=== PATIENT | female | born 1955 | race Caucasian/White ===

== ENCOUNTER 2017-04-22 21:00 | Emergency (ER) | payer BC, OTHER ==
[2017-04-22] MEDS ORDERED: methylPREDNISolone SOD SUCCI 125 MG/2 ML VIAL IV STA (21:18)
[2017-04-22] MEDS ORDERED: IPRATROPIUM-ALBUTEROL 3 ML NEB INHALATION STA (21:18)
[2017-04-22] MEDS ORDERED: KETOROLAC 60 MG/2 ML VIAL IVP STA (21:21)
--- NOTE | 2017-04-22 21:27 | ED ---
General Adult HPI - General Chief complaint: Shortness of Breath Stated complaint: SOB/Chest Pain Time Seen by Provider: 04/22/17 21:05 Source: patient, RN notes reviewed Mode of arrival: wheelchair Limitations: no limitations - History of Present Illness Initial comments: Is a 61-year-old female presents emergency Department with a past medical history significant for COPD and she continues to smoke. Patient states that last Friday she's had a nonproductive cough. She states that today she was coughing real hard and her lower chest started to hurt every time she cough. Patient states she has no pain unless she is coughing. Patient states she short of breath but no different than her normal COPD. Patient denies any fever or chills. Patient denies any palpitations. Again patient has no chest pain except when she is coughing. Patient denies abdominal pain patient denies nausea vomiting diarrhea per patient denies lightheadedness dizziness or near syncopal episode. - Related Data Home Medications Medication Instructions Recorded Confirmed Albuterol Nebulized [Ventolin 2.5 mg INHALATION RT-QID PRN 06/17/16 04/22/17 Nebulized] Albuterol Sulfate [Proair 1 puff INHALATION RT-QID PRN 04/22/17 04/22/17 Respiclick] Ipratropium Nebulized [Atrovent 0.5 mg INHALATION RT-QID PRN 04/22/17 04/22/17 Nebulized] Previous Rx's Medication Instructions Recorded Ciprofloxacin HCl [Cipro] 500 mg PO Q12HR #20 tablet 04/22/17 predniSONE 40 mg PO DAILY #8 tab 04/22/17 Allergies Allergy/AdvReac Type Severity Reaction Status Date / Time latex Allergy Rash/Hives Verified 04/22/17 21:25 sulfamethoxazole Allergy Rash/Hives Verified 04/22/17 21:07 [From Bactrim] trimethoprim [From Bactrim] Allergy Rash/Hives Verified 04/22/17 21:07 amoxicillin AdvReac Vomiting Verified 04/22/17 21:07 Review of Systems ROS Statement: Those systems with pertinent positive or pertinent negative responses have been documented in the HPI. ROS Other: All systems not noted in ROS Statement are negative. Past Medical History Past Medical History: Cancer, COPD, GERD/Reflux, Osteoarthritis (OA) Additional Past Medical History / Comment(s): uterine cancer, MIGRAINES, SPONTANEOUS PNEUMOTHORAX X2, IRREG RYTHYM, BEGINNING OF MAC DEHENERATION,DIET CONTROLLED DIABETIC DOESNT CHECK BS OR TAKE ANY MEDS History of Any Multi-Drug Resistant Organisms: None Reported Past Surgical History: Appendectomy, Bladder Surgery, Section, Hysterectomy, Uterine Ablation Additional Past Surgical History / Comment(s): spontaneous pneumothorax X2/ CHEST TUBE WITH FIRST ONE, COLONOSCOPY POLYPECTOMY-BENIGN/EGD, RTWRIST GANGLION CYST REMOVED. Past Anesthesia/Blood Transfusion Reactions: No Reported Reaction Past Psychological History: Anxiety, Depression Smoking Status: Current every day smoker Past Alcohol Use History: None Reported Additional Past Alcohol Use History / Comment(s): SMOKES 1.5-2 PPD Past Drug Use History: None Reported - Past Family History Father Family Medical History: Cancer, Myocardial Infarction ([place]), Osteoarthritis (OA) Additional Family Medical History / Comment(s): WAS AN ALCOHOLIC/FELL DOWN FLIGHT OF STEPS HAD SKULL FX, LUNG CA Mother Family Medical History: COPD, Osteoarthritis (OA) Additional Family Medical History / Comment(s): GLAUCOMA General Exam - General Exam Comments Initial Comments: GENERAL: Patient is well-developed and well-nourished. Patient is nontoxic and well- hydrated and is in mild distress. ENT: Neck is soft and supple. No significant lymphadenopathy is noted. Oropharynx is clear. Moist mucous membranes. Neck has full range of motion without eliciting any pain. EYES: The sclera were anicteric and conjunctiva were pink and moist. Extraocular movements were intact and pupils were equal round and reactive to light. Eyelids were unremarkable. PULMONARY: Unlabored respirations. Good breath sounds bilaterally. Expiratory wheezing and rhonchi throughout CARDIOVASCULAR: There is a regular rate and rhythm without any murmurs gallops or rubs. ABDOMEN: Soft and nontender with normal bowel sounds. No palpable organomegaly was noted. There is no palpable pulsatile mass. SKIN: Skin is clear with no lesions or rashes and otherwise unremarkable. NEUROLOGIC: Patient is alert and oriented x3. Cranial nerves II through XII are grossly intact. Motor and sensory are also intact. Normal speech, volume and content. Symmetrical smile. MUSCULOSKELETAL: Normal extremities with adequate strength and full range of motion. No lower extremity swelling or edema. No calf tenderness. LYMPHATICS: No significant lymphadenopathy is noted PSYCHIATRIC: Normal psychiatric evaluation. Normal interpersonal interactions appears functionally intact in deals appropriately with others. No signs of depression. No signs of anxiety. Limitations: no limitations Course Vital Signs 04/22/17 04/22/17 04/22/17 21:05 21:17 21:48 Temperature 98.3 F Pulse Rate 77 78 Respiratory 22 22 22 Rate Blood Pressure 152/71 129/71 O2 Sat by Pulse 99 98 Oximetry 04/22/17 04/22/17 04/22/17 21:50 22:01 22:55 Temperature 97.9 F Pulse Rate 81 88 79 Respiratory 20 Rate Blood Pressure 136/67 O2 Sat by Pulse 97 Oximetry Medical Decision Making - Medical Decision Making EKG shows normal sinus rhythm at 76 bpm [place] interval is 122 QRS is 86 QT interval 390 QTC is 438. Patient's EKG shows no ST segment elevation or depression or T-wave abdomen is noted. Chest x-ray shows no acute abnormality. I went back and after the patient received a breathing treatment and steroids she was much more clear feeling much better and continued to sat between 9900% on room air. I discussed with the patient for at least 30 minutes the benefits of quitting smoking and the potential hazards of smoking. - Lab Data Result diagrams: 04/22/17 21:35 04/22/17 21:35 Lab Results 04/22/17 04/22/17 04/22/17 Range/Units 21:35 21:35 21:35 WBC 10.7 H (3.8-10.6) k/uL RBC 3.97 (3.80-5.40) m/uL Hgb 12.9 (11.4-16.0) gm/dL Hct 38.9 (34.0-46.0) % MCV 98.1 (80.0-100.0) fL MCH 32.6 (25.0-35.0) pg MCHC 33.2 (31.0-37.0) g/dL RDW 13.4 (11.5-15.5) % Plt Count 303 (150-450) k/uL Neutrophils % 58 % Lymphocytes % 33 % Monocytes % 3 % Eosinophils % 3 % Basophils % 1 % Neutrophils # 6.3 (1.3-7.7) k/uL Lymphocytes # 3.6 (1.0-4.8) k/uL Monocytes # 0.4 (0-1.0) k/uL Eosinophils # 0.3 (0-0.7) k/uL Basophils # 0.1 (0-0.2) k/uL PT (9.0-12.0) sec INR (<1.1) APTT (22.0-30.0) sec Sodium 141 (137-145) mmol/L Potassium 4.2 (3.5-5.1) mmol/L Chloride 106 (98-107) mmol/L Carbon Dioxide 24 (22-30) mmol/L Anion Gap 11 mmol/L BUN 18 H (7-17) mg/dL Creatinine 0.73 (0.52-1.04) mg/dL Est GFR (MDRD) Af Amer >60 (>60 ml/min/1.73 sqM) Est GFR (MDRD) Non-Af >60 (>60 ml/min/1.73 sqM) Glucose 97 (74-99) mg/dL Calcium 9.3 (8.4-10.2) mg/dL Magnesium 2.0 (1.6-2.3) mg/dL Total Bilirubin 0.4 (0.2-1.3) mg/dL AST 22 (14-36) U/L ALT 18 (9-52) U/L Alkaline Phosphatase 74 (38-126) U/L Total Creatine Kinase 31 (30-135) U/L CK-MB (CK-2) 0.5 (0.0-2.4) ng/mL CK-MB (CK-2) Rel Index 1.6 Troponin I <0.012 (0.000-0.034) ng/mL NT-Pro-B Natriuret Pep pg/mL Total Protein 6.6 (6.3-8.2) g/dL Albumin 4.1 (3.5-5.0) g/dL 04/22/17 04/22/17 Range/Units 21:35 21:35 WBC (3.8-10.6) k/uL RBC (3.80-5.40) m/uL Hgb (11.4-16.0) gm/dL Hct (34.0-46.0) % MCV (80.0-100.0) fL MCH (25.0-35.0) pg MCHC (31.0-37.0) g/dL RDW (11.5-15.5) % Plt Count (150-450) k/uL Neutrophils % % Lymphocytes % % Monocytes % % Eosinophils % % Basophils % % Neutrophils # (1.3-7.7) k/uL Lymphocytes # (1.0-4.8) k/uL Monocytes # (0-1.0) k/uL Eosinophils # (0-0.7) k/uL Basophils # (0-0.2) k/uL PT 9.8 (9.0-12.0) sec INR 1.0 (<1.1) APTT 23.0 (22.0-30.0) sec Sodium (137-145) mmol/L Potassium (3.5-5.1) mmol/L Chloride (98-107) mmol/L Carbon Dioxide (22-30) mmol/L Anion Gap mmol/L BUN (7-17) mg/dL Creatinine (0.52-1.04) mg/dL Est GFR (MDRD) Af Amer (>60 ml/min/1.73 sqM) Est GFR (MDRD) Non-Af (>60 ml/min/1.73 sqM) Glucose (74-99) mg/dL Calcium (8.4-10.2) mg/dL Magnesium (1.6-2.3) mg/dL Total Bilirubin (0.2-1.3) mg/dL AST (14-36) U/L ALT (9-52) U/L Alkaline Phosphatase (38-126) U/L Total Creatine Kinase (30-135) U/L CK-MB (CK-2) (0.0-2.4) ng/mL CK-MB (CK-2) Rel Index Troponin I (0.000-0.034) ng/mL NT-Pro-B Natriuret Pep 221 pg/mL Total Protein (6.3-8.2) g/dL Albumin (3.5-5.0) g/dL Disposition Clinical Impression: COPD with acute exacerbation, Bronchitis Disposition: HOME SELF-CARE Instructions: COPD (Chronic Obstructive Pulmonary Disease) (ED) Prescriptions: Ciprofloxacin HCl [Cipro] 500 mg PO Q12HR #20 tablet predniSONE 40 mg PO DAILY #8 tab Referrals: Butch Ramos DO [Primary Care Provider] - 1-2 days Time of Disposition: 23:04
[2017-04-22 22:04] LABS: Basophils # (A) 0.1 k/uL (0-0.2); Basophils % (A) 1 %; CH 32.4; CHCM 33.2; Eosinophils # (A) 0.3 k/uL (0-0.7); Eosinophils % (A) 3 %; HCT 38.9 % (34.0-46.0); HGB 12.9 gm/dL (11.4-16.0); Luc # (Auto) 0.19; Luc % (Auto) 2; Lymphocytes # (A) 3.6 k/uL (1.0-4.8); Lymphocytes % (A) 33 %; MCH 32.6 pg (25.0-35.0); MCHC 33.2 g/dL (31.0-37.0); MCV 98.1 fL (80.0-100.0); Mean Platelet Volume 6.9; Monocytes # (A) 0.4 k/uL (0-1.0); Monocytes % (A) 3 %; Neutrophils # (A) 6.3 k/uL (1.3-7.7); Neutrophils % (A) 58 %; RBC 3.97 m/uL (3.80-5.40); RDW 13.4 % (11.5-15.5); WBC 10.7 k/uL (3.8-10.6); WBC (Perox) 10.78
[2017-04-22 22:14] LABS: Prothrombin Time 9.8 sec (9.0-12.0)
--- NOTE | 2017-04-22 22:14 | XR ---
EXAM: XR Chest, 2 Views CLINICAL HISTORY: Reason: difficulty breathing TECHNIQUE: Frontal and lateral views of the chest. COMPARISON: Chest x-ray 06/17/2016. FINDINGS: Lungs: Unremarkable. No consolidation. Pleural space: Unremarkable. No pneumothorax. Heart: Unremarkable. No cardiomegaly. Mediastinum: Unremarkable. Bones/joints: Mild degenerative changes of the spine. IMPRESSION: No acute cardiopulmonary process.
[2017-04-22 22:17] LABS: ALT 18 U/L (9-52); AST 22 U/L (14-36); Alkaline Phosphatase 74 U/L (38-126); Anion Gap 11 mmol/L; Blood Urea Nitrogen 18 mg/dL (7-17); Calcium 9.3 mg/dL (8.4-10.2); Carbon Dioxide 24 mmol/L (22-30); Chloride 106 mmol/L (98-107); Glucose 97 mg/dL (74-99); Non-African American GFR(MDRD) >60 (>60 ml/min/1.73 sqM); Potassium 4.2 mmol/L (3.5-5.1); Sodium 141 mmol/L (137-145); Total Bilirubin 0.4 mg/dL (0.2-1.3); Total Protein 6.6 g/dL (6.3-8.2)
[2017-04-22 22:22] LABS: Creatine Kinase 31 U/L (30-135)
[2017-04-22 22:35] LABS: Creatine Kinase MB 0.5 ng/mL (0.0-2.4); Troponin I <0.012 ng/mL (0.000-0.034)
[2017-04-22 22:57] VITALS: RESP 20
[2017-04-22 23:45] VITALS: BP 130/65; PULSE 72; TEMP 98.2
== END 2017-04-22 23:30 | disposition home or self-care (01) ==
LOC: EC 21:00
DX: J44.1 Chronic obstructive pulmonary disease with (acute) exacerbation (principal); F17.200 Nicotine dependence, unspecified, uncomplicated; Z85.42 Personal history of malignant neoplasm of other parts of uterus; Z88.2 Allergy status to sulfonamides; Z88.0 Allergy status to penicillin; Z91.040 Latex allergy status
CPT/HCPCS: 36415; 94640; 93005; 83880; 80053; 82550; 82553; 83735; 84484; 85025; 85610; 85730; 87040; 71020; 99285; 96374; 96375; J2930; J1885

== ENCOUNTER 2017-12-01 22:18 | Observation (INO) | payer OTHER ==
[2017-12-01 22:23] VITALS: TEMP 97.8
--- NOTE | 2017-12-01 23:02 | ED ---
General Adult HPI - General Chief complaint: Chest Pain Stated complaint: Chest Pain Time Seen by Provider: 12/01/17 22:29 Source: patient, RN notes reviewed, old records reviewed Mode of arrival: ambulatory Limitations: no limitations - History of Present Illness Initial comments: 60-year-old female presenting for evaluation of chest pain. Patient states she had chest pain that began 2 hours prior to presentation. This was a substernal squeezing chest pain that radiated into her neck and jaw. Denies associated diaphoresis or nausea. She has a history of acid reflux and she has had several episodes similar to this in the past. She takes omeprazole on this has resolved her symptoms previously. She denies any exertional chest pain in the past. Symptoms began at rest today. No abdominal pain and no diaphoresis. Patient's pain did travel from her chest into her jaw and back. At the time my evaluation patient's pain is resolved. She is comfortable with no complaints. She has a family history of CAD and is a current smoker. Only medication she is currently taking his omeprazole. Patient denies rectal bleeding, denies melena. - Related Data Home Medications Medication Instructions Recorded Confirmed Albuterol Nebulized [Ventolin 2.5 mg INHALATION RT-QID PRN 06/17/16 12/01/17 Nebulized] Albuterol Sulfate [Proair 1 puff INHALATION RT-QID PRN 04/22/17 12/01/17 Respiclick] Omeprazole 40 mg PO DAILY PRN 12/01/17 12/01/17 Otc Sleep Aide 1 tab PO HS 12/01/17 12/01/17 Allergies Allergy/AdvReac Type Severity Reaction Status Date / Time latex Allergy Rash/Hives Verified 12/01/17 22:51 sulfamethoxazole Allergy Rash/Hives Verified 12/01/17 22:51 [From Bactrim] trimethoprim [From Bactrim] Allergy Rash/Hives Verified 12/01/17 22:51 Review of Systems ROS Statement: Those systems with pertinent positive or pertinent negative responses have been documented in the HPI. ROS Other: All systems not noted in ROS Statement are negative. Past Medical History Past Medical History: Cancer, COPD, GERD/Reflux, Osteoarthritis (OA) Additional Past Medical History / Comment(s): uterine cancer, MIGRAINES, SPONTANEOUS PNEUMOTHORAX X2, IRREG RYTHYM, BEGINNING OF MAC DEHENERATION,DIET CONTROLLED DIABETIC DOESNT CHECK BS OR TAKE ANY MEDS History of Any Multi-Drug Resistant Organisms: None Reported Past Surgical History: Appendectomy, Bladder Surgery, Section, Hysterectomy, Uterine Ablation Additional Past Surgical History / Comment(s): spontaneous pneumothorax X2/ CHEST TUBE WITH FIRST ONE, COLONOSCOPY POLYPECTOMY-BENIGN/EGD, RTWRIST GANGLION CYST REMOVED. Past Anesthesia/Blood Transfusion Reactions: No Reported Reaction Past Psychological History: Anxiety, Depression Smoking Status: Current every day smoker Past Alcohol Use History: Rare Past Drug Use History: None Reported - Past Family History Father Family Medical History: Cancer, Myocardial Infarction ([place]), Osteoarthritis (OA) Additional Family Medical History / Comment(s): WAS AN ALCOHOLIC/FELL DOWN FLIGHT OF STEPS HAD SKULL FX, LUNG CA Mother Family Medical History: COPD, Osteoarthritis (OA) Additional Family Medical History / Comment(s): GLAUCOMA General Exam Limitations: no limitations General appearance: alert, in no apparent distress Head exam: Present: atraumatic, normocephalic Eye exam: Present: normal appearance, PERRL ENT exam: Present: normal exam Neck exam: Present: normal inspection. Absent: tenderness Respiratory exam: Present: normal lung sounds bilaterally. Absent: respiratory distress Cardiovascular Exam: Present: regular rate, normal rhythm GI/Abdominal exam: Present: soft. Absent: distended, tenderness Extremities exam: Present: normal inspection, normal capillary refill. Absent: pedal edema Back exam: Present: normal inspection, full ROM Neurological exam: Present: alert, oriented X3, CN II-XII intact. Absent: motor sensory deficit Psychiatric exam: Present: normal affect, normal mood Skin exam: Present: warm, dry, intact. Absent: cyanosis, diaphoretic Course Vital Signs 12/01/17 12/01/17 12/02/17 22:20 23:20 00:20 Temperature 97.8 F Pulse Rate 62 70 62 Respiratory 18 16 16 Rate Blood Pressure 187/103 130/79 112/66 O2 Sat by Pulse 99 97 96 Oximetry EKG Findings - EKG Comments: EKG Findings:: EKG shows normal sinus rhythm, left atrial enlargement, ventricular rate 64, ID interval 140, castration 88, QTC 435, there is subtle ST segment depression which is new compared to EKG in the inferior leads as well as the lateral precordial leads. No ST segment elevation. Medical Decision Making - Medical Decision Making 60-year-old female presenting with chest pain which is typical in nature. She has had this intermittent pain in the past. Symptoms began today approximately 2 hours prior to arrival. She was pain-free at the time my evaluation and remained pain-free while in the emergency department. Workup includes normal white blood cell count, stable hemoglobin 12.7, d-dimer is negative, troponin negative, white lites normal. Chest x-ray no acute findings. Patient's history with the current smoker and family history is concerning for CAD. She is started on heparin and will be admitted for serial cardiac enzymes and cardiology consultation. Diagnosis: Unstable angina - Lab Data Result diagrams: 12/01/17 22:36 12/01/17 22:36 Lab Results 12/01/17 12/01/17 12/01/17 Range/Units 22:36 22:36 22:36 WBC 7.6 (3.8-10.6) k/uL RBC 4.02 (3.80-5.40) m/uL Hgb 12.7 (11.4-16.0) gm/dL Hct 40.9 (34.0-46.0) % MCV 101.8 H (80.0-100.0) fL MCH 31.6 (25.0-35.0) pg MCHC 31.1 (31.0-37.0) g/dL RDW 14.5 (11.5-15.5) % Plt Count 255 (150-450) k/uL Neutrophils % 52 % Lymphocytes % 39 % Monocytes % 4 % Eosinophils % 3 % Basophils % 1 % Neutrophils # 4.0 (1.3-7.7) k/uL Lymphocytes # 2.9 (1.0-4.8) k/uL Monocytes # 0.3 (0-1.0) k/uL Eosinophils # 0.2 (0-0.7) k/uL Basophils # 0.1 (0-0.2) k/uL Macrocytosis Slight PT (9.0-12.0) sec INR (<1.2) APTT (22.0-30.0) sec D-Dimer (<0.60) mg/L FEU Sodium 138 (137-145) mmol/L Potassium 3.7 (3.5-5.1) mmol/L Chloride 100 (98-107) mmol/L Carbon Dioxide 28 (22-30) mmol/L Anion Gap 10 mmol/L BUN 16 (7-17) mg/dL Creatinine 0.70 (0.52-1.04) mg/dL Est GFR (MDRD) Af Amer >60 (>60 ml/min/1.73 sqM) Est GFR (MDRD) Non-Af >60 (>60 ml/min/1.73 sqM) Glucose 104 H (74-99) mg/dL Calcium 9.4 (8.4-10.2) mg/dL Magnesium 1.9 (1.6-2.3) mg/dL Total Bilirubin 0.3 (0.2-1.3) mg/dL AST 15 (14-36) U/L ALT 25 (9-52) U/L Alkaline Phosphatase 84 (38-126) U/L Total Creatine Kinase 34 (30-135) U/L CK-MB (CK-2) 0.7 (0.0-2.4) ng/mL CK-MB (CK-2) Rel Index 2.1 Troponin I <0.012 (0.000-0.034) ng/mL NT-Pro-B Natriuret Pep pg/mL Total Protein 6.8 (6.3-8.2) g/dL Albumin 4.1 (3.5-5.0) g/dL Lipase 50 (23-300) U/L Stool Occult Blood (Negative) 12/01/17 12/01/17 12/02/17 Range/Units 22:36 22:36 00:13 WBC (3.8-10.6) k/uL RBC (3.80-5.40) m/uL Hgb (11.4-16.0) gm/dL Hct (34.0-46.0) % MCV (80.0-100.0) fL MCH (25.0-35.0) pg MCHC (31.0-37.0) g/dL RDW (11.5-15.5) % Plt Count (150-450) k/uL Neutrophils % % Lymphocytes % % Monocytes % % Eosinophils % % Basophils % % Neutrophils # (1.3-7.7) k/uL Lymphocytes # (1.0-4.8) k/uL Monocytes # (0-1.0) k/uL Eosinophils # (0-0.7) k/uL Basophils # (0-0.2) k/uL Macrocytosis PT 10.2 (9.0-12.0) sec INR 1.0 (<1.2) APTT 24.5 (22.0-30.0) sec D-Dimer 0.48 (<0.60) mg/L FEU Sodium (137-145) mmol/L Potassium (3.5-5.1) mmol/L Chloride (98-107) mmol/L Carbon Dioxide (22-30) mmol/L Anion Gap mmol/L BUN (7-17) mg/dL Creatinine (0.52-1.04) mg/dL Est GFR (MDRD) Af Amer (>60 ml/min/1.73 sqM) Est GFR (MDRD) Non-Af (>60 ml/min/1.73 sqM) Glucose (74-99) mg/dL Calcium (8.4-10.2) mg/dL Magnesium (1.6-2.3) mg/dL Total Bilirubin (0.2-1.3) mg/dL AST (14-36) U/L ALT (9-52) U/L Alkaline Phosphatase (38-126) U/L Total Creatine Kinase (30-135) U/L CK-MB (CK-2) (0.0-2.4) ng/mL CK-MB (CK-2) Rel Index Troponin I (0.000-0.034) ng/mL NT-Pro-B Natriuret Pep 346 pg/mL Total Protein (6.3-8.2) g/dL Albumin (3.5-5.0) g/dL Lipase (23-300) U/L Stool Occult Blood Negative (Negative) Critical Care Time Critical Care Time: Yes Total Critical Care Time: 35 Disposition Clinical Impression: Unstable angina pectoris Disposition: ADMITTED IP TO THIS [facility] Condition: Stable Referrals: Butch Ramos DO [Primary Care Provider] - 1-2 days Decision to Admit Reason: Admit from EC Decision Date: 12/02/17 Decision Time: 01:06
[2017-12-01 23:09] LABS: Basophils # (A) 0.1 k/uL (0-0.2); Basophils % (A) 1 %; Eosinophils # (A) 0.2 k/uL (0-0.7); Eosinophils % (A) 3 %; HCT 40.9 % (34.0-46.0); HGB 12.7 gm/dL (11.4-16.0); Lymphocytes # (A) 2.9 k/uL (1.0-4.8); Lymphocytes % (A) 39 %; MCH 31.6 pg (25.0-35.0); MCHC 31.1 g/dL (31.0-37.0); MCV 101.8 fL (80.0-100.0); Macrocytosis Slight; Mean Platelet Volume 7.3; Monocytes # (A) 0.3 k/uL (0-1.0); Monocytes % (A) 4 %; Neutrophils % (A) 52 %; Platelet Count 255 k/uL (150-450); RBC 4.02 m/uL (3.80-5.40); RDW 14.5 % (11.5-15.5); WBC 7.6 k/uL (3.8-10.6)
--- NOTE | 2017-12-01 23:19 | XR ---
EXAMINATION TYPE: XR chest 2V DATE OF EXAM: 12/01/2017 COMPARISON: 04/22/2017 HISTORY: Chest pain TECHNIQUE: Frontal and lateral views of the chest are obtained. FINDINGS: Heart and mediastinum are normal. Lungs are clear. Costophrenic angles are clear. There ar e chest leads. There is mild pleural thickening at the lung apices. Bony thorax is intact. IMPRESSION: No active cardiopulmonary disease. No change.
[2017-12-01 23:23] LABS: ALT 25 U/L (9-52); AST 15 U/L (14-36); Albumin 4.1 g/dL (3.5-5.0); Alkaline Phosphatase 84 U/L (38-126); Anion Gap 10 mmol/L; Blood Urea Nitrogen 16 mg/dL (7-17); Calcium 9.4 mg/dL (8.4-10.2); Carbon Dioxide 28 mmol/L (22-30); Chloride 100 mmol/L (98-107); Glucose 104 mg/dL (74-99); Lipase 50 U/L (23-300); Magnesium 1.9 mg/dL (1.6-2.3); Potassium 3.7 mmol/L (3.5-5.1); Sodium 138 mmol/L (137-145); Total Bilirubin 0.3 mg/dL (0.2-1.3); Total Protein 6.8 g/dL (6.3-8.2)
[2017-12-01 23:31] LABS: D-Dimer 0.48 mg/L FEU (<0.60); Partial Thromboplastin Time 24.5 sec (22.0-30.0); Prothrombin Time 10.2 sec (9.0-12.0)
[2017-12-01 23:33] LABS: Creatine Kinase 34 U/L (30-135)
[2017-12-01 23:46] LABS: Creatine Kinase MB 0.7 ng/mL (0.0-2.4); Troponin I <0.012 ng/mL (0.000-0.034)
[2017-12-02] MEDS ORDERED: HEPARIN SODIUM,PORCINE 5,000 UNIT/ML 1 ML VIAL IV PRN (01:01)
[2017-12-02] MEDS ORDERED: HEPARIN SODIUM,PORCINE 5,000 UNIT/ML 1 ML VIAL IV ONE (01:01)
[2017-12-02] MEDS ORDERED: ASPIRIN 325 MG TAB PO STA (01:01)
[2017-12-02] MEDS ORDERED: ACETAMINOPHEN TAB 325 MG TAB PO PRN (01:02)
[2017-12-02] MEDS ORDERED: HYDROmorphone 1 MG/ML 1 ML SYRINGE IVP PRN (01:02)
[2017-12-02] MEDS ORDERED: ONDANSETRON 4 MG/2 ML VIAL IVP PRN (01:02)
[2017-12-02] MEDS ORDERED: NALOXONE 0.4 MG/ML 1 ML VIAL IV PRN (01:02)
[2017-12-02] MEDS ORDERED: HEPARIN SOD,PORK IN 0.45% NACL 25,000 UNIT in 0.45% NACL 1 500ML.BAG IV SCH (01:15)
[2017-12-02] MEDS ORDERED: SODIUM CHLORIDE 0.9% 1,000 ML IV SCH (01:15)
[2017-12-02 01:41] VITALS: RESP 18
[2017-12-02 05:13] LABS: Creatine Kinase 25 U/L (30-135)
[2017-12-02 05:27] LABS: Creatine Kinase MB 0.5 ng/mL (0.0-2.4); Troponin I <0.012 ng/mL (0.000-0.034)
[2017-12-02] MEDS ORDERED: RX INFO: IV CONTRAST WAS GIVEN 1 EACH MISC MISCELLANE PRN (08:19)
--- NOTE | 2017-12-02 08:43 | P.CRDCN ---
History of Present Illness Consult reason: chest pain History of present illness: 62-year-old female presenting with chest discomfort that radiates through to her back and up into her neck, lasted for about 20 minutes was very severe pain eased off but then came back once again. 2 normal cardiac enzymes so far ECG does not show any definite ST segment abnormalities. Last he has stress test showed ST depression in d-dimer is normal Patient of Dr. Becker Patient interviewed and examined with nurse practitioner. Please see full dictation. Impression Chest discomfort, severe, radiation through to the back and up into the neck, assess for aortic dissection and if aorta is normal then proceed with dobutamine stress echo Smoker, smoking cessation would be advisable 2-D echo and Doppler study to assess cardiac structure and function Past Medical History Past Medical History: Cancer, COPD, GERD/Reflux, Osteoarthritis (OA) Additional Past Medical History / Comment(s): uterine cancer, MIGRAINES, SPONTANEOUS PNEUMOTHORAX X2, IRREG RYTHYM, BEGINNING OF MAC DEGENERATION,DIET CONTROLLED DIABETIC DOESNT CHECK BS OR TAKE ANY MEDS History of Any Multi-Drug Resistant Organisms: None Reported Past Surgical History: Appendectomy, Bladder Surgery, Section, Hysterectomy, Uterine Ablation Additional Past Surgical History / Comment(s): spontaneous pneumothorax X2/ CHEST TUBE WITH FIRST ONE, COLONOSCOPY POLYPECTOMY-BENIGN/EGD, RTWRIST GANGLION CYST REMOVED. Past Anesthesia/Blood Transfusion Reactions: No Reported Reaction Past Psychological History: Anxiety, Depression Smoking Status: Current every day smoker Past Alcohol Use History: Rare Additional Past Alcohol Use History / Comment(s): SMOKES 1.5-2 PPD Past Drug Use History: None Reported - Past Family History Father Family Medical History: Cancer, Myocardial Infarction ([place]), Osteoarthritis (OA) Additional Family Medical History / Comment(s): WAS AN ALCOHOLIC/FELL DOWN FLIGHT OF STEPS HAD SKULL FX, LUNG CA Mother Family Medical History: COPD, Osteoarthritis (OA) Additional Family Medical History / Comment(s): GLAUCOMA Medications and Allergies Home Medications Medication Instructions Recorded Confirmed Type Albuterol Nebulized [Ventolin 2.5 mg INHALATION RT-QID PRN 06/17/16 12/01/17 History Nebulized] Albuterol Sulfate [Proair 1 puff INHALATION RT-QID PRN 04/22/17 12/01/17 History Respiclick] Omeprazole 40 mg PO DAILY PRN 12/01/17 12/01/17 History Otc Sleep Aide 1 tab PO HS 12/01/17 12/01/17 History Allergies Allergy/AdvReac Type Severity Reaction Status Date / Time latex Allergy Rash/Hives Verified 12/01/17 22:51 sulfamethoxazole Allergy Rash/Hives Verified 12/01/17 22:51 [From Bactrim] trimethoprim [From Bactrim] Allergy Rash/Hives Verified 12/01/17 22:51 Physical Exam Vitals: Vital Signs Temp Pulse Pulse Resp BP BP Pulse Ox 12/02/17 05:42 97.9 F 57 L 16 98/56 97 12/02/17 02:33 57 L 16 12/02/17 02:00 98.1 F 57 L 16 134/67 100 12/02/17 01:40 57 L 18 124/80 98 12/02/17 00:20 62 16 112/66 96 12/01/17 23:20 70 16 130/79 97 12/01/17 22:20 97.8 F 62 18 187/103 99 Intake and Output 12/01/17 12/02/17 12/02/17 22:59 06:59 14:59 Other: # Voids 2 Weight 64.864 kg 64.864 kg Results 12/01/17 22:36 12/01/17 22:36 Cardiac Enzymes 12/01/17 12/01/17 12/02/17 Range/Units 22:36 22:36 04:21 AST 15 (14-36) U/L CK-MB (CK-2) 0.7 0.5 (0.0-2.4) ng/mL Troponin I <0.012 <0.012 (0.000-0.034) ng/mL Coagulation 12/01/17 Range/Units 22:36 PT 10.2 (9.0-12.0) sec APTT 24.5 (22.0-30.0) sec CBC 12/01/17 Range/Units 22:36 WBC 7.6 (3.8-10.6) k/uL RBC 4.02 (3.80-5.40) m/uL Hgb 12.7 (11.4-16.0) gm/dL Hct 40.9 (34.0-46.0) % Plt Count 255 (150-450) k/uL Comprehensive Metabolic Panel 12/01/17 Range/Units 22:36 Sodium 138 (137-145) mmol/L Potassium 3.7 (3.5-5.1) mmol/L Chloride 100 (98-107) mmol/L Carbon Dioxide 28 (22-30) mmol/L BUN 16 (7-17) mg/dL Creatinine 0.70 (0.52-1.04) mg/dL Glucose 104 H (74-99) mg/dL Calcium 9.4 (8.4-10.2) mg/dL AST 15 (14-36) U/L ALT 25 (9-52) U/L Alkaline Phosphatase 84 (38-126) U/L Total Protein 6.8 (6.3-8.2) g/dL Albumin 4.1 (3.5-5.0) g/dL Current Medications Generic Name Dose Route Start Last Admin Trade Name Freq PRN Reason Stop Dose Admin Acetaminophen 650 mg 12/02/17 01:02 Tylenol Tab PO Q6HR PRN Mild Pain or Fever > 100.5 Heparin Sodium (Porcine) 0 unit 12/02/17 01:01 Heparin IV PER PROTOCOL PRN Low PTT Protocol Hydromorphone HCl 0.5 mg 12/02/17 01:02 Dilaudid IVP Q3HR PRN Moderate Pain Heparin Sodium/Sodium Chloride 500 mls @ 15.56 mls/hr 12/02/17 01:15 01:39 25,000 unit/ Sodium Chloride IV 12 units/kg/hr .Q24H VENECIA 15.56 mls/hr Protocol Administration 12 UNITS/KG/HR Sodium Chloride 1,000 mls @ 75 mls/hr 12/02/17 01:15 12/02/17 01:37 Saline 0.9% IV 75 mls/hr .[id number] VENECIA Administration Miscellaneous Information 1 each 12/02/17 08:19 Rx Info: Iv Contrast Was Given MISCELLANE 12/04/17 08:19 DAILY PRN Per Protocol Naloxone HCl 0.2 mg 12/02/17 01:02 Narcan IV Q2M PRN Opioid Reversal Ondansetron HCl 4 mg 12/02/17 01:02 Zofran IVP Q8HR PRN Nausea And Vomiting Intake and Output 12/01/17 12/02/17 12/02/17 22:59 06:59 14:59 Other: # Voids 2 Weight 64.864 kg 64.864 kg 12/01/17 22:36 12/01/17 22:36
--- NOTE | 2017-12-02 10:39 | P.CRDCN ---
History of Present Illness Consult date: 12/02/17 History of present illness: Mrs. Hauser is a pleasant 62-year-old female past medical history significant for COPD, gastroesophageal reflux disease and uterine cancer. She is also an everyday smoker. She follows with Dr. Becker as an outpatient. We have been asked to see her in consultation for complaints of chest pain. She states yesterday evening while she was sitting up in bed she felt a burning in the midsternal region of her chest. She has felt this before and it was her GERD so she tried taking an omeprazole with no relief. Then the pain moved through to her back and up into her neck and right jaw line. This last for approximately 20 minutes and subsided on its own with no specific alleviating factors. She denies associated shortness of breath, dizziness, nausea, vomiting or diaphoresis. She states she did feel her heart flip flopping momentarily. She had an exercise stress test as an outpatient that was positive secondary to ST depression at 7 minutes of exercise in the inferior leads that went back to baseline after 1 minute of rest. Follow-up with stress echo was recommended. She has had no recurrence of chest pain since the initial episode yesterday. EKG on arrival reveals sinus mechanism with ST depression in inferior leads. Chest xray negative for acute cardiopulmonary process. Laboratory data reviewed, d-dimer negative, cardiac enzymes negative x2. She takes no cardiac medications. Review of Systems At the time of my exam CONSTITUTIONAL: Denies fever. Denies chills. EYES: Denies blurred vision. Denies vision changes. Denies eye pain. EARS, NOSE, MOUTH & THROAT: Denies headache. Denies sore throat. Denies ear pain. CARDIOVASCULAR: Denies chest pain. Denies shortness of breath. Denies orthopnea. Denies PND. Denies palpitations. RESPIRATORY: Denies cough. GASTROINTESTINAL: Denies abdominal pain. Denies diarrhea. Denies constipation. Denies nausea. Denies vomiting. MUSCULOSKELETAL: Denies myalgias. INTEGUMENTARY: Denies pruitis. Denies rash. NEUROLOGIC: Denies numbness. Denies tingling. Denies weakness. PSYCHIATRIC: Denies anxiety. Denies depression. ENDOCRINE: Denies fatigue. Denies weight change. Denies polydipsia. Denies polyurina. GENITOURINARY: Denies burning, hematuria or urgency with micturation. HEMATOLOGIC: Denies history of anemia. Denies bleeding. Past Medical History Past Medical History: Cancer, COPD, GERD/Reflux, Osteoarthritis (OA) Additional Past Medical History / Comment(s): uterine cancer, MIGRAINES, SPONTANEOUS PNEUMOTHORAX X2, IRREG RYTHYM, BEGINNING OF MAC DEGENERATION,DIET CONTROLLED DIABETIC DOESNT CHECK BS OR TAKE ANY MEDS History of Any Multi-Drug Resistant Organisms: None Reported Past Surgical History: Appendectomy, Bladder Surgery, Section, Hysterectomy, Uterine Ablation Additional Past Surgical History / Comment(s): spontaneous pneumothorax X2/ CHEST TUBE WITH FIRST ONE, COLONOSCOPY POLYPECTOMY-BENIGN/EGD, RTWRIST GANGLION CYST REMOVED. Past Anesthesia/Blood Transfusion Reactions: No Reported Reaction Past Psychological History: Anxiety, Depression Smoking Status: Current every day smoker Past Alcohol Use History: Rare Additional Past Alcohol Use History / Comment(s): SMOKES 1.5-2 PPD Past Drug Use History: None Reported - Past Family History Father Family Medical History: Cancer, Myocardial Infarction ([place]), Osteoarthritis (OA) Additional Family Medical History / Comment(s): WAS AN ALCOHOLIC/FELL DOWN FLIGHT OF STEPS HAD SKULL FX, LUNG CA Mother Family Medical History: COPD, Osteoarthritis (OA) Additional Family Medical History / Comment(s): GLAUCOMA Medications and Allergies Home Medications Medication Instructions Recorded Confirmed Type Albuterol Nebulized [Ventolin 2.5 mg INHALATION RT-QID PRN 06/17/16 12/01/17 History Nebulized] Albuterol Sulfate [Proair 1 puff INHALATION RT-QID PRN 04/22/17 12/01/17 History Respiclick] Omeprazole 40 mg PO DAILY PRN 12/01/17 12/01/17 History Otc Sleep Aide 1 tab PO HS 12/01/17 12/01/17 History Allergies Allergy/AdvReac Type Severity Reaction Status Date / Time latex Allergy Rash/Hives Verified 12/01/17 22:51 sulfamethoxazole Allergy Rash/Hives Verified 12/01/17 22:51 [From Bactrim] trimethoprim [From Bactrim] Allergy Rash/Hives Verified 12/01/17 22:51 Physical Exam Vitals: Vital Signs Temp Pulse Pulse Resp BP BP Pulse Ox 12/02/17 08:48 98.0 F 60 18 108/62 95 12/02/17 05:42 97.9 F 57 L 16 98/56 97 12/02/17 02:33 57 L 16 12/02/17 02:00 98.1 F 57 L 16 134/67 100 12/02/17 01:40 57 L 18 124/80 98 12/02/17 00:20 62 16 112/66 96 12/01/17 23:20 70 16 130/79 97 12/01/17 22:20 97.8 F 62 18 187/103 99 Intake and Output 12/01/17 12/02/17 12/02/17 22:59 06:59 14:59 Other: Voiding Method Toilet # Voids 2 Weight 64.864 kg 64.864 kg Blood pressure 108/62, heart rate 60, afebrile. GENERAL: This is a 62-year-old female in no apparent distress at the time of my examination. Appears older than stated age. HEENT: Head is atraumatic, normocephalic. Pupils are equal, round. Sclerae anicteric. Conjunctivae are clear. Mucous membranes of the mouth are moist. Neck is supple. There is no jugular venous distention. No carotid bruit is heard. LUNGS: Clear to auscultation no wheezes, rales or rhonchi. No chest wall tenderness is noted on palpation or with deep breathing. HEART: Regular rate and rhythm without murmurs, rubs or gallops. S1 and S2 heard. ABDOMEN: Soft, nontender. Bowel sounds are heard. No organomegaly noted. EXTREMITIES: 2+ peripheral pulses with no evidence of peripheral edema and no calf tenderness noted. NEUROLOGIC: Patient is awake, alert and oriented x3. Results 12/01/17 22:36 12/01/17 22:36 Cardiac Enzymes 12/01/17 12/01/17 12/02/17 Range/Units 22:36 22:36 04:21 AST 15 (14-36) U/L CK-MB (CK-2) 0.7 0.5 (0.0-2.4) ng/mL Troponin I <0.012 <0.012 (0.000-0.034) ng/mL Coagulation 12/01/17 12/02/17 Range/Units 22:36 08:07 PT 10.2 (9.0-12.0) sec APTT 24.5 32.3 H (22.0-30.0) sec CBC 12/01/17 Range/Units 22:36 WBC 7.6 (3.8-10.6) k/uL RBC 4.02 (3.80-5.40) m/uL Hgb 12.7 (11.4-16.0) gm/dL Hct 40.9 (34.0-46.0) % Plt Count 255 (150-450) k/uL Comprehensive Metabolic Panel 12/01/17 Range/Units 22:36 Sodium 138 (137-145) mmol/L Potassium 3.7 (3.5-5.1) mmol/L Chloride 100 (98-107) mmol/L Carbon Dioxide 28 (22-30) mmol/L BUN 16 (7-17) mg/dL Creatinine 0.70 (0.52-1.04) mg/dL Glucose 104 H (74-99) mg/dL Calcium 9.4 (8.4-10.2) mg/dL AST 15 (14-36) U/L ALT 25 (9-52) U/L Alkaline Phosphatase 84 (38-126) U/L Total Protein 6.8 (6.3-8.2) g/dL Albumin 4.1 (3.5-5.0) g/dL Current Medications Generic Name Dose Route Start Last Admin Trade Name Freq PRN Reason Stop Dose Admin Acetaminophen 650 mg 12/02/17 01:02 Tylenol Tab PO Q6HR PRN Mild Pain or Fever > 100.5 Heparin Sodium (Porcine) 0 unit 12/02/17 01:01 Heparin IV PER PROTOCOL PRN Low PTT Protocol Hydromorphone HCl 0.5 mg 12/02/17 01:02 Dilaudid IVP Q3HR PRN Moderate Pain Heparin Sodium/Sodium Chloride 500 mls @ 15.56 mls/hr 12/02/17 01:15 01:39 25,000 unit/ Sodium Chloride IV 12 units/kg/hr .Q24H VENECIA 15.56 mls/hr Protocol Administration 12 UNITS/KG/HR Sodium Chloride 1,000 mls @ 75 mls/hr 12/02/17 01:15 12/02/17 01:37 Saline 0.9% IV 75 mls/hr .[id number] VENECIA Administration Miscellaneous Information 1 each 12/02/17 08:19 Rx Info: Iv Contrast Was Given MISCELLANE 12/04/17 08:19 DAILY PRN Per Protocol Naloxone HCl 0.2 mg 12/02/17 01:02 Narcan IV Q2M PRN Opioid Reversal Ondansetron HCl 4 mg 12/02/17 01:02 Zofran IVP Q8HR PRN Nausea And Vomiting Intake and Output 12/01/17 12/02/17 12/02/17 22:59 06:59 14:59 Other: Voiding Method Toilet # Voids 2 Weight 64.864 kg 64.864 kg 12/01/17 22:36 12/01/17 22:36 Assessment and Plan Assessment: ASSESSMENT 1. Chest pain with radiation into back, neck and jaw with EKG abnormalities. 2. Chronic tobacco abuse PLAN Obtain 2D echocardiogram and doppler study to assess cardiac structure and function. Obtain CT to evaluate for possible aortic dissection. Continue to obtain third set of cardiac enzymes, if CT and labs are normal we will proceed with dobutamine stress echo. Check lipid panel. Smoking cessation discussed and highly recommended. Nurse Practitioner note has been reviewed, I agree with a documented findings and plan of care. Patient was seen and examined.
[2017-12-02 10:47] LABS: Creatine Kinase 25 U/L (30-135)
--- NOTE | 2017-12-02 10:50 | CT ---
EXAMINATION TYPE: CT angio thoracic/abd aorta DATE OF EXAM: 12/02/2017 COMPARISON: NONE HISTORY: Aneurysm\dissection. Chest and back pain. CONTRAST: CTA thoracic and abdominal aorta with 3-D reconstruction is performed without Oral Contrast and with IV Contrast, patient injected with Omni 350/100 mgI/ml. Contrast CTA of the thoracic and abdominal aorta was performed from the lung apex through the base of the pelvis. 3-D reconstruction imaging obtained at a separate workstation. CT Chest: THORACIC AORTA: There is no evidence for aneurysm. Ascending thoracic aorta is ectatic and measures 3.8 cm in AP dimension. No dissection or mediastinal hematoma. Mild atheromatous changes are seen. LUNGS: The lungs are clear and free of infiltrate or atelectasis. No pulmonary nodule or mass is det ected. No pleural effusion or CT evidence of interstitial lung disease. MEDIASTINUM: The heart is not enlarged. No evidence for mediastinal mass or adenopathy. HILAR STRUCTURES: No evidence for mass. No hilar adenopathy is appreciated. OTHER: No significant abnormality. CONTRAST CT ABDOMEN AND PELVIS ABDOMINAL AORTA: No evidence for abdominal aortic aneurysm. No dissection. Iliac vessels are symmet sherly and patent. Mild scattered atheromatous change detected. LIVER/GB- No significant abnormality is seen. PANCREAS- No significant abnormality is seen. SPLEEN- No significant abnormality is seen. ADRENALS- No significant abnormality is seen. KIDNEYS/BLADDER- No significant abnormality is seen. BOWEL- No Significant abnormality GENITAL ORGANS: No gross abnormality seen. LYMPH NODES- No greater than 1cm abdominal or pelvic lymph nodes are appreciated. OSSEOUS STRUCTURES- No significant abnormality is seen. OTHER- No significant abnormality is seen. IMPRESSION- 1. No evidence for abdominal aortic aneurysm or dissection. Scattered atheromatous changes seen.
[2017-12-02 10:54] LABS: Cholesterol 202 mg/dL (<200); HDL Cholesterol 42 mg/dL (40-60); LDL Cholesterol,Calculated 145 mg/dL (0-99); Triglycerides 73 mg/dL (<150)
[2017-12-02 11:00] LABS: Creatine Kinase MB 0.5 ng/mL (0.0-2.4); Troponin I <0.012 ng/mL (0.000-0.034)
[2017-12-02] MEDS ORDERED: DOBUTamine DRIP for NUC MED 500 MG in DEXTROSE/WATER 1 250ML.BAG IV ONE (11:32)
--- NOTE | 2017-12-02 13:19 | ECHOF ---
Referral Reason: MEASUREMENTS -------- HEIGHT: 172.7 cm WEIGHT: 64.9 kg BP: 98/56 IVSd: 1.1 cm (0.6 - 1.1) LVIDd: 4.1 cm (3.9 - 5.3) LVPWd: 1.2 cm (0.6 - 1.1) IVSs: 1.6 cm LVIDs: 2.8 cm LVPWs: 1.1 cm Ao Diam: 3.2 cm (2.0 - 3.7) AV Cusp: 2.1 cm (1.5 - 2.6) LA Diam: 3.4 cm (2.7 - 3.8) MV EXCURSION: 18.829 mm (> 18.000) MV EF SLOPE: 177 mm/s (70 - 150) EPSS: 0.4 cm MV E Michael: 0.96 m/s MV DecT: 202 ms MV A Michael: 0.72 m/s MV E/A Ratio: 1.33 AR PHT: 439 ms RAP: 15.00 mmHg RVSP: 22.32 mmHg FINDINGS -------- Resting bradycardia (HR<60bpm). This was a technically good study. The left ventricular size is normal. There is borderline concentric left ventricular hypertrophy. Overall left ventricular systolic function is normal with, an EF between 55 - 60 %. The right ventricle is normal in size and function. The left atrium is normal in size. The right atrium is normal in size. Aortic valve is trileaflet and is mildly thickened. There is mild aortic regurgitation. The mitral valve leaflets are mildly thickened. Mild mitral annular calcification present. There is trace mitral regurgitation. Trace tricuspid regurgitation present. The right ventricular systolic pressure, as measured by Dopp ler, is 22.32mmHg. Pulmonic valve appears structurally normal. The aortic root size is normal. The inferior vena cava is mildly dilated. The pericardium is normal. CONCLUSIONS -------- 1. Resting bradycardia (HR<60bpm). 2. This was a technically good study. 3. The left ventricular size is normal. 4. There is borderline concentric left ventricular hypertrophy. 5. Overall left ventricular systolic function is normal with, an EF between 55 - 60 %. 6. The right ventricle is normal in size and function. 7. The left atrium is normal in size. 8. The right atrium is normal in size. 9. Aortic valve is trileaflet and is mildly thickened. 10. There is mild aortic regurgitation. 11. The mitral valve leaflets are mildly thickened. 12. Mild mitral annular calcification present. 13. There is trace mitral regurgitation. 14. Trace tricuspid regurgitation present. 15. The right ventricular systolic pressure, as measured by Doppler, is 22.32mmHg. 16. Pulmonic valve appears structurally normal. 17. The aortic root size is normal. 18. The inferior vena cava is mildly dilated. 19. The pericardium is normal. OFFICE MACHINE SERVICER APPRENTICE: Doreen Slater RDCS
--- NOTE | 2017-12-02 14:13 | ECHOS ---
STRESS ECHOCARDIOGRAM INDICATIONS: Chest pain. BASELINE HEART RATE: 55. BASELINE BLOOD PRESSURE: 113/70 MAXIMUM HEART RATE: 135 MAXIMUM BLOOD PRESSURE: 140/61 85% MPHR: 134 100% MPHR: 158 MAXIMUM STAGE REACHED: 3 TOTAL EXERCISE TIME: 6:15 CLINICAL INFORMATION: Dobutamine stress echo. Baseline heart rate 55 beats per minute. Baseline blood pressure 113/70 mmHg. Baseline 12-lead ECG showed normal sinus rhythm with normal cardiac intervals. Patient received dobutamine infusion per protocol. There was excellent augmentation of overall LV contractility without developing any wall motion abnormalities. At recovery, regional global LV systolic function remained normal. There was no ECG evidence for ischemia. No arrhythmias in response to dobutamine. IMPRESSION: Normal dobutamine stress echo. MMODL / IJN: [id number] /
--- NOTE | 2017-12-02 16:10 | P.HPIM ---
History of Present Illness H&P Date: 12/02/17 Chief Complaint: Chest pain Agent is a 62-year-old female with a known history of COPD GERD osteoarthritis, hx of spontaneous pneumothorax 2, diet-controlled diabetes mellitus and uterine cancer came to the hospital with complaints of chest pain, midsternal radiating to the back and to the neck was started night before admission. Patient does have history of severe GERD and does take PPI which relieves her symptoms usually but her symptoms did not relieve with PPI which made her come to the hospital. Pale last about 20 minutes and subsided after that. She denied any associated nausea vomiting dizziness lightheadedness or diaphoresis. Patient has been actively working and denied any exertional short of breath. Patient does smoke extensively on a daily basis. EKG showed sinus rhythm with ST depression in the inferior leads Chest x-ray showed no acute cardio pulmonary process D-dimer negative CT of the chest showed no evidence of prior to dissection Troponin 1 negative. Cardiology was consulted for further evaluation. Review of Systems Constitutional: Patient denies any fever or chills . No generalized weakness or weight loss. Abdomen: Patient denied nausea vomiting and diarrhea and abdominal pain. Cardiovascular: Patient denies any chest pain or short of breath no palpitations. Respiratory: patient denied any cough is from production. No shortness of breath Neurologic: Patient denied any numbness or tingling headache. Musculoskeletal: Patient denies any complaints of joint swelling or deformity. Skin: Negative Psychiatric: Negative Endocrine: No heat or cold intolerance. No recent weight gain. Genitourinary: No dysuria or hematuria. All other 14 point ROS negative except the above Past Medical History Past Medical History: Cancer, COPD, GERD/Reflux, Osteoarthritis (OA) Additional Past Medical History / Comment(s): uterine cancer, MIGRAINES, SPONTANEOUS PNEUMOTHORAX X2, IRREG RYTHYM, BEGINNING OF MAC DEGENERATION,DIET CONTROLLED DIABETIC DOESNT CHECK BS OR TAKE ANY MEDS History of Any Multi-Drug Resistant Organisms: None Reported Past Surgical History: Appendectomy, Bladder Surgery, Section, Hysterectomy, Uterine Ablation Additional Past Surgical History / Comment(s): spontaneous pneumothorax X2/ CHEST TUBE WITH FIRST ONE, COLONOSCOPY POLYPECTOMY-BENIGN/EGD, RTWRIST GANGLION CYST REMOVED. Past Anesthesia/Blood Transfusion Reactions: No Reported Reaction Past Psychological History: Anxiety, Depression Smoking Status: Current every day smoker Past Alcohol Use History: Rare Additional Past Alcohol Use History / Comment(s): SMOKES 1.5-2 PPD Past Drug Use History: None Reported - Past Family History Father Family Medical History: Cancer, Myocardial Infarction ([place]), Osteoarthritis (OA) Additional Family Medical History / Comment(s): WAS AN ALCOHOLIC/FELL DOWN FLIGHT OF STEPS HAD SKULL FX, LUNG CA Mother Family Medical History: COPD, Osteoarthritis (OA) Additional Family Medical History / Comment(s): GLAUCOMA Medications and Allergies Home Medications Medication Instructions Recorded Confirmed Type Albuterol Nebulized [Ventolin 2.5 mg INHALATION RT-QID PRN 06/17/16 12/01/17 History Nebulized] Albuterol Sulfate [Proair 1 puff INHALATION RT-QID PRN 04/22/17 12/01/17 History Respiclick] Omeprazole 40 mg PO DAILY PRN 12/01/17 12/01/17 History Otc Sleep Aide 1 tab PO HS 12/01/17 12/01/17 History Allergies Allergy/AdvReac Type Severity Reaction Status Date / Time latex Allergy Rash/Hives Verified 12/01/17 22:51 sulfamethoxazole Allergy Rash/Hives Verified 12/01/17 22:51 [From Bactrim] trimethoprim [From Bactrim] Allergy Rash/Hives Verified 12/01/17 22:51 Physical Exam Vitals: Vital Signs Temp Pulse Pulse Resp BP BP BP 12/02/17 15:43 97.8 F 63 18 106/57 12/02/17 11:46 98.0 F 52 L 18 109/64 12/02/17 08:48 98.0 F 60 18 108/62 12/02/17 05:42 97.9 F 57 L 16 98/56 12/02/17 02:33 57 L 16 12/02/17 02:00 98.1 F 57 L 16 134/67 12/02/17 01:40 57 L 18 124/80 12/02/17 00:20 62 16 112/66 12/01/17 23:20 70 16 130/79 12/01/17 22:20 97.8 F 62 18 187/103 Pulse Ox 12/02/17 15:43 98 12/02/17 11:46 96 12/02/17 08:48 95 12/02/17 05:42 97 12/02/17 02:33 12/02/17 02:00 100 12/02/17 01:40 98 12/02/17 00:20 96 12/01/17 23:20 97 12/01/17 22:20 99 Intake and Output 12/02/17 12/02/17 12/02/17 06:59 14:59 22:59 Intake Total 300 Balance 300 Intake: Oral 300 Other: Voiding Method Toilet # Voids 2 Weight 64.864 kg PHYSICAL EXAMINATION: Patient is lying in the bed comfortably, no acute distress, awake alert and oriented.. HEENT: Normocephalic. Neck is supple. Pupils reactive. Nostrils clear. Oral cavity is moist. Ears reveal no drainage. Neck reveals no JVD, carotid bruits, or thyromegaly. CHEST EXAMINATION: Trachea is central. Symmetrical expansion. Lung lehman clear to auscultation and percussion. CARDIAC: Normal S1, S2 with no gallops. No murmurs ABDOMEN: Soft. Bowel sounds normal. No organomegaly. No abdominal bruits. Extremities: reveal no edema. No clubbing or cyanosis Neurologically awake, alert, oriented x3 with well-coordinated movements. No focal deficits noted Skin: No rash or skin lesions. Psychiatric: Coperative. Nonsuicidal Musculoskeletal: No joint swelling or deformity. Normal range of motion. Results CBC & Chem 7: 12/01/17 22:36 12/01/17 22:36 Labs: Abnormal Lab Results - Last 24 Hours (Table) 12/01/17 12/01/17 12/02/17 Range/Units 22:36 22:36 04:21 MCV 101.8 H (80.0-100.0) fL APTT (22.0-30.0) sec Glucose 104 H (74-99) mg/dL Total Creatine Kinase 25 L (30-135) U/L Cholesterol (<200) mg/dL LDL Cholesterol, Calc (0-99) mg/dL 12/02/17 12/02/17 12/02/17 Range/Units 04:21 08:07 10:03 MCV (80.0-100.0) fL APTT 32.3 H (22.0-30.0) sec Glucose (74-99) mg/dL Total Creatine Kinase 25 L (30-135) U/L Cholesterol 202 H (<200) mg/dL LDL Cholesterol, Calc 145 H (0-99) mg/dL Thrombosis Risk Factor Assmnt - DVT/VTE Prophylaxis DVT/VTE Prophylaxis: Pharmacologic Prophylaxis ordered - Choose All That Apply Each Risk Factor Represents 2 Points: Age 61-74 years, Malignancy Thrombosis Risk Factor Assessment Total Risk Factor Score: 4 Thrombosis Risk Factor Assessment Level: Moderate Risk Assessment and Plan Assessment: Chest pain radiating to the back and neck. Possible unstable angina. Rule out acute coronary syndrome. Rule out a dissection Nicotine addiction Anxiety Severe GERD with history of EGD 10 years ago History of spontaneous pneumothorax 2 Hx of abnormal stress test Hyperlipidemia with LDL 145 DVT prophylaxis Plan: Patient will be continued on telemetry monitoring. Serial troponins are negative. Patient did have abnormal stress test previously and was recommended stress echo at the time. Patient was seen by cardiology and patient to did have a stress echo today. We will follow up on the report. Further recommendations based on the clinical course. Time with Patient: Greater than 30
[2017-12-03 22:53] VITALS: BP 106/57; BMI 21.7
[2017-12-03 22:58] VITALS: PULSE 63
--- NOTE | 2018-01-08 12:14 | P.DS ---
Providers Date of admission: 12/02/17 01:06 Expected date of discharge: 12/02/17 Attending physician: Patricia Reed Consults: 12/02/17 01:03 Consult Physician Urgent Consulting Provider: Quincy Lawson Consult Reason/Comments: Unstable angina Do you want consulting provider notified?: Yes, Notify in am Primary care physician: [facility] Course: Discharge diagnosis Chest pain radiating to the back and neck. Possible unstable angina. Ruled out acute coronary syndrome. Negative dobutamine stress echo. Ruled out a dissection by CT thorax Nicotine addiction Anxiety Severe GERD with history of EGD 10 years ago History of spontaneous pneumothorax 2 Hx of abnormal stress test Hyperlipidemia with LDL 145 DVT prophylaxis Hospital course Pt. is a 62-year-old female with a known history of COPD GERD osteoarthritis, hx of spontaneous pneumothorax 2, diet-controlled diabetes mellitus and uterine cancer came to the hospital with complaints of chest pain, midsternal radiating to the back and to the neck was started night before admission. Patient does have history of severe GERD and does take PPI which relieves her symptoms usually but her symptoms did not relieve with PPI which made her come to the hospital. Pale last about 20 minutes and subsided after that. She denied any associated nausea vomiting dizziness lightheadedness or diaphoresis. Patient has been actively working and denied any exertional short of breath. Patient does smoke extensively on a daily basis. EKG showed sinus rhythm with ST depression in the inferior leads Chest x-ray showed no acute cardio pulmonary process D-dimer negative CT of the chest showed no evidence of prior to dissection Troponin 1 negative. Cardiology was consulted for further evaluation. Patient was continued on telemetry monitoring. Serial troponins are negative. Patient did have abnormal stress test previously and was recommended stress echo at the time. Patient was seen by cardiology and patient to did have a stress echo today. Patient underwent dobutamine stress echo which is negative. Patient is cleared for discharge home. Chest pain did improve with pain medications and recommended/counseled smoking cessation. Discharge physical examination was done and vitals reviewed. Patient Condition at Discharge: Stable Plan - Discharge Summary New Discharge Prescriptions: Continue Albuterol Nebulized [Ventolin Nebulized] 2.5 mg INHALATION RT-QID PRN PRN Reason: Shortness Of Breath Albuterol Sulfate [Proair Respiclick] 1 puff INHALATION RT-QID PRN PRN Reason: Shortness Of Breath Omeprazole 40 mg PO DAILY PRN PRN Reason: GERD Otc Sleep Aide 1 tab PO HS Discharge Medication List Albuterol Nebulized [Ventolin Nebulized] 2.5 mg INHALATION RT-QID PRN 06/17/16 [ History] Albuterol Sulfate [Proair Respiclick] 1 puff INHALATION RT-QID PRN 04/22/17 [ History] Omeprazole 40 mg PO DAILY PRN 12/01/17 [History] Otc Sleep Aide 1 tab PO HS 12/01/17 [History] Follow up Appointment(s)/Referral(s): Helen Becker MD [STAFF PHYSICIAN] - 2 Weeks Butch Ramos DO [Primary Care Provider] - 1-2 days Patient Instructions/Handouts: Chest Pain (GEN) Discharge Disposition: HOME SELF-CARE
== END 2017-12-02 16:53 | disposition home or self-care (01) ==
LOC: EC 22:18 → 3OBS 12-02 01:06
PROVIDERS: ADMIT Hospitalist; ATTEND Hospitalist
DX: R07.89 Other chest pain (principal); R94.31 Abnormal electrocardiogram [ECG] [EKG]; R94.39 Abnormal result of other cardiovascular function study; K21.9 Gastro-esophageal reflux disease without esophagitis; E78.5 Hyperlipidemia, unspecified; J44.9 Chronic obstructive pulmonary disease, unspecified; M19.90 Unspecified osteoarthritis, unspecified site; F41.9 Anxiety disorder, unspecified; F17.200 Nicotine dependence, unspecified, uncomplicated; Z88.1 Allergy status to other antibiotic agents; Z91.040 Latex allergy status; Z85.42 Personal history of malignant neoplasm of other parts of uterus; Z82.49 Family history of ischemic heart disease and other diseases of the circulatory system; Z80.1 Family history of malignant neoplasm of trachea, bronchus and lung
CPT/HCPCS: 96376 ×2; 96374; 99291; 36415 ×2; 93005; 93017; 93306; 93350; 85379; 83880; 80061; 80053; 84443; 82550 ×2; 82553 ×2; 83690; 83735; 84484 ×2; 85025; 85610; 85730 ×2; 82272; 71046; 75635; 71275; G0378; J1250; J1644 ×2; Q9967

== ENCOUNTER 2018-03-15 13:05 | Emergency (ER) | payer OTHER ==
[2018-03-15] MEDS ORDERED: SODIUM CHLORIDE 0.9% 500 ML IV STA (13:36)
[2018-03-15] MEDS ORDERED: SODIUM CHLORIDE 0.9% 1,000 ML IV STA (13:36)
--- NOTE | 2018-03-15 13:40 | ED ---
Nausea/Vomiting/Diarrhea HPI - General Chief complaint: Nausea/Vomiting/Diarrhea Stated complaint: diarrhea Time Seen by Provider: 03/15/18 13:20 Source: patient, RN notes reviewed Mode of arrival: ambulatory Limitations: no limitations - History of Present Illness Initial comments: This is a 62-year-old female history of uterine cancer status post hysterectomy indicated 36 history of appendectomy also history of 3 polyps removed about 10- 12 years ago one of which was supposedly precancerous who presents with complaints of watery mucus-like diarrhea with blood in it. She states was bright red blood today. She's been having chronic sweats he believes its secondary to her was nonpulsatile state. Just this time and cold flashes she has a sore throat cough earaches dysuria she states she didn't try to drink enough water because the diarrhea she does have intermittent crampy abdominal pain at this time. No history of colitis/ Crohn's Disease or ulcerative colitis in the family are with her. Patient does state that she was on antibiotics about 5 weeks ago for a respiratory infection. No other contributing factors. MD complaint: diarrhea, abdominal pain - Related Data Home Medications Medication Instructions Recorded Confirmed Albuterol Nebulized [Ventolin 2.5 mg INHALATION RT-QID PRN 06/17/12/01/17 Nebulized] Albuterol Sulfate [Proair 1 puff INHALATION RT-QID PRN 04/22/17 12/01/17 Respiclick] Omeprazole 40 mg PO DAILY PRN 12/01/17 12/01/17 Otc Sleep Aide 1 tab PO HS 12/01/17 12/01/17 Previous Rx's Medication Instructions Recorded Dicyclomine [Bentyl] 10 mg PO TID #10 capsule 03/15/18 Hydrocortisone Suppository 25 mg RECTAL BID #10 supp 03/15/18 [Anusol-Hc] Allergies Allergy/AdvReac Type Severity Reaction Status Date / Time latex Allergy Rash/Hives Verified 03/15/18 13:23 sulfamethoxazole Allergy Rash/Hives Verified 03/15/18 13:23 [From Bactrim] trimethoprim [From Bactrim] Allergy Rash/Hives Verified 03/15/18 13:23 Review of Systems ROS Statement: Those systems with pertinent positive or pertinent negative responses have been documented in the HPI. ROS Other: All systems not noted in ROS Statement are negative. Past Medical History Past Medical History: Cancer, COPD, GERD/Reflux, Osteoarthritis (OA) Additional Past Medical History / Comment(s): uterine cancer, MIGRAINES, SPONTANEOUS PNEUMOTHORAX X2, IRREG RYTHYM, BEGINNING OF MAC DEGENERATION,DIET CONTROLLED DIABETIC DOESNT CHECK BS OR TAKE ANY MEDS History of Any Multi-Drug Resistant Organisms: None Reported Past Surgical History: Appendectomy, Bladder Surgery, Section, Hysterectomy, Uterine Ablation Additional Past Surgical History / Comment(s): spontaneous pneumothorax X2/ CHEST TUBE WITH FIRST ONE, COLONOSCOPY POLYPECTOMY-BENIGN/EGD, RTWRIST GANGLION CYST REMOVED. Past Anesthesia/Blood Transfusion Reactions: No Reported Reaction Past Psychological History: Anxiety, Depression Smoking Status: Current every day smoker Past Alcohol Use History: Rare Past Drug Use History: None Reported - Past Family History Father Family Medical History: Cancer, Myocardial Infarction ([place]), Osteoarthritis (OA) Additional Family Medical History / Comment(s): WAS AN ALCOHOLIC/FELL DOWN FLIGHT OF STEPS HAD SKULL FX, LUNG CA Mother Family Medical History: COPD, Osteoarthritis (OA) Additional Family Medical History / Comment(s): GLAUCOMA General Exam - General Exam Comments Initial Comments: This is a well-developed well-nourished awake alert oriented 3 female Limitations: no limitations General appearance: alert, in no apparent distress Head exam: Present: atraumatic, normocephalic, normal inspection Eye exam: Present: normal appearance, PERRL, EOMI. Absent: scleral icterus, conjunctival injection, periorbital swelling ENT exam: Present: normal exam, mucous membranes moist Neck exam: Present: normal inspection. Absent: tenderness, meningismus, lymphadenopathy Respiratory exam: Present: normal lung sounds bilaterally. Absent: respiratory distress, wheezes, rales, rhonchi, stridor Cardiovascular Exam: Present: regular rate, normal rhythm, normal heart sounds. Absent: systolic murmur, diastolic murmur, rubs, gallop, clicks GI/Abdominal exam: Present: soft, normal bowel sounds. Absent: distended, tenderness, guarding, rebound, rigid Extremities exam: Present: normal inspection, full ROM, normal capillary refill. Absent: tenderness, pedal edema, joint swelling, calf tenderness Back exam: Present: normal inspection Neurological exam: Present: alert, oriented X3, CN II-XII intact Psychiatric exam: Present: normal affect, normal mood Skin exam: Present: warm, dry, intact, normal color. Absent: rash Course Vital Signs 03/15/18 13:21 Temperature 98.6 F Pulse Rate 74 Respiratory 20 Rate Blood Pressure 123/85 O2 Sat by Pulse 99 Oximetry - Reevaluation(s) Reevaluation #1: 03/15/18 15:10 The patient and no further symptoms: The emergency department initially. I did do a rectal exam with Dr. Peters my nurse present. There is evidence of a fissure at the 6 o'clock position as well as an internal hemorrhoid in the proximity. No active bleeding at this time. After the scan patient complains some mid epigastric lower sternal pain and she states radiates to the right side of her neck and his rate into her back she states she did have frequent episodes of this recently. Reevaluation #2: 03/15/18 15:15 Further information the patient has had this type of discomfort in her chest for years she's had cardiac catheterizations which were normal as well as normal stress test. She is a smoker we did discuss the risks of smoking and the benefits of smoking cessation this conversation lasted 3.1 minutes. He does smoke cigarettes. Medical Decision Making - Medical Decision Making The patient is feeling improved at this time she will be discharged she has had cardiac workup in the past at this time to be for referred back to her doctor for scheduling a colonoscopy. The current presentation is consistent with a anal fissure as well as internal hemorrhoid and enteritis. 3 place on appropriate medication she is a follow-up with her doctor return when necessary - Lab Data Result diagrams: 03/15/18 13:40 03/15/18 13:40 Lab Results 03/15/18 03/15/18 03/15/18 Range/Units 13:40 13:40 13:40 WBC 7.1 (3.8-10.6) k/uL RBC 4.31 (3.80-5.40) m/uL Hgb 13.4 (11.4-16.0) gm/dL Hct 40.5 (34.0-46.0) % MCV 93.8 (80.0-100.0) fL MCH 31.1 (25.0-35.0) pg MCHC 33.1 (31.0-37.0) g/dL RDW 13.4 (11.5-15.5) % Plt Count 298 (150-450) k/uL Neutrophils % 63 % Lymphocytes % 30 % Monocytes % 3 % Eosinophils % 3 % Basophils % 1 % Neutrophils # 4.5 (1.3-7.7) k/uL Lymphocytes # 2.1 (1.0-4.8) k/uL Monocytes # 0.2 (0-1.0) k/uL Eosinophils # 0.2 (0-0.7) k/uL Basophils # 0.0 (0-0.2) k/uL PT 9.7 (9.0-12.0) sec INR 1.0 (<1.2) APTT 22.8 (22.0-30.0) sec Sodium 141 (137-145) mmol/L Potassium 4.1 (3.5-5.1) mmol/L Chloride 104 (98-107) mmol/L Carbon Dioxide 26 (22-30) mmol/L Anion Gap 11 mmol/L BUN 17 (7-17) mg/dL Creatinine 0.60 (0.52-1.04) mg/dL Est GFR (CKD-EPI)AfAm >90 (>60 ml/min/1.73 sqM) Est GFR (CKD-EPI)NonAf >90 (>60 ml/min/1.73 sqM) Glucose 99 (74-99) mg/dL Calcium 9.1 (8.4-10.2) mg/dL Magnesium 2.1 (1.6-2.3) mg/dL Total Bilirubin 0.2 (0.2-1.3) mg/dL AST 19 (14-36) U/L ALT 20 (9-52) U/L Alkaline Phosphatase 87 (38-126) U/L Total Creatine Kinase (30-135) U/L CK-MB (CK-2) (0.0-2.4) ng/mL CK-MB (CK-2) Rel Index Troponin I (0.000-0.034) ng/mL Total Protein 6.7 (6.3-8.2) g/dL Albumin 3.8 (3.5-5.0) g/dL Amylase 48 (30-110) U/L Lipase 51 (23-300) U/L Stool Occult Blood (Negative) 03/15/18 03/15/18 Range/Units 13:40 13:40 WBC (3.8-10.6) k/uL RBC (3.80-5.40) m/uL Hgb (11.4-16.0) gm/dL Hct (34.0-46.0) % MCV (80.0-100.0) fL MCH (25.0-35.0) pg MCHC (31.0-37.0) g/dL RDW (11.5-15.5) % Plt Count (150-450) k/uL Neutrophils % % Lymphocytes % % Monocytes % % Eosinophils % % Basophils % % Neutrophils # (1.3-7.7) k/uL Lymphocytes # (1.0-4.8) k/uL Monocytes # (0-1.0) k/uL Eosinophils # (0-0.7) k/uL Basophils # (0-0.2) k/uL PT (9.0-12.0) sec INR (<1.2) APTT (22.0-30.0) sec Sodium (137-145) mmol/L Potassium (3.5-5.1) mmol/L Chloride (98-107) mmol/L Carbon Dioxide (22-30) mmol/L Anion Gap mmol/L BUN (7-17) mg/dL Creatinine (0.52-1.04) mg/dL Est GFR (CKD-EPI)AfAm (>60 ml/min/1.73 sqM) Est GFR (CKD-EPI)NonAf (>60 ml/min/1.73 sqM) Glucose (74-99) mg/dL Calcium (8.4-10.2) mg/dL Magnesium (1.6-2.3) mg/dL Total Bilirubin (0.2-1.3) mg/dL AST (14-36) U/L ALT (9-52) U/L Alkaline Phosphatase (38-126) U/L Total Creatine Kinase <20 L (30-135) U/L CK-MB (CK-2) <0.2 (0.0-2.4) ng/mL CK-MB (CK-2) Rel Index Troponin I <0.012 (0.000-0.034) ng/mL Total Protein (6.3-8.2) g/dL Albumin (3.5-5.0) g/dL Amylase (30-110) U/L Lipase (23-300) U/L Stool Occult Blood Negative (Negative) - EKG Data -: EKG Interpreted by Me EKG shows normal: sinus rhythm, axis, intervals, QRS complexes, ST-T waves (EKG shows normal sinus rhythm a 63 CT interval 126 QRS 8 QT since QTC 3426/435 this is a normal-appearing EKG. This was done during the episode chest pain ) Rate: normal Disposition Clinical Impression: Enteritis, Anal fissure, Internal hemorrhoid Disposition: HOME SELF-CARE Instructions: Hemorrhoids (ED), Rectal Bleeding (ED), Anal Fissure (ED), Acute Diarrhea (ED), Enteritis (ED) Prescriptions: Dicyclomine [Bentyl] 10 mg PO TID #10 capsule Hydrocortisone Suppository [Anusol-Hc] 25 mg RECTAL BID #10 supp Referrals: Butch Ramos DO [Primary Care Provider] - 1-2 days
[2018-03-15 13:58] LABS: Basophils % (A) 1 %; Eosinophils # (A) 0.2 k/uL (0-0.7); Eosinophils % (A) 3 %; HCT 40.5 % (34.0-46.0); HGB 13.4 gm/dL (11.4-16.0); Lymphocytes # (A) 2.1 k/uL (1.0-4.8); Lymphocytes % (A) 30 %; MCH 31.1 pg (25.0-35.0); MCHC 33.1 g/dL (31.0-37.0); MCV 93.8 fL (80.0-100.0); Monocytes # (A) 0.2 k/uL (0-1.0); Monocytes % (A) 3 %; Neutrophils # (A) 4.5 k/uL (1.3-7.7); Neutrophils % (A) 63 %; Platelet Count 298 k/uL (150-450); RBC 4.31 m/uL (3.80-5.40); RDW 13.4 % (11.5-15.5); WBC 7.1 k/uL (3.8-10.6)
[2018-03-15 14:06] LABS: ALT 20 U/L (9-52); AST 19 U/L (14-36); Albumin 3.8 g/dL (3.5-5.0); Alkaline Phosphatase 87 U/L (38-126); Amylase 48 U/L (30-110); Anion Gap 11 mmol/L; Blood Urea Nitrogen 17 mg/dL (7-17); Calcium 9.1 mg/dL (8.4-10.2); Carbon Dioxide 26 mmol/L (22-30); Chloride 104 mmol/L (98-107); Glucose 99 mg/dL (74-99); Lipase 51 U/L (23-300); Magnesium 2.1 mg/dL (1.6-2.3); Potassium 4.1 mmol/L (3.5-5.1); Sodium 141 mmol/L (137-145); Total Bilirubin 0.2 mg/dL (0.2-1.3); Total Protein 6.7 g/dL (6.3-8.2)
[2018-03-15 14:13] LABS: Partial Thromboplastin Time 22.8 sec (22.0-30.0); Prothrombin Time 9.7 sec (9.0-12.0)
--- NOTE | 2018-03-15 14:16 | XR ---
EXAMINATION TYPE: XR KUB , 2 VIEWS DATE OF EXAM ORDERED: 03/15/2018 HISTORY: pain. COMPARISON: None. FINDINGS: Lung bases are clear. Within the abdomen, the abdominal gas pattern is normal. There is no evidence of obstruction or free air. No unusual calcifications are seen. IMPRESSION: NO ACUTE INTRA-ABDOMINAL ABNORMALITY.
[2018-03-15] MEDS ORDERED: KETOROLAC 30 MG/ML 1 ML VIAL IVP STA (15:14)
[2018-03-15 15:20] LABS: Creatine Kinase <20 U/L (30-135)
[2018-03-15 15:33] LABS: Creatine Kinase MB <0.2 ng/mL (0.0-2.4); Troponin I <0.012 ng/mL (0.000-0.034)
[2018-03-15 16:20] VITALS: BP 124/66; PULSE 60; RESP 18; TEMP 98.7
== END 2018-03-15 16:20 | disposition home or self-care (01) ==
LOC: EC 13:05
DX: K52.9 Noninfective gastroenteritis and colitis, unspecified (principal); K60.2 Anal fissure, unspecified; K64.8 Other hemorrhoids; F17.200 Nicotine dependence, unspecified, uncomplicated; Z85.42 Personal history of malignant neoplasm of other parts of uterus; Z90.49 Acquired absence of other specified parts of digestive tract; Z79.899 Other long term (current) drug therapy; Z91.040 Latex allergy status; Z88.2 Allergy status to sulfonamides; Z95.818 Presence of other cardiac implants and grafts; Z86.010 Personal history of colon polyps
CPT/HCPCS: 99284; 99406; 96374; 96361 ×2; 36415; 93005; 80053; 82150; 82550; 82553; 83690; 83735; 84484; 85025; 85610; 85730; 82272; 74018; J1885

== ENCOUNTER 2019-03-31 11:24 | Day surgery (SDC) | payer OTHER ==
[2019-03-29 11:08] VITALS: BMI 22.0
[~2019-03-31 11:24] MED LIST: LACTATED RINGERS 1,000 ML IV SCH
[2019-03-31 12:42] VITALS: TEMP 98.4
[2019-03-31] MEDS ORDERED: LIDOCAINE 1% 20 ML VIAL (10MG/ML) FOR IV START INTRADERMA ONE (12:49)
[2019-03-31] MEDS ORDERED: LIDOCAINE 1% INJ 10MG/ML (20 ML MDV) ONE (13:17)
[2019-03-31] MEDS ORDERED: PROPOFOL 10 MG/ML 20 ML VIAL IV ONE (13:17)
--- NOTE | 2019-03-31 13:35 | P.PCN ---
Date of Procedure: 03/31/19 Procedure(s) Performed: Brief history: Patient is a pleasant 63-year-old white female, scheduled for an elective upper endoscopy as well as colonoscopy as a part of evaluation of GERD and screening for colon cancer. Procedure performed: Esophagogastroduodenoscopy with biopsy Colonoscopy with snare polypectomy Preoperative diagnosis: GERD Screening for colon cancer Anesthesia: MAC Procedure: After informed consent was obtained from the patient was brought into the endoscopy unit and IV sedation was administered by anesthesia under continuous monitoring. Initially upper endoscopy was done. The Olympus GF 160 video endoscope was inserted inserted into the mouth and esophagus intubated without any difficulty and was gradually advanced into the stomach and duodenum and carefully examined. The bulb and second part of the duodenum appeared normal. The scope was then withdrawn into the stomach adequately insufflated with air and upon careful examination the antrum had mild gastritis and biopsies were done from this area. The body, cardia and fundus appeared normal. The scope was then withdrawn into the esophagus. The GE junction was located at 40 cm to the incisors. It appeared regular with circumferential erythema consistent with LA grade a reflux esophagitis Rest of the esophagus appeared normal. Patient tolerated the procedure well. At this time the patient continued to remain sedation. Initial digital rectal examination was normal. Olympus CF 160 video colonoscope was then inserted into the rectum and gradually advanced to the cecum without any difficulty. Careful examination was performed as the scope was gradually being withdrawn. The prep was excellent. The cecum, ascending colon, transverse colon, descending colon, sigmoid colon and rectum appeared normal. there was a sessile 5-6 mm sigmoid polyp polyp that was removed by snare polypectomy. Retroflexion was performed in the rectum and no lesions were noted. Patient tolerated the procedure well. Impression: 1. Upper endoscopy revealed mild antral gastritis and LA grade A reflux esophagitis 2.[ Colonoscopy revealed 5-6 mm sessile sigmoid colon polyp serous was snare polypectomy Recommendations: Findings of this examination were discussed with the patient as well as her family. She was advised to follow with the biopsy results. if the biopsy shows adenoma she can have a repeat colonoscopy in 5 years. In regards to the GERD symptoms she will continue with Prilosec 20 mg daily half hour before dinnertime and follow antireflux measures.
[2019-03-31 13:41] VITALS: BP 112/74; PULSE 78; RESP 14
[2019-03-31] MEDS ORDERED: HYDROcodone/APAP 5-325MG 1 EACH TAB PO ONE (13:53)
== END 2019-03-31 14:10 | disposition home or self-care (01) ==
LOC: ORWHC2ENDO 11:24
PROVIDERS: ATTEND Internal Medicine Gastroenterology
DX: Z12.11 Encounter for screening for malignant neoplasm of colon (principal); K63.5 Polyp of colon; K31.9 Disease of stomach and duodenum, unspecified; K21.0 Gastro-esophageal reflux disease with esophagitis; Z79.899 Other long term (current) drug therapy; J44.9 Chronic obstructive pulmonary disease, unspecified; M19.90 Unspecified osteoarthritis, unspecified site; Z79.82 Long term (current) use of aspirin; Z88.2 Allergy status to sulfonamides; Z91.040 Latex allergy status
CPT/HCPCS: 88305; 45385; 43239; J2001; J2704

== ENCOUNTER → 2019-04-07 | Outpatient (CLI) | payer OTHER ==
--- NOTE | 2019-04-07 15:28 | US ---
EXAMINATION TYPE: US pelvic complete DATE OF EXAM: 04/07/2019 COMPARISON: None CLINICAL HISTORY: 62-year-old female with R10.2 Pelvic Pain. Intermittent right pelvic pain x 6 month s, intermittent left pelvic pain x 2 weeks, 2, para 2, surgical history: partial hysterectomy , 2 c-sections, tubal ligation TECHNIQUE: Transabdominal sonographic images of the pelvis were acquired. Date of LMP: 30 years ago FINDINGS: EXAM MEASUREMENTS: Uterus: surgically absent Right Ovary: 2.1 x 1.2 x 1.5 cm Left Ovary: 2.3 x 1.3 x 1.3 cm 1. Uterus: surgically absent 2. Endometrium: surgically absent 3. Right Ovary: wnl 4. Left Ovary: wnl 5. Bilateral Adnexa: wnl 6. Posterior cul-de-sac: wnl IMPRESSION: Status post hysterectomy. Normal appearance to the small bilateral ovaries. No pelvic free fluid.
--- NOTE | 2019-04-08 11:35 | MM ---
Reason for exam: screening (asymptomatic). Last mammogram was performed 15 years and 10 months ago. History: Patient is postmenopausal and has history of other cancer at age 36. Physical Findings: A clinical breast exam by your physician is recommended on an annual basis and results should be correlated with mammographic findings. MG Screening Mammo w CAD Bilateral CC and MLO view(s) were taken. No prior studies available for comparison. The breast tissue is heterogeneously dense. This may lower the sensitivity of mammography. There is no discrete abnormality. ASSESSMENT: Negative, BI-RAD 1 RECOMMENDATION: Routine screening mammogram of both breasts in 1 year.
== END | disposition home or self-care (01) ==
LOC: RADUSWWP 14:04
PROVIDERS: ATTEND Family Medicine
DX: Z12.31 Encounter for screening mammogram for malignant neoplasm of breast (principal); R10.2 Pelvic and perineal pain; Z90.710 Acquired absence of both cervix and uterus
CPT/HCPCS: 76856; 77067

== ENCOUNTER → 2019-05-11 | Outpatient (CLI) | payer OTHER ==
--- NOTE | 2019-05-11 08:38 | US ---
EXAMINATION TYPE: US abdomen complete DATE OF EXAM: 05/11/2019 COMPARISON: NONE CLINICAL HISTORY: R10.11 right upper quadrant pain, R30.0 Dysuria. EXAM MEASUREMENTS: Liver Length: 10.7 cm Gallbladder Wall: 0.4 cm CBD: 0.6 cm Spleen: 9.8 cm Right Kidney: 10.8 x 4.1 x 4.5 cm Left Kidney: 9.6 x 5.7 x 5.5 cm Pancreas: visualized portions wnl Liver: wnl Gallbladder: appears contracted, wall is thickened Evidence for sonographic Cuellar's sign: Yes CBD: wnl Spleen: wnl Right Kidney: No hydronephrosis or masses seen Left Kidney: No hydronephrosis or masses seen Upper IVC: wnl Abd Aorta: mild atherosclerosis The liver is homogenous. The intrahepatic portion of the IVC and proximal abdominal aorta are within normal limits. There is no evidence of cholelithiasis. Common bile duct is upper limits of normal. The visualized portions of the pancreas are homogenous. The spleen is unremarkable. Kidneys are s ymmetric and free of hydronephrosis. No renal lesions are seen. IMPRESSION: Findings suspicious for chronic cholecystitis with mild gallbladder wall thickening although the gall bladder is contracted, upper limits of normal size of the common bile duct, and positive sonographic Cuellar sign. HIDA scan with CCK could assess for chronic cholecystitis or biliary dyskinesia as well as correlation with bilirubin levels.
== END | disposition home or self-care (01) ==
LOC: RADUSWWP 06:46
PROVIDERS: ATTEND Family Medicine
DX: R10.11 Right upper quadrant pain (principal); R30.0 Dysuria
CPT/HCPCS: 76700

== ENCOUNTER → 2019-05-27 | Outpatient (CLI) | payer OTHER ==
--- NOTE | 2019-05-27 09:20 | NM ---
EXAMINATION TYPE: NM hepatobiliary w EF DATE OF EXAM: 05/27/2019 COMPARISON: Ultrasound dated 05/11/2019 HISTORY: Right upper quadrant pain and abnormal ultrasound of 05/11/2019 TECHNIQUE: After the intravenous administration of 4.16 mCi Tc 99m Mebrofenin hepatobiliary scintigra phy is performed. Immediate images post injection. FINDINGS: There is satisfactory initial accumulation of tracer by the liver. The gallbladder is visualized wit hin 20 minutes. The small bowel activity is noted within 44 minutes. At one hour 8 ounces of oral e nsure plus is given to mimic CCK and gallbladder ejection fraction is calculated at 93 %, abnormally elevated. Therefore there is no scintigraphic evidence of cystic or common bile duct obstruction to suggest acute cholecystitis or gallbladder dyskinesia. IMPRESSION: 1. Abnormally elevated and gallbladder ejection fraction of 93% compatible with biliary hyperkinesia. 2. No scintigraphic evidence of acute or chronic cholecystitis.
== END | disposition home or self-care (01) ==
LOC: RADNMMAIN 06:43
PROVIDERS: ATTEND Family Medicine
DX: R93.5 Abnormal findings on diagnostic imaging of other abdominal regions, including retroperitoneum (principal)
CPT/HCPCS: 78226; A9537

== ENCOUNTER 2019-06-16 06:38 | Day surgery (SDC) | payer OTHER ==
[2019-06-14 13:55] VITALS: BMI 24.5
[~2019-06-16 06:38] MED LIST changes: +DEXAMETHASONE SOD PHOSPHATE 10 MG/ML 1 ML VIAL IV ONE; +HEPARIN SODIUM,PORCINE 5,000 UNIT/ML 1 ML VIAL SQ ONE; +LIDOCAINE 1% 20 ML VIAL (10MG/ML) FOR IV START INTRADERMA PRN; +MIDAZOLAM 2 MG/2 ML VIAL IV PRN; +fentaNYL (PF) 50 MCG/ML 2 ML AMP IV PRN
[2019-06-16] MEDS ORDERED: ONDANSETRON 4 MG/2 ML VIAL IVP ONE (07:26)
[2019-06-16] MEDS ORDERED: LACTATED RINGERS 1,000 ML IV ONE (07:26)
[2019-06-16] MEDS ORDERED: SUCCINYLCHOLINE CHLORIDE 100 MG/5 ML SYR IV ONE (07:49)
[2019-06-16] MEDS ORDERED: MIDAZOLAM 2 MG/2 ML VIAL ONE (07:49)
[2019-06-16] MEDS ORDERED: PROPOFOL 10 MG/ML 20 ML VIAL IV ONE (07:49)
[2019-06-16] MEDS ORDERED: GLYCOPYRROLATE 0.2 MG/ML 2 ML VIAL ONE (07:49)
[2019-06-16] MEDS ORDERED: KETOROLAC 30 MG/ML 1 ML VIAL ONE (07:49)
[2019-06-16] MEDS ORDERED: NEOSTIGMINE 1 MG/ML 10 ML VIAL ONE (07:49)
[2019-06-16] MEDS ORDERED: ROCURONIUM BROMIDE 10 MG/ML 10 ML VIAL IV ONE (07:49)
[2019-06-16] MEDS ORDERED: fentaNYL (PF) 50 MCG/ML 2 ML AMP ONE (07:49)
[2019-06-16] MEDS ORDERED: BUPIVACAINE (PF) 0.5% 30 ML VIAL SQ ONE (08:13)
[2019-06-16 08:44] VITALS: TEMP 97.5
[2019-06-16] MEDS ORDERED: HYDROmorphone 1 MG/ML 1 ML SYRINGE IVP ONE ×2 (08:44→08:50)
[2019-06-16 08:49] VITALS: RESP 16
--- NOTE | 2019-06-16 08:51 | P.OP ---
Date of Procedure: 06/16/19 Preoperative Diagnosis: Cholecystitis Postoperative Diagnosis: Cholecystitis Cholelithiasis Procedure(s) Performed: Laparoscopic cholecystectomy Anesthesia: RITA Surgeon: Shaheed Medellin Estimated Blood Loss (ml): 5 Pathology: other (Gallbladder) Condition: stable Disposition: PACU Description of Procedure: The patient was placed on the operating table. The patient received a general endotracheal tube anesthesia. The patients abdomen was prepped and draped in the usual sterile fashion. Through an infraumbilical stab incision, the fascia of the anterior abdominal wall was grasped with a pair of Kochers and then the Veress needle was placed in the peritoneal cavity. Position of the Veress needle was confirmed with positive drop test. The abdomen was then insufflated. After adequate insufflation, the 10 mm trocar was placed in the peritoneal cavity. Following this the laparoscope was placed in the peritoneal cavity. The patient was placed in the head-up, right side up position and then a 5 mm trocar was placed in the right lateral and right subcostal position under direct visualization. A 8 mm trocar was placed in the epigastric position. The gallbladder was grasped in the fundus and infundibulum. Traction on the gallbladder was placed in the lateral and the cephalad positions. The triangle of Calot was visualized.. The cystic duct was bluntly dissected until the union of the cystic duct and common bile duct was seen. A critical view of safety was achieved. The cystic duct was then divided and sealed with the Harmonic scissors. A PDS Endoloop was then placed throughout the cystic duct stump. The cystic artery divided and sealed with the Harmonic scissors. The gallbladder was then removed from the liver bed using Harmonic scissors. The gallbladder was then extracted through the epigastric port site. Operative field was checked for any bleeding spots and Harmonic scissors was used to coagulate the liver bed. The abdomen was irrigated. The trocars were removed. The skin was closed using interrupted 3-0 Vicryl suture. Dermabond dressing were applied. The patient tolerated the procedure well.
--- NOTE | 2019-06-16 08:54 | P.GSHP ---
History of Present Illness H&P Date: 06/16/19 Chief Complaint: Right upper quadrant pain This is a 63-year-old female with complaints of abdominal pain. Patient was worked up with a HIDA scan she has a hyperkinetic gallbladder with ejection fraction of 93% consistent with biliary hypokinesis. Patient presents today for laparoscopic cholecystectomy. Past Medical History Past Medical History: Cancer, COPD, GERD/Reflux, Hyperlipidemia, Osteoarthritis (OA) Additional Past Medical History / Comment(s): PRE CA UTERINE, CHEST TUBE X1 SPONTANEOUS PNEUMOTHORAX X2, HX ENVIRONMENTAL ALLERGIES., 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 History of Any Multi-Drug Resistant Organisms: None Reported Past Surgical History: Appendectomy, Bladder Surgery, Section, Hysterectomy, Uterine Ablation Additional Past Surgical History / Comment(s): spontaneous pneumothorax X2/CHEST TUBE WITH FIRST ONE, COLONOSCOPY POLYPECTOMY, EGD, RT WRIST GANGLION CYST REMOVED., PARTIAL HYSTERECTOMY (HAS OVARIES). Past Anesthesia/Blood Transfusion Reactions: No Reported Reaction Smoking Status: Current every day smoker - Past Family History Father Family Medical History: Cancer, Myocardial Infarction ([place]), Osteoarthritis (OA) Additional Family Medical History / Comment(s): LUNG CA AND CIRRHOSIS. Mother Family Medical History: COPD, Osteoarthritis (OA) Additional Family Medical History / Comment(s): GLAUCOMA Medications and Allergies Home Medications Medication Instructions Recorded Confirmed Type Aspirin [Adult Low Dose Aspirin EC] 81 mg PO DAILY 03/29/19 06/16/19 History Atorvastatin [Lipitor] 40 mg PO HS 03/29/19 06/16/19 History Ergocalciferol (Vitamin D2) 50,000 unit PO FR 03/29/19 06/16/19 History [Vitamin D2] Omeprazole Magnesium [PriLOSEC OTC] 20 mg PO DAILY PRN 03/29/19 06/16/19 History Allergies Allergy/AdvReac Type Severity Reaction Status Date / Time latex Allergy Rash/Hives Verified 06/16/19 07:09 sulfamethoxazole Allergy Rash/Hives Verified 06/16/19 07:09 [From Bactrim] trimethoprim [From Bactrim] Allergy Rash/Hives Verified 06/16/19 07:09 Surgical - Exam Vital Signs Temp Pulse Resp BP Pulse Ox 97.6 F 62 16 99/54 94 L 06/16/19 07:14 06/16/19 07:14 06/16/19 07:14 06/16/19 07:14 06/16/19 07:14 - General well developed, well nourished, no distress - Eyes PERRL - ENT normal pinna - Neck no masses - Respiratory normal expansion - Cardiovascular Rhythm: regular - Abdomen Abdomen: soft, non tender Assessment and Plan Assessment: Right upper quadrant pain. Biliary hyperkinesis We'll perform laparoscopic cholecystectomy.
[2019-06-16 09:55] VITALS: BP 124/66; PULSE 51
== END 2019-06-16 10:41 | disposition home or self-care (01) ==
LOC: OR 06:38
PROVIDERS: ATTEND Surgery
DX: K50.10 Crohn's disease of large intestine without complications (principal); E78.5 Hyperlipidemia, unspecified; F17.200 Nicotine dependence, unspecified, uncomplicated; J44.9 Chronic obstructive pulmonary disease, unspecified; K21.9 Gastro-esophageal reflux disease without esophagitis; M19.90 Unspecified osteoarthritis, unspecified site; Z79.82 Long term (current) use of aspirin; Z86.010 Personal history of colon polyps; Z88.1 Allergy status to other antibiotic agents; Z88.2 Allergy status to sulfonamides; Z90.49 Acquired absence of other specified parts of digestive tract; Z91.040 Latex allergy status
CPT/HCPCS: 88304; 47562; J2250; J1644; J1100; J2710; J2405; J3010; J1885; J1170; J0330; J2704

== ENCOUNTER 2019-08-05 08:25 | Observation (INO) | payer OTHER ==
[2019-07-27 09:52] VITALS: BMI 24.7
[~2019-08-05 08:25] MED LIST changes: -MIDAZOLAM 2 MG/2 ML VIAL IV PRN; +ONDANSETRON 4 MG/2 ML VIAL IVP ONE; +SCOPOLAMINE 1.5MG/72HR PATCH TRANSDERM ONE; -fentaNYL (PF) 50 MCG/ML 2 ML AMP IV PRN
[2019-08-05 09:17] VITALS: RESP 16
--- NOTE | 2019-08-05 09:45 | P.GSHP ---
History of Present Illness H&P Date: 08/05/19 Chief Complaint: GERD This a 63-year-old female referred from Dr. Thakur. The patient has had long-standing problems with reflux esophagitis. The patient underwent recent EGD is found have evidence of esophagitis. Patient has been well informed on th e procedure of laparoscopic Shama fundoplication. The patient is aware the risk of the conversion to the open procedure, risk of injury to the stomach, liver and spleen. The patient is also a risk of recurrent GERD and dysphagia symptoms. The patient understands there is a postoperative diet of full liquids for 2 weeks after surgery. 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 History of Any Multi-Drug Resistant Organisms: None Reported Past Surgical History: Appendectomy, Bladder Surgery, Section, Cholecystectomy, Hysterectomy, Uterine Ablation Additional Past Surgical History / Comment(s): shaheed 06-16-19, COLONOSCOPY POLYPECTOMY, EGD, RT WRIST GANGLION CYST REMOVED., PARTIAL HYSTERECTOMY (HAS OVARIES). Past Anesthesia/Blood Transfusion Reactions: No Reported Reaction, Family History of Problems w/ Anesthesia Additional Past Anesthesia/Blood Transfusion Reaction / Comment(s): mother had problems coming out of anesthesia. no problems with prior blood transfusions Smoking Status: Current every day smoker - Past Family History Father Family Medical History: Cancer, CVA/TIA, Osteoarthritis (OA) Additional Family Medical History / Comment(s): LUNG CA AND CIRRHOSIS. Mother Family Medical History: COPD, Osteoarthritis (OA) Additional Family Medical History / Comment(s): GLAUCOMA Medications and Allergies Home Medications Medication Instructions Recorded Confirmed Type Aspirin [Adult Low Dose Aspirin EC] 81 mg PO DAILY 03/29/19 08/05/19 History Atorvastatin [Lipitor] 40 mg PO HS 03/29/19 08/05/19 History Ergocalciferol (Vitamin D2) 50,000 unit PO FR 03/29/19 08/05/19 History [Vitamin D2] Omeprazole Magnesium [PriLOSEC OTC] 20 mg PO DAILY PRN 03/29/19 08/05/19 History Docusate [Colace] 100 mg PO BID PRN 07/27/19 08/05/19 History Naproxen Sodium [Aleve] 220,440 mg PO Q12HR PRN 07/27/19 08/05/19 History Allergies Allergy/AdvReac Type Severity Reaction Status Date / Time latex Allergy Rash/Hives Verified 08/05/19 09:14 sulfamethoxazole Allergy Rash/Hives Verified 08/05/19 09:14 [From Bactrim] trimethoprim [From Bactrim] Allergy Rash/Hives Verified 08/05/19 09:14 Surgical - Exam Vital Signs Temp Pulse Resp BP Pulse Ox 97.8 F 56 L 16 139/65 100 08/05/19 09:15 08/05/19 09:15 08/05/19 09:15 08/05/19 09:15 08/05/19 09:15 - General well developed, well nourished, no distress - Eyes PERRL - ENT normal pinna - Neck no masses - Respiratory normal expansion - Cardiovascular Rhythm: regular - Abdomen Abdomen: soft, non tender Assessment and Plan Assessment: GERD. We'll perform laparoscopic Shama fundoplication.
[2019-08-05] MEDS ORDERED: SUCCINYLCHOLINE CHLORIDE 100 MG/5 ML SYR IV ONE (10:15)
[2019-08-05] MEDS ORDERED: MIDAZOLAM 2 MG/2 ML VIAL ONE (10:15)
[2019-08-05] MEDS ORDERED: fentaNYL (PF) 50 MCG/ML 2 ML AMP ONE (10:15)
[2019-08-05] MEDS ORDERED: KETOROLAC 30 MG/ML 1 ML VIAL ONE (10:15)
[2019-08-05] MEDS ORDERED: ROCURONIUM BROMIDE 10 MG/ML 10 ML VIAL IV ONE (10:15)
[2019-08-05] MEDS ORDERED: LIDOCAINE 1% INJ 10MG/ML (20 ML MDV) ONE (10:15)
[2019-08-05] MEDS ORDERED: NEOSTIGMINE 1 MG/ML 10 ML VIAL ONE (10:15)
[2019-08-05] MEDS ORDERED: PROPOFOL 10 MG/ML 20 ML VIAL IV ONE (10:15)
[2019-08-05] MEDS ORDERED: ePHEDrine SULFATE/0.9% NACL/PF 50 MG/5 ML SYRINGE IV ONE (10:15)
[2019-08-05] MEDS ORDERED: GLYCOPYRROLATE 0.2 MG/ML 2 ML VIAL ONE (10:15)
[2019-08-05] MEDS ORDERED: BUPIVACAIN-EPI 0.25%-1:200,000 30 ML VIAL SQ ONE (10:41)
[2019-08-05] MEDS ORDERED: LACTATED RINGERS 1,000 ML IV ONE (10:50)
--- NOTE | 2019-08-05 11:28 | P.OP ---
Date of Procedure: 08/05/19 Preoperative Diagnosis: GERD Postoperative Diagnosis: GERD Adhesions Procedure(s) Performed: Laparoscopic Shama fundoplication Anesthesia: MAC Surgeon: Shaheed Medellin Estimated Blood Loss (ml): 5 Pathology: none sent Condition: stable Disposition: PACU Description of Procedure: Randyhe patient was placed on the operating table in the supine position. The patient received general anesthesia. And was placed in dorsal lithotomy position. The patient was prepped and draped in the usual sterile fashion. The skin incision sites were anesthetized with 1% local Xylocaine. The skin was incised in the left periumbilical area and then using a blade less 5 mm trocar under direct visualization panel cavity was entered. After adequate insufflation the laparoscope was then placed into the peritoneal cavity. Next a 5 mm trochars placed in the right epigastric position. Another 5 millimeter trocar the right lateral position. Another 5 millimeter trocar in the left lateral position a 5 mm trocar is placed in the left epigastric position. And then the initial 5 mm trocar was exchanged for a 10 mm trocar. The left lateral lobe liver was retracted. There were adhesions in the epigastric area. These were lysed with sharp dissection and the Harmonic scissors. The hernia was seen. The crural defect was then dissected using the Harmonic scissors device. A 360 crural dissection was performed the esophagus stomach was reduced back into the peritoneal Cavity. The crural defect was then closed using 2-0 Ethibond suture. Next the fundus of the stomach was mobilized using the [place] scissors device. and then a 58-Nepali bougie dilator was placed oropharynx passed into the esophagus and stomach the fundal plication wrap was then performed by grasping the fundus posteriorly and bringing it around the esophagus and stomach fundoplication was then performed using 2-0 Ethibond suture. Care was taken that the fundal location rested over top of the intra- abdominal esophagus. There was no injury seen to the stomach or esophagus. The dilator was then withdrawn. The abdomen was irrigated there is no bleeding seen. The trochars were then withdrawn and then skin incision sites were closed using 3-0 Monocryl suture Steri-Strips are applied. Patient thought procedure well and sent to recovery room in stable condition.
[2019-08-05] MEDS: HYDROmorphone 0.5 MG/0.5 ML SYRINGE IVP PRN ×2 (11:47→11:52)
--- NOTE | 2019-08-05 14:19 | FL ---
Single contrast esophagram EXAMINATION TYPE: FL esophagus cervic/pharynx DATE OF EXAM: 08/05/2019 2:10 PM COMPARISON: NONE CLINICAL HISTORY: Status post Evens fundoplication The patient ingested contrast without difficulty. Noted are changes of Evens fundoplication. Modera te obstruction noted with moderate stasis of contrast within the esophagus. Changes likely related to edema at the surgical site. IMPRESSION: Moderate obstruction noted with moderate stasis of contrast within the esophagus.
--- NOTE | 2019-08-05 14:24 | P.CONS ---
History of Present Illness - History of Present Illness This is a pleasant 63 years old female with past medical history of COPD, GERD, hyperlipidemia, osteoarthritis, pneumothorax. Presents for elective Laparoscopic Shama fundoplication. Today is postop day #0. Medical consult has been requested for medical management. Patient states that she has this swallowing problem and whenever she eats she gets regurgitation of foods and drinks for many years since she was 30s, and it was getting worse lately. Postprocedure she still have some swallowing difficulties and regurgitation symptoms, she underwent swallow evaluation and test With FL esophagus cervix/findings, with results still pending to rule out obstruction or leaking lesion. Patient denies chest pain or dyspnea. No abdominal pain. No nausea vomiting. No change in urine or bowel habits. No fever. Vitas looks stable, patient is afebrile. Currently patient is on Lovenox 40 mg daily and D5 half normal saline and 125 mm per hour. Review of Systems CONSTITUTIONAL: No fever, no malaise, no fatigue. HEENT: No recent visual problems or hearing problems. Denied any sore throat. CARDIOVASCULAR: No orthopnea, PND, no palpitations, no syncope. PULMONARY: No shortness of breath, no cough, no hemoptysis. GASTROINTESTINAL: No diarrhea, no nausea, no vomiting, no abdominal pain. Normoactive bowel sounds. NEUROLOGICAL: No headaches, no weakness, no numbness. HEMATOLOGICAL: Denies any bleeding or petechiae. GENITOURINARY: Denies any burning micturition, frequency, or urgency. MUSCULOSKELETAL/RHEUMATOLOGICAL: Denies any joint pain, swelling, or any muscle pain. ENDOCRINE: Denies any polyuria or polydipsia. 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 History of Any Multi-Drug Resistant Organisms: None Reported Past Surgical History: Appendectomy, Bladder Surgery, Section, Cholecystectomy, Hysterectomy, Uterine Ablation Additional Past Surgical History / Comment(s): shaheed 06-16-19, COLONOSCOPY POLYPECTOMY, EGD, RT WRIST GANGLION CYST REMOVED., PARTIAL HYSTERECTOMY (HAS OVARIES). Past Anesthesia/Blood Transfusion Reactions: No Reported Reaction, Family History of Problems w/ Anesthesia Additional Past Anesthesia/Blood Transfusion Reaction / Comm: mother had problems coming out of anesthesia. no problems with prior blood transfusions Smoking Status: Current every day smoker - Past Family History Father Family Medical History: Cancer, CVA/TIA, Osteoarthritis (OA) Additional Family Medical History / Comment(s): LUNG CA AND CIRRHOSIS. Mother Family Medical History: COPD, Osteoarthritis (OA) Additional Family Medical History / Comment(s): GLAUCOMA Medications and Allergies Home Medications Medication Instructions Recorded Confirmed Type Aspirin [Adult Low Dose Aspirin EC] 81 mg PO DAILY 03/29/19 08/05/19 History Atorvastatin [Lipitor] 40 mg PO HS 03/29/19 08/05/19 History Ergocalciferol (Vitamin D2) 50,000 unit PO FR 03/29/19 08/05/19 History [Vitamin D2] Omeprazole Magnesium [PriLOSEC OTC] 20 mg PO DAILY PRN 03/29/19 08/05/19 History Docusate [Colace] 100 mg PO BID PRN 07/27/19 08/05/19 History Naproxen Sodium [Aleve] 220,440 mg PO Q12HR PRN 07/27/19 08/05/19 History Allergies Allergy/AdvReac Type Severity Reaction Status Date / Time latex Allergy Rash/Hives Verified 08/05/19 09:14 sulfamethoxazole Allergy Rash/Hives Verified 08/05/19 09:14 [From Bactrim] trimethoprim [From Bactrim] Allergy Rash/Hives Verified 08/05/19 09:14 Physical Exam Vitals: Vital Signs Temp Pulse Pulse Pulse Resp BP BP 08/05/19 12:15 97.3 F L 50 L 16 149/84 08/05/19 11:45 54 L 16 144/64 08/05/19 11:30 48 L 16 146/73 08/05/19 11:18 96.8 F L 64 16 170/79 08/05/19 09:15 97.8 F 56 L 16 139/65 Pulse Ox 08/05/19 12:15 95 08/05/19 11:45 99 08/05/19 11:30 100 08/05/19 11:18 98 08/05/19 09:15 100 Intake and Output 08/04/19 08/05/19 08/05/19 22:59 06:59 14:59 Intake Total 1150 Output Total 5 Balance 1145 Intake: IV 1150 Output: Estimated Blood Loss 5 GENERAL: The patient is alert and oriented x3, not in any acute distress. Well developed, well nourished. HEENT: Pupils are round and equally reacting to light. EOMI. No scleral icterus. No conjunctival pallor. Normocephalic, atraumatic. No pharyngeal erythema. No thyromegaly. CARDIOVASCULAR: S1 and S2 present. No murmurs, rubs, or gallops. PULMONARY: Chest is clear to auscultation, no wheezing or crackles. -ABDOMEN: Soft, expected tenderness from the procedure, nondistended, normoactive bowel sounds. No palpable organomegaly. 5. Laparoscopic site wounds are closed with dressing in place MUSCULOSKELETAL: No joint swelling or deformity. EXTREMITIES: No cyanosis, clubbing, or pedal edema. NEUROLOGICAL: Gross neurological examination did not reveal any focal deficits. SKIN: No rashes. Assessment and Plan Assessment: GERD, status post Laparoscopic Shama fundoplication COPD, not acute exacerbation Hyperlipidemia Osteoarthritis History of Pneumothorax Plan: This is a pleasant 63 years old female who presents with elective Laparoscopic Shama fundoplication for her esophagitis. Follow-up the swallow evaluation test. Labs and medication were reviewed.. Continue same treatment. Continue with symptomatic treatment. Resume home medication. Monitor lytes and vitals. DVT and GI prophylaxis. Further recommendations of the clinical course of the patient DVT prophylaxis: Subcutaneous Lovenox GI Prophylaxis: Protonix Prognosis is guarded
[2019-08-05] MEDS: HYDROmorphone 1 MG/ML 1 ML SYRINGE IVP PRN ×3 (15:40→23:49)
[2019-08-05] MEDS: D5-0.45% NACL WITH KCL 20MEQ/L 1,000 ML IV SCH ×2 (15:46→23:48)
[2019-08-05] MEDS: PANTOPRAZOLE 40 MG/10 ML VIAL IVP SCH (15:47)
[2019-08-06] MEDS ORDERED: ACETAMINOPHEN TAB 325 MG TAB PO PRN (06:54)
[2019-08-06] MEDS ORDERED: HYDROcodone/APAP 5-325MG 1 EACH TAB PO PRN (06:54)
[2019-08-06] MEDS: D5-0.45% NACL WITH KCL 20MEQ/L 1,000 ML IV SCH ×2 (07:37→13:32)
[2019-08-06] MEDS: PANTOPRAZOLE 40 MG/10 ML VIAL IVP SCH (08:46)
[2019-08-06] MEDS ORDERED: ENOXAPARIN 40 MG/0.4 ML SYRINGE SQ SCH (09:00)
[2019-08-06] MEDS: DEXAMETHASONE SOD PHOSPHATE 4 MG/ML 1 ML VIAL IV SCH ×2 (09:54→13:32)
[2019-08-06 14:55] VITALS: BP 148/79; PULSE 58; TEMP 98
--- NOTE | 2019-08-06 15:25 | P.DS ---
Providers Date of admission: 08/05/19 19:42 Expected date of discharge: 08/06/19 Attending physician: Shaheed Medellin Consults: 08/05/19 11:28 Consult Physician Routine Consulting Provider: Patricia Reed Consult Reason/Comments: Medical management Do you want consulting provider notified?: Yes Primary care physician: [facility] Hospital Course: 63-year-old female who underwent laparoscopic Shama fundoplication with Dr. Medellin. Esophagram completed postoperatively revealed moderate obstruction secondary to postoperative edema. Patient was started on IV Decadron. She has been tolerating clear liquid diet without difficulty since initiation of Decadron. Vital signs have been stable. Pain is controlled on oral medications. She is stable for discharge home today. Please see EMR for further hospital course details. Discharge diagnosis 1. GERD, status post laparoscopic Shama fundoplication Nurse practitioner note has been reviewed by physician. Signing provider agrees with the documented findings, assessment, and plan of care. Patient Condition at Discharge: Stable Plan - Discharge Summary Discharge Rx Participant: Yes New Discharge Prescriptions: New Hydrocodone/Acetaminophen [[place] 5-325] 1 tab PO Q4HR PRN 3 Days #18 tab PRN Reason: Pain No Action Atorvastatin [Lipitor] 40 mg PO HS Omeprazole Magnesium [PriLOSEC OTC] 20 mg PO DAILY PRN PRN Reason: Heartburn Ergocalciferol (Vitamin D2) [Vitamin D2] 50,000 unit PO FR Aspirin [Adult Low Dose Aspirin EC] 81 mg PO DAILY Docusate [Colace] 100 mg PO BID PRN PRN Reason: Constipation Naproxen Sodium [Aleve] 220 - 440 mg PO Q12HR PRN PRN Reason: Pain Discharge Medication List Aspirin [Adult Low Dose Aspirin EC] 81 mg PO DAILY 03/29/19 [History] Atorvastatin [Lipitor] 40 mg PO HS 03/29/19 [History] Ergocalciferol (Vitamin D2) [Vitamin D2] 50,000 unit PO FR 03/29/19 [History] Omeprazole Magnesium [PriLOSEC OTC] 20 mg PO DAILY PRN 03/29/19 [History] Docusate [Colace] 100 mg PO BID PRN 07/27/19 [History] Naproxen Sodium [Aleve] 220 - 440 mg PO Q12HR PRN 07/27/19 [History] Hydrocodone/Acetaminophen [[place] 5-325] 1 tab PO Q4HR PRN 3 Days #18 tab 08/06/19 [Rx] Follow up Appointment(s)/Referral(s): Shaheed Medellin MD [STAFF PHYSICIAN] - 08/19/19 1:20 pm Activity/Diet/Wound Care/Special Instructions: No driving while taking [place] No lifting over 10 pounds You may shower. No soaking or tub baths Very light activity until you are reevaluated at your follow up appointment with your surgeon Continue clear liquid diet until 08/09/[address] Medellin. After that, you may begin full liquid diet for two weeks.as directed (see Diet sheet) No straws or carbonated beverages call office with any fever, chills,increased pain not covered with pain meds., increased redness or discolored drainage from puncture site, inability to swallow or any concerns. Discharge Disposition: HOME SELF-CARE
== END 2019-08-06 14:41 | disposition home or self-care (01) ==
LOC: OR 08:25 → 6PED 11:09 → OR 19:42
PROVIDERS: ADMIT Surgery; ATTEND Surgery
DX: K21.9 Gastro-esophageal reflux disease without esophagitis (principal); K66.0 Peritoneal adhesions (postprocedural) (postinfection); K91.89 Other postprocedural complications and disorders of digestive system; R60.0 Localized edema; J44.9 Chronic obstructive pulmonary disease, unspecified; M19.90 Unspecified osteoarthritis, unspecified site; E78.5 Hyperlipidemia, unspecified; J30.2 Other seasonal allergic rhinitis; F17.200 Nicotine dependence, unspecified, uncomplicated; Z79.1 Long term (current) use of non-steroidal anti-inflammatories (NSAID); Z79.82 Long term (current) use of aspirin; Z79.899 Other long term (current) drug therapy; Z88.1 Allergy status to other antibiotic agents; Z88.2 Allergy status to sulfonamides; Z91.040 Latex allergy status; Z86.010 Personal history of colon polyps; Z90.49 Acquired absence of other specified parts of digestive tract; Z90.710 Acquired absence of both cervix and uterus; Z87.42 Personal history of other diseases of the female genital tract; Z87.09 Personal history of other diseases of the respiratory system; Z82.5 Family history of asthma and other chronic lower respiratory diseases; Z82.61 Family history of arthritis; Z82.3 Family history of stroke; Z83.79 Family history of other diseases of the digestive system; Z83.511 Family history of glaucoma; Z80.1 Family history of malignant neoplasm of trachea, bronchus and lung
CPT/HCPCS: 43280; 74210; G0378 ×2; J2250; J1644; J1100 ×2; J2710; J0690; J2405; J2001; J1650; J3010; J1885; J1170 ×2; J0330; J2704; C9113 ×2

== ENCOUNTER 2019-10-03 16:23 | Observation (INO) | payer OTHER ==
[2019-10-03] MEDS ORDERED: ASPIRIN 81 MG PO STA (16:51)
--- NOTE | 2019-10-03 16:56 | ED ---
Chest Pain HPI - General Chief Complaint: Chest Pain Stated Complaint: THU Time Seen by Provider: 10/03/19 16:41 Source: patient Mode of arrival: ambulatory Limitations: no limitations - History of Present Illness Initial Comments: Patient is a 64-year-old female with history of COPD is presenting to the emergency department with a chief complaint of chest pain. Patient reports she developed pleural chest pain yesterday that seems to be exacerbated with full inspiration. Patient reports left-sided chest pain that radiates to the left shoulder. Patient does report diaphoresis with states that her baseline. Patient does report some lightheadedness but denies any blurry vision or dizziness. Patient is a smoker, has hypercholesterolemia but no hypertension. Patient reports some shortness of breath but states that is her baseline. Patient denies dyspnea on exertion. Patient reports the pain is not reproducible with palpation. Patient denies any abdominal pain, nausea or vomiting. Patient denies focal neural deficits. - Related Data Home Medications Medication Instructions Recorded Confirmed Aspirin [Adult Low Dose Aspirin EC] 81 mg PO DAILY 03/29/19 08/06/19 Atorvastatin [Lipitor] 40 mg PO HS 03/29/19 08/06/19 Ergocalciferol (Vitamin D2) 50,000 unit PO FR 03/29/19 08/06/19 [Vitamin D2] Omeprazole Magnesium [PriLOSEC OTC] 20 mg PO DAILY PRN 03/29/19 08/06/19 Docusate [Colace] 100 mg PO BID PRN 07/27/19 08/06/19 Naproxen Sodium [Aleve] 220 - 440 mg PO Q12HR PRN 07/27/19 08/06/19 Previous Rx's Medication Instructions Recorded Hydrocodone/Acetaminophen [[place] 1 tab PO Q4HR PRN 3 Days #18 tab 08/06/19 5-325] Allergies Allergy/AdvReac Type Severity Reaction Status Date / Time latex Allergy Rash/Hives Verified 08/06/19 06:54 sulfamethoxazole Allergy Rash/Hives Verified 08/06/19 06:54 [From Bactrim] trimethoprim [From Bactrim] Allergy Rash/Hives Verified 08/06/19 06:54 Review of Systems ROS Statement: Those systems with pertinent positive or pertinent negative responses have been documented in the HPI. ROS Other: All systems not noted in ROS Statement are negative. EKG Findings - EKG Comments: EKG Findings:: Normal sinus rhythm, no ST elevations Changes. 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 History of Any Multi-Drug Resistant Organisms: None Reported Past Surgical History: Appendectomy, Bladder Surgery, Section, Cholecystectomy, Hysterectomy, Uterine Ablation Additional Past Surgical History / Comment(s): shaheed 06-16-19, COLONOSCOPY POLYPECTOMY, EGD, RT WRIST GANGLION CYST REMOVED., PARTIAL HYSTERECTOMY (HAS OVARIES). Past Anesthesia/Blood Transfusion Reactions: No Reported Reaction, Family History of Problems w/ Anesthesia Additional Past Anesthesia/Blood Transfusion Reaction / Comment(s): mother had problems coming out of anesthesia. no problems with prior blood transfusions Past Psychological History: Anxiety, Depression Smoking Status: Current every day smoker Past Alcohol Use History: Rare Past Drug Use History: Marijuana - Past Family History Father Family Medical History: Cancer, CVA/TIA, Osteoarthritis (OA) Additional Family Medical History / Comment(s): LUNG CA AND CIRRHOSIS. Mother Family Medical History: COPD, Osteoarthritis (OA) Additional Family Medical History / Comment(s): GLAUCOMA General Exam Limitations: no limitations General appearance: alert, in no apparent distress Head exam: Present: atraumatic, normocephalic, normal inspection Eye exam: Present: normal appearance, PERRL, EOMI Pupils: Present: normal accommodation ENT exam: Present: normal exam, mucous membranes moist, normal external ear exam Neck exam: Present: normal inspection, full ROM. Absent: tenderness Respiratory exam: Present: normal lung sounds bilaterally Cardiovascular Exam: Present: regular rate, normal rhythm, normal heart sounds GI/Abdominal exam: Present: soft. Absent: tenderness Extremities exam: Present: normal inspection, full ROM, normal capillary refill, other (+2 ulnar and radial pulses bilaterally. +2 dorsalis pedis and posterior tibialis bilaterally.) Back exam: Present: normal inspection, full ROM Neurological exam: Present: alert, oriented X3 Psychiatric exam: Present: normal affect, normal mood Skin exam: Present: warm, intact, normal color Course Vital Signs 10/03/19 10/03/19 10/03/19 16:30 17:34 18:45 Temperature 98.1 F Pulse Rate 72 62 Respiratory 18 20 20 Rate Blood Pressure 109/69 117/83 O2 Sat by Pulse 100 96 Oximetry Chest Pain MDM - Differential Diagnosis ACS, Pleurisy-Other - MDM Patient is 64-year-old female with history of COPD is presenting to the emergency department with a chief complaint of chest pain. Physical examination indicates in nonreproducible chest pain that only appears to be pleuritic in nature. Patient has an oxygen saturation of 97. Chest x-ray is unremarkable. EKG shows normal sinus rhythm with ST depression in lead 2 and lead 3. Patient given aspirin in the ED. Initial troponin is negative. Rest of labs are unremarkable. Patient has a HEART score 5. Patient will be admitted for serial troponins. Case discussed with Dr. Serna. Admitting physician is Dr. Reed. Cardiology consulted. Disposition Clinical Impression: Chest pain Disposition: ADMITTED IP TO THIS HOSP Condition: Stable Instructions (If sedation given, give patient instructions): Chest Pain (ED) Additional Instructions: Patient will be admitted Is patient prescribed a controlled substance at d/c from ED?: No Referrals: Emmie Thakur MD [Primary Care Provider] - 1-2 days Time of Disposition: 18:58
[2019-10-03 17:03] LABS: Basophils # (A) 0.1 k/uL (0-0.2); Basophils % (A) 1 %; Eosinophils # (A) 0.3 k/uL (0-0.7); Eosinophils % (A) 3 %; HCT 43.3 % (34.0-46.0); HGB 14.5 gm/dL (11.4-16.0); Lymphocytes # (A) 2.8 k/uL (1.0-4.8); Lymphocytes % (A) 30 %; MCHC 33.4 g/dL (31.0-37.0); MCV 95.9 fL (80.0-100.0); Mean Platelet Volume 5.7; Monocytes # (A) 0.3 k/uL (0-1.0); Monocytes % (A) 3 %; Neutrophils # (A) 5.6 k/uL (1.3-7.7); Neutrophils % (A) 61 %; Platelet Count 301 k/uL (150-450); RBC 4.52 m/uL (3.80-5.40); RDW 13.3 % (11.5-15.5); WBC 9.2 k/uL (3.8-10.6)
[2019-10-03 17:13] LABS: ALT 43 U/L (9-52); AST 30 U/L (14-36); African American GFR (CKD) >90 (>60 ml/min/1.73 sqM); Albumin 4.2 g/dL (3.5-5.0); Alkaline Phosphatase 125 U/L (38-126); Anion Gap 9 mmol/L; Blood Urea Nitrogen 13 mg/dL (7-17); Calcium 9.3 mg/dL (8.4-10.2); Carbon Dioxide 26 mmol/L (22-30); Chloride 105 mmol/L (98-107); Glucose 112 mg/dL (74-99); Magnesium 2.1 mg/dL (1.6-2.3); Non-African American GFR(CKD) >90 (>60 ml/min/1.73 sqM); Potassium 4.1 mmol/L (3.5-5.1); Sodium 140 mmol/L (137-145); Total Bilirubin 0.2 mg/dL (0.2-1.3); Total Protein 7.1 g/dL (6.3-8.2)
[2019-10-03 17:17] LABS: D-Dimer 0.42 mg/L FEU (<0.60); INR 0.9 (<1.2); Partial Thromboplastin Time 23.5 sec (22.0-30.0); Prothrombin Time 9.5 sec (9.0-12.0)
--- NOTE | 2019-10-03 17:35 | XR ---
EXAMINATION TYPE: XR chest 2V DATE OF EXAM: 10/03/2019 COMPARISON: The first 2018 HISTORY: Chest pain TECHNIQUE: Frontal and lateral views of the chest are obtained. FINDINGS: There is no heart failure nor confluent pneumonic infiltrate. Costophrenic angles are kimberley r. There are chest leads. Bony thorax is intact. IMPRESSION: No active cardiopulmonary disease. Normal heart. No change.
[2019-10-03] MEDS ORDERED: ACETAMINOPHEN TAB 325 MG TAB PO PRN (18:53)
[2019-10-03] MEDS ORDERED: MORPHINE SULFATE 4 MG/ML SYRINGE IV PRN (18:53)
[2019-10-03] MEDS ORDERED: NALOXONE 0.4 MG/ML 1 ML VIAL IV PRN (18:53)
[2019-10-03] MEDS ORDERED: HYDROcodone/APAP 5-325MG 1 EACH TAB PO PRN (18:53)
[2019-10-03] MEDS ORDERED: IBUPROFEN 400 MG TAB PO PRN (18:53)
[2019-10-03] MEDS ORDERED: oxyCODONE-APAP 5-325MG 1 EACH TAB PO PRN (18:53)
[2019-10-03 20:32] VITALS: RESP 18
[2019-10-03 21:49] VITALS: BMI 24.7
[2019-10-04] MEDS ORDERED: IPRATROPIUM-ALBUTEROL 3 ML NEB INHALATION PRN (00:22)
[2019-10-04] MEDS ORDERED: LEVOFLOXACIN 500MG-D5W PMX 500 MG in DEXTROSE/WATER 1 100ML.BAG IVPB SCH (01:00)
[2019-10-04] MEDS: methylPREDNISolone SOD SUCCI 125 MG/2 ML VIAL IV SCH ×2 (01:31→05:05)
[2019-10-04 06:42] LABS: Glucose,Whole Blood 140 mg/dL (75-99)
[2019-10-04] MEDS ORDERED: INSULIN ASPART (NovoLOG) 100 UNIT/ML VIAL SQ SCH (07:30)
[2019-10-04] MEDS ORDERED: PANTOPRAZOLE 40 MG TABLET PO SCH (07:30)
[2019-10-04] MEDS: IPRATROPIUM-ALBUTEROL 3 ML NEB INHALATION SCH ×2 (08:43→11:29)
--- NOTE | 2019-10-04 09:02 | US ---
EXAMINATION TYPE: US carotid duplex BILAT DATE OF EXAM: 10/04/2019 COMPARISON: NONE CLINICAL HISTORY: left carotid bruit . No hx TIA, smoker, no HTN EXAM MEASUREMENTS: RIGHT: Peak Systolic Velocity (PSV) cm/sec ----- Right CCA: 95.8 ----- Right ICA: 80.1 ----- Right ECA: 112.2 ICA/CCA ratio: 0.8 RIGHT: End Diastole cm/sec ----- Right CCA: 33.3 ----- Right ICA: 29.6 ----- Right ECA: 15.6 LEFT: Peak Systolic Velocity (PSV) cm/sec ----- Left CCA: 139.9 ----- Left ICA: 95.1 ----- Left ECA: 98.4 ICA/CCA ratio: 0.7 LEFT: End Diastole cm/sec ----- Left CCA: 47.8 ----- Left ICA: 19.2 ----- Left ECA: 9.5 VERTEBRALS (direction of flow): Right Vertebral: Antegrade Left Vertebral: Antegrade Rhythm: Normal Bilateral wall thickening. No significant stenosis. Small amount of plaque in bilateral bulbs. IMPRESSION: Mild degree of grayscale atheromatous plaquing with no sonographically evident hemodynam ically significant stenosis within either visualized carotid arterial system. Criteria for Assigning % of Stenosis / Diameter reduction (Estimation based on the indirect measurements of the internal carotid artery velocities (ICA PSV). 1. Normal (no stenosis)=ICA PSV < 125 cm/s: ratio < 2.0: ICA EDV<40 cm/s. 2. Less than 50% stenosis=ICA PSV < 125 cm/s: ratio < 2.0: ICA EDV<40 cm/s. 3. 50 to 69% stenosis=ICA PSV of 125 to 230 cm/s: ration 2.0 ? 4.0: ICA EDV 40-100 cm/s. 4. Greater than 70% stenosis to near occlusion= ICA PSV > 230 cm/s: ratio > 4.0: ICA EDV > 100 cm/s. 5. Near occlusion= ICA PSV velocities may be low or undetectable: variable ratio and ICA EDV. 6. Total occlusion=unable to detect flow.
--- NOTE | 2019-10-04 09:54 | HP ---
HISTORY AND PHYSICAL DATE OF SERVICE: 10/04/2019 CHIEF COMPLAINT: Chest pain. HISTORY OF PRESENT ILLNESS: This 64-year-old woman with a past medical history of multiple medical problems including history of COPD, GERD, hyperlipidemia, history of DJD, history of appendectomy, history of bladder surgery, anxiety, depression, being followed by Dr. Emmie Thakur in the outpatient setting was complaining of chest pain. The pain was felt mostly in the left side of the chest radiating to the back, which increases respiration. Patient has some cough also. The patient apparently was smoking 2 packs per day and the patient was admitted to the hospital for further evaluation and treatment. There is no history of fever, rigors or chills. No history of headaches, loss of consciousness or seizures at this time. PAST MEDICAL HISTORY: History of COPD, GERD, hyperlipidemia, history of DJD, history of appendectomy, history of anxiety, depression. MEDICATIONS: Prior to admission include home medications are vitamin D2, aspirin 81 mg p.o. daily. ALLERGIES: LATEX, BACTRIM, LIPITOR. FAMILY HISTORY: History of CVA, TIA, DJD, lung cancer, cirrhosis in the family. SOCIAL HISTORY: History of smoking, continued ongoing. No history of alcohol intake. REVIEW OF SYSTEMS: ENT: No diminished vision. No diminished hearing. CARDIOVASCULAR: As mention earlier. RESPIRATORY: As mentioned earlier. GI no nausea or vomiting. no dysuria or hematuria. CENTRAL NERVOUS SYSTEM: No numbness or weakness. ALLERGY/IMMUNOLOGY: No asthma or hayfever. HEMATOLOGY/ONCOLOGY: No history of anemia. ENDOCRINE: No history of diabetes or hypothyroidism. CONSTITUTIONAL: As mentioned earlier. DERMATOLOGY: Negative. RHEUMATOLOGY negative. PSYCHIATRY as mentioned earlier. PHYSICAL EXAMINATION: Alert and oriented times three. Pulse 74, blood pressure 129/80, respiration 18, temperature 98.7, pulse ox 98% on room air. HEENT is conjunctivae normal. NECK is no jugular venous distention. No carotid bruit. No lymph node enlargement. Cardiovascular system: S1, S2 muffled. No S3, no S4. RESPIRATORY: Breath sounds diminished in the bases. Bilateral scattered rhonchi and crackles. Expiratory wheezing also present. ABDOMEN: Soft, nontender. No mass palpable. LEGS: No edema and no swelling. NERVOUS SYSTEM: Higher functions as mentioned earlier. Moves all 4 limbs. No focal motor and sensory deficit. LYMPHATICS: No lymph nodes palpable in the neck, axilla and groin. JOINTS: No active deforming arthropathy. LABS: CBC within normal limits. Glucose 112. ASSESSMENT: 1. Chest pain possible unstable angina possible pleuritic chest pain. 2. Chronic obstructive pulmonary disease acute exacerbation with acute purulent tracheobronchitis. 3. Continued ongoing nicotine dependence. 4. Gastroesophageal reflux disease. 5. Hyperlipidemia. 6. History of degenerative joint disease. 7. History of known MED ALLERGIES. 8. History of appendectomy. 9. History of cholecystectomy. 10.History of anxiety, depression. 11.History of THC. 12.FULL CODE. RECOMMENDATIONS AND DISCUSSION: In this 64-year-old woman who presented with multiple medical issues, at this time, I recommend to continue current medications, symptomatic treatment. Otherwise, unstable angina protocol. Cardiology consultation. Possible stress test. Otherwise, I would also recommend bronchodilators and symptomatic treatment of the pain also. The prognosis is guarded because of multiple complex medical issues. Further recommendations to follow. A copy of this dictation being forwarded to Dr. Emmie Thakur who is the primary physician. MMODL / IJN: [id number] /
--- NOTE | 2019-10-04 11:18 | CONS ---
CONSULTATION Dnaa Hauser is a 64-year-old lady with a known history of smoking and COPD. She smokes 2-3 packs a day and also has underlying COPD. She also takes losartan for her hyperlipidemia. She has had a stress test in the past, but it is more than 5-6 years ago. In December of last year, she had a CT angio of the chest as well as an echocardiogram, both of these were unremarkable. She is here because she had an episode of chest discomfort. The quality of the pain seems very atypical. She tried to lift something 2 days ago when she bent down next to her and she tried to pull something and experienced the pain in the left lateral aspect of the chest, lateral to her left breast area. This is the same pain that seems to get worse when she takes a deep breath. The quality of the pain is musculoskeletal, atypical and sometimes reproducible on pressure. She is asymptomatic at the time of my evaluation. Her troponins are normal. She is resting comfortably without symptoms. PAST MEDICAL HISTORY: Past medical history is remarkable for smoking, COPD, and also hyperlipidemia. The patient is status post spontaneous pneumothorax in the past. Has had history of cholecystectomy, appendectomy, uterine ablation and hysterectomy. MEDICATIONS: At home include [place] sometimes for pain and naproxen, Lipitor 40 mg daily, aspirin 81 mg daily, vitamin D supplements. ALLERGIES: SHE IS ALLERGIC TO SULFA AND LATEX. PHYSICAL EXAMINATION: On examination, blood pressure is 110/70. Pulse rate 70 per minute and regular. HEENT unremarkable. Fundus was not examined by me. Neck is supple. No JVD. There is a left carotid bruit. Heart exam reveals S1, S2 heard normally. No rub, murmur or gallop. There is some tenderness in the left lateral aspect of the chest. Abdomen is soft, nontender. Lower extremities reveal normal pulses. No edema. Central system is normal. EKG revealed sinus mechanism, no acute changes. The patient's physical exam is unremarkable except for a left carotid bruit. IMPRESSION: 1. Atypical chest pain. 2. Smoking and chronic obstructive pulmonary disease. 3. Probable musculoskeletal chest pain left lateral breast area tenderness. 4. Left carotid bruit. RECOMMENDATIONS: Pain is atypical. Troponins are normal. Advised that she can be discharged and I will see her as an outpatient and once her musculoskeletal pain is resolved, we will consider stress testing. She has been counseled to work with smoking cessation. I will do a carotid ultrasound in view of the asymptomatic bruit. Discussed my thoughts in detail with the patient. Thank you very much for the consult. NOMI / STEF: [id number] /
[2019-10-04 11:55] LABS: Glucose,Whole Blood 196 mg/dL (75-99)
[2019-10-04 12:25] VITALS: BP 119/77; PULSE 98; TEMP 98.3
--- NOTE | 2019-10-05 08:53 | DS ---
DISCHARGE SUMMARY FINAL DIAGNOSES: 1. Chest pain possible musculoskeletal or pleuritic chest pain, the stress test was negative. 2. Chronic obstructive pulmonary disease acute exacerbation, acute purulent tracheobronchitis. 3. Continued ongoing nicotine dependence. 4. History of gastroesophageal reflux disease. 5. Hyperlipidemia. 6. History of degenerative joint disease. 7. History of medication allergies. 8. History of appendectomy. 9. History of cholecystectomy. 10.History of anxiety, depression. 11.History of THC. 12.FULL CODE. DISCHARGE DISPOSITION: The patient will be discharged in stable condition with guarded prognosis. HISTORY OF PRESENT ILLNESS: This 64-year-old woman was admitted with chest pain, history of . The patient was evaluated by Cardiology and recommended outpatient followup. On exam, vitals are stable. CARDIOVASCULAR: S1, S2 muffled. ABDOMEN: Soft. NERVOUS SYSTEM: No focal deficits. Patient also given bronchodilators and antibiotics. Also recommend the patient to follow up closely with Cardiology for possible outpatient stress test. On exam, vitals are stable. CARDIOVASCULAR: S1, S2 muffled. RESPIRATION: A few rhonchi. NERVOUS SYSTEM: No focal deficits. DISCHARGE ADVICE: 1. Diet is cardiac. 2. Activity limited until followup. 3. Follow up with Dr. Emmie Thakur 2-3 days. 4. Follow up with Cardiology as recommended. Medications are: 1. Ecotrin 81 mg p.o. daily. 2. Vitamin D2, 50,000 p.o. Friday. 3. Levaquin 500 mg p.o. for 3 days. 4. Motrin 200 mg q.6 p.r.n. 5. Prednisone 40 mg daily for 3 days, 30 for 3 days, 20 for 3 days, 10 for 3 days. 6. Albuterol p.r.n. 7. Tylenol 650 q.6 p.r.n. Once again, the patient will be discharged in stable condition with guarded prognosis. MMODL / IJN: [id number] / MTDD
== END 2019-10-04 12:42 ==
LOC: EC 16:23 → 1SOBS 18:48
PROVIDERS: ADMIT Hospitalist; ATTEND Hospitalist
DX: R07.89 Other chest pain (principal); J44.1 Chronic obstructive pulmonary disease with (acute) exacerbation; J44.0 Chronic obstructive pulmonary disease with (acute) lower respiratory infection; J20.9 Acute bronchitis, unspecified; F17.210 Nicotine dependence, cigarettes, uncomplicated; R09.89 Other specified symptoms and signs involving the circulatory and respiratory systems; E78.00 Pure hypercholesterolemia, unspecified; K21.9 Gastro-esophageal reflux disease without esophagitis; E78.5 Hyperlipidemia, unspecified; M19.90 Unspecified osteoarthritis, unspecified site; F41.9 Anxiety disorder, unspecified; F32.9 Major depressive disorder, single episode, unspecified; Z79.82 Long term (current) use of aspirin; Z79.1 Long term (current) use of non-steroidal anti-inflammatories (NSAID); Z79.891 Long term (current) use of opiate analgesic; Z79.899 Other long term (current) drug therapy; Z88.1 Allergy status to other antibiotic agents; Z91.040 Latex allergy status; Z88.2 Allergy status to sulfonamides; Z87.09 Personal history of other diseases of the respiratory system; Z85.038 Personal history of other malignant neoplasm of large intestine; Z90.49 Acquired absence of other specified parts of digestive tract; Z90.710 Acquired absence of both cervix and uterus; Z80.1 Family history of malignant neoplasm of trachea, bronchus and lung; Z82.5 Family history of asthma and other chronic lower respiratory diseases; Z82.61 Family history of arthritis; Z82.3 Family history of stroke; Z83.79 Family history of other diseases of the digestive system; Z83.511 Family history of glaucoma
CPT/HCPCS: 96365; 96375 ×2; 96376; 99285; 36415; 94640; 93005; 85379; 80053; 83735; 84484 ×2; 85025; 85610; 85730; 71046; 93880; G0378 ×2; J2270; J2930; J1956

== ENCOUNTER 2019-11-05 00:06 | Emergency (ER) | payer OTHER ==
--- NOTE | 2019-11-05 00:21 | ED ---
Chest Pain HPI - General Chief Complaint: Chest Pain Stated Complaint: Chest Pain Time Seen by Provider: 11/05/19 00:20 Source: patient, family Mode of arrival: wheelchair Limitations: no limitations - History of Present Illness MD Complaint: chest pain -: hour(s) Onset: during rest Pain Location: right chest Pain Radiation: neck Severity: moderate Quality: tightness Consistency: now resolved Improves With: nothing Worsens With: nothing Treatments Prior to Arrival: none - Related Data Home Medications Medication Instructions Recorded Confirmed Aspirin [Adult Low Dose Aspirin EC] 81 mg PO DAILY 03/29/19 10/03/19 Ergocalciferol (Vitamin D2) 50,000 unit PO CUEVA 03/29/19 10/03/19 [Vitamin D2] Previous Rx's Medication Instructions Recorded Acetaminophen Tab [Tylenol] 650 mg PO Q6HR PRN tab 10/04/19 Albuterol Sulfate [Proair Hfa] 2 puff INHALATION Q6HR #1 inhaler 10/04/19 Ibuprofen [Motrin] 400 mg PO Q6HR PRN #20 tab 10/04/19 Levofloxacin [Levaquin] 500 mg PO DAILY 3 Days #3 tab 10/04/19 predniSONE 10 mg PO DIRECTED #30 tab 10/04/19 Allergies Allergy/AdvReac Type Severity Reaction Status Date / Time latex Allergy Rash/Hives Verified 11/05/19 00:12 sulfamethoxazole Allergy Rash/Hives Verified 11/05/19 00:12 [From Bactrim] trimethoprim [From Bactrim] Allergy Rash/Hives Verified 11/05/19 00:12 atorvastatin [From Lipitor] AdvReac MUSCLE PAIN Verified 11/05/19 00:12 Review of Systems ROS Statement: Those systems with pertinent positive or pertinent negative responses have been documented in the HPI. ROS Other: All systems not noted in ROS Statement are negative. Constitutional: Denies: fever, chills Respiratory: Denies: cough, dyspnea Cardiovascular: Reports: as per HPI, chest pain. Denies: palpitations, orthopnea, edema, syncope Gastrointestinal: Denies: abdominal pain, nausea, vomiting, diarrhea Genitourinary: Denies: dysuria, hematuria Musculoskeletal: Denies: back pain Skin: Denies: rash Neurological: Denies: headache, weakness EKG Findings - EKG Results: EKG: interpreted by YINA WNL, sinus rhythm (Rate 60 bpm), normal axis, normal QRS, normal ST/T - [place], Pacemaker, Normal: Normal tracing: normal tracing Past Medical History Past Medical History: COPD, GERD/Reflux, Hyperlipidemia, Osteoarthritis (OA) Additional Past Medical History / Comment(s): PRE CA UTERINE, CHEST TUBE X1 SPONTANEOUS PNEUMOTHORAX X2, HX ENVIRONMENTAL ALLERGIES., 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 History of Any Multi-Drug Resistant Organisms: None Reported Past Surgical History: Appendectomy, Bladder Surgery, Section, Cholecystectomy, Hysterectomy, Uterine Ablation Additional Past Surgical History / Comment(s): shaheed 06-16-19, COLONOSCOPY POLYPECTOMY, EGD, RT WRIST GANGLION CYST REMOVED., PARTIAL HYSTERECTOMY (HAS OVARIES). Past Anesthesia/Blood Transfusion Reactions: No Reported Reaction, Family Hist ory of Problems w/ Anesthesia Additional Past Anesthesia/Blood Transfusion Reaction / Comment(s): mother had problems coming out of anesthesia. no problems with prior blood transfusions Past Psychological History: Anxiety, Depression Smoking Status: Current every day smoker Past Alcohol Use History: Rare Past Drug Use History: Marijuana - Past Family History Father Family Medical History: Cancer, CVA/TIA, Osteoarthritis (OA) Additional Family Medical History / Comment(s): LUNG CA AND CIRRHOSIS. Mother Family Medical History: COPD, Osteoarthritis (OA) Additional Family Medical History / Comment(s): GLAUCOMA General Exam Limitations: no limitations General appearance: alert, in no apparent distress Head exam: Present: atraumatic, normocephalic Eye exam: Present: normal appearance. Absent: scleral icterus, conjunctival injection ENT exam: Present: normal oropharynx Respiratory exam: Present: normal lung sounds bilaterally. Absent: respiratory distress, wheezes, rales, rhonchi, stridor Cardiovascular Exam: Present: regular rate, normal rhythm, normal heart sounds. Absent: systolic murmur, diastolic murmur, rubs, gallop GI/Abdominal exam: Present: soft. Absent: distended, tenderness, guarding, rebound, rigid, mass Extremities exam: Present: normal inspection, normal capillary refill. Absent: pedal edema, calf tenderness Back exam: Present: normal inspection. Absent: CVA tenderness (R), CVA tenderness (L) Neurological exam: Present: alert Skin exam: Present: warm, dry, intact, normal color. Absent: rash Course Vital Signs 11/05/19 11/05/19 11/05/19 00:10 00:24 01:31 Temperature 98.1 F Pulse Rate 64 60 61 Respiratory 20 16 16 Rate Blood Pressure 157/78 128/85 113/77 O2 Sat by Pulse 99 100 100 Oximetry Chest Pain MDM - MDM This patient is a 64-year-old woman presenting with episode of chest pain that has resolved. It does have mixture of typical and some typical features. Patient's initial workup is negative and I discussed results with her and recommendation for serial cardiac enzymes and telemetry monitoring. The patient at this time is refusing, stating that her symptoms have resolved. She does understand the risk of missed [place], disability and . She states she will return immediately should any symptoms recur. She states that otherwise she was going to have follow-up with Dr. Nette Becker, in relation to her last admission here for chest pain and she plans to see him. Disposition Clinical Impression: Chest pain Disposition: HOME SELF-CARE Condition: Good Instructions (If sedation given, give patient instructions): Chest Pain (ED) Is patient prescribed a controlled substance at d/c from ED?: No Referrals: Emmie Thakur MD [Primary Care Provider] - 1-2 days
[2019-11-05 00:54] LABS: Basophils # (A) 0.1 k/uL (0-0.2); Basophils % (A) 1 %; Eosinophils # (A) 0.3 k/uL (0-0.7); Eosinophils % (A) 3 %; HCT 43.2 % (34.0-46.0); HGB 14.2 gm/dL (11.4-16.0); Lymphocytes # (A) 3.7 k/uL (1.0-4.8); Lymphocytes % (A) 39 %; MCH 31.6 pg (25.0-35.0); MCHC 32.8 g/dL (31.0-37.0); MCV 96.4 fL (80.0-100.0); Mean Platelet Volume 6.5; Monocytes # (A) 0.4 k/uL (0-1.0); Monocytes % (A) 4 %; Neutrophils # (A) 4.8 k/uL (1.3-7.7); Neutrophils % (A) 51 %; Platelet Count 298 k/uL (150-450); RBC 4.48 m/uL (3.80-5.40); RDW 13.2 % (11.5-15.5); WBC 9.4 k/uL (3.8-10.6)
[2019-11-05 01:01] LABS: ALT 30 U/L (9-52); AST 28 U/L (14-36); African American GFR (CKD) >90 (>60 ml/min/1.73 sqM); Albumin 4.6 g/dL (3.5-5.0); Alkaline Phosphatase 102 U/L (38-126); Anion Gap 10 mmol/L; Blood Urea Nitrogen 16 mg/dL (7-17); Calcium 9.7 mg/dL (8.4-10.2); Carbon Dioxide 26 mmol/L (22-30); Chloride 101 mmol/L (98-107); Glucose 95 mg/dL (74-99); Non-African American GFR(CKD) 88 (>60 ml/min/1.73 sqM); Potassium 4.2 mmol/L (3.5-5.1); Sodium 137 mmol/L (137-145); Total Bilirubin 0.4 mg/dL (0.2-1.3); Total Protein 7.5 g/dL (6.3-8.2)
--- NOTE | 2019-11-05 01:01 | XR ---
EXAMINATION TYPE: XR chest 2V DATE OF EXAM: 11/05/2019 COMPARISON: 10/03/2019 HISTORY: Chest pain TECHNIQUE: Frontal and lateral views of the chest are obtained. FINDINGS: Heart and mediastinum are normal. Lungs are clear. Diaphragm is normal. Bony thorax appear s normal. There are chest leads. There is mild pleural scarring at the lung apices. IMPRESSION: No active cardiopulmonary disease. No change.
[2019-11-05 02:25] VITALS: BP 122/83; PULSE 65; RESP 20; TEMP 97.7
== END 2019-11-05 02:20 | disposition home or self-care (01) ==
LOC: EC 00:06
DX: R07.9 Chest pain, unspecified (principal); I10 Essential (primary) hypertension; F17.200 Nicotine dependence, unspecified, uncomplicated; Z79.82 Long term (current) use of aspirin; Z91.040 Latex allergy status; Z88.1 Allergy status to other antibiotic agents; Z88.2 Allergy status to sulfonamides; Z88.8 Allergy status to other drugs, medicaments and biological substances
CPT/HCPCS: 36415; 71046; 80053; 83735; 84484; 85025; 93005; 99285

== ENCOUNTER 2020-05-01 20:46 | Observation (INO) | payer MEDICARE, OTHER ==
[2020-05-01] MEDS ORDERED: ONDANSETRON 4 MG/2 ML VIAL IVP STA (21:25)
[2020-05-01] MEDS ORDERED: SODIUM CHLORIDE 0.9% 1,000 ML IV ONE (21:25)
[2020-05-01 21:56] LABS: Basophils # (A) 0.1 k/uL (0-0.2); Basophils % (A) 1 %; Eosinophils # (A) 0.4 k/uL (0-0.7); Eosinophils % (A) 4 %; HCT 44.1 % (34.0-46.0); HGB 14.2 gm/dL (11.4-16.0); Lymphocytes # (A) 2.7 k/uL (1.0-4.8); Lymphocytes % (A) 27 %; MCH 31.6 pg (25.0-35.0); MCHC 32.3 g/dL (31.0-37.0); MCV 97.9 fL (80.0-100.0); Mean Platelet Volume 7.2; Monocytes # (A) 0.4 k/uL (0-1.0); Monocytes % (A) 4 %; Neutrophils # (A) 6.5 k/uL (1.3-7.7); Neutrophils % (A) 63 %; Platelet Count 277 k/uL (150-450); RBC 4.51 m/uL (3.80-5.40); RDW 12.9 % (11.5-15.5); WBC 10.3 k/uL (3.8-10.6)
[2020-05-01 22:17] LABS: ALT 16 U/L (4-34); AST 26 U/L (14-36); African American GFR (CKD) >90 (>60 ml/min/1.73 sqM); Albumin 4.6 g/dL (3.5-5.0); Alkaline Phosphatase 110 U/L (38-126); Anion Gap 8 mmol/L; Blood Urea Nitrogen 10 mg/dL (7-17); Calcium 9.7 mg/dL (8.4-10.2); Carbon Dioxide 26 mmol/L (22-30); Chloride 103 mmol/L (98-107); Glucose 109 mg/dL (74-99); Non-African American GFR(CKD) >90 (>60 ml/min/1.73 sqM); Sodium 137 mmol/L (137-145); Total Bilirubin 0.4 mg/dL (0.2-1.3); Total Protein 7.4 g/dL (6.3-8.2)
--- NOTE | 2020-05-01 22:25 | FL ---
EXAMINATION TYPE: FL single contrast barium swallow DATE OF EXAM: 05/01/2020 CLINICAL INDICATION: 64 year-old female history of Shama fundoplication on October 2019, unable to swallow. COMPARISON: 08/05/2019 Total Fluoroscopy Time: 2 minutes 30 seconds. Total Images: 25 FINDINGS: The swallowing mechanism is normal and hypopharyngeal anatomy is preserved. There are only a total of 4 swallows during the exam. There is a moderate to severe obstruction at the level of the GE junction that allows only occasional intermittent passage of a narrow stream of contrast into the stomach. The majority of contrast remai ns within the esophagus with vigorous episodes of recurrent intraesophageal reflux. There is pooling of contrast up to the thoracic inlet after only 2 swallows. No recurrent hiatal hernia is clearly identified on this study. IMPRESSION: 1. Very tight GE junction resulting in a moderate to severe obstruction with pooling of contrast up t o the thoracic inlet after only 2 swallows. 2. Resultant recurrent episodes of intraesophageal reflux. 3. Occasional intermittent passage of a narrow stream of contrast into the stomach. Consider postoper ative stenosis at the Shama site or developing achalasia. 4. No recurrent hiatal hernia is clearly seen on this study.
[2020-05-01] MEDS ORDERED: NALOXONE 0.4 MG/ML 1 ML VIAL IV PRN (22:50)
[2020-05-01] MEDS ORDERED: ONDANSETRON 4 MG/2 ML VIAL IVP PRN (22:50)
--- NOTE | 2020-05-01 22:52 | ED ---
General Adult HPI <Fortunato Robin - Last Filed: 05/01/20 22:53> - General Source: patient, family Mode of arrival: ambulatory Limitations: no limitations <Blanka Hdz - Last Filed: 05/02/20 02:49> - General Chief complaint: ENT Stated complaint: ENT,Chest pain Time Seen by Provider: 05/01/20 21:07 - History of Present Illness Initial comments: 64-year-old female patient presents to the emergency department today for evaluation of difficulty swallowing. Patient states that in the middle the n ight last night she woke up with discomfort in her chest and back. She states that since that time she has been unable to swallow and keep down food or fluids. States when she swallows anything it feels like it gets stuck in her chest and then she immediately vomits it back up. Patient states that she did eat dinner yesterday evening without difficulty. States she did drink some water before bed without difficulty. States today she did attempt to drink some water which was unsuccessful. States she also tried to eat a piece of bread which was unsuccessful. She denies any abdominal pain or discomfort. Denies dizziness or weakness. Denies any hematemesis. Denies shortness of breath, t ongue, or throat swelling. Patient did undergo Shama fundoplication with Dr. Medellin and August of last year. States that she has been doing well since. Patient denies any recent rash, fever, chills, diarrhea, constipation, back pain, numbness, tingling, dizziness, weakness, hematuria, dysuria, urinary urgency, urinary frequency, headache, visual changes, or any other complaints. (Blanka Hdz) - Related Data Home Medications Medication Instructions Recorded Confirmed Aspirin [Adult Low Dose Aspirin EC] 81 mg PO DAILY 03/29/19 05/02/20 Ergocalciferol (Vitamin D2) 50,000 unit PO CUEVA 03/29/19 05/02/20 [Vitamin D2] Atorvastatin Calcium [Lipitor] 40 mg PO RT-HS 05/02/20 05/02/20 Multivit-Min/Iron/Folic/Lutein 1 each PO DAILY 05/02/20 05/02/20 [Centrum Silver Women Tablet] Previous Rx's Medication Instructions Recorded Acetaminophen Tab [Tylenol] 650 mg PO Q6HR PRN tab 11/04/19 Albuterol Sulfate [Proair Hfa] 2 puff INHALATION Q6HR #1 inhaler 10/04/19 Allergies Allergy/AdvReac Type Severity Reaction Status Date / Time latex Allergy Rash/Hives Verified 05/01/20 20:59 sulfamethoxazole Allergy Rash/Hives Verified 05/01/20 20:59 [From Bactrim] trimethoprim [From Bactrim] Allergy Rash/Hives Verified 05/01/20 20:59 Review of Systems ROS Other: All systems not noted in ROS Statement are negative. <Fortunato Robin - Last Filed: 05/01/20 22:53> ROS Other: All systems not noted in ROS Statement are negative. <Blanka Hdz - Last Filed: 05/02/20 02:49> ROS Statement: Those systems with pertinent positive or pertinent negative responses have been documented in the HPI. Past Medical History Past Medical History: COPD, GERD/Reflux, Hyperlipidemia, Osteoarthritis (OA) Additional Past Medical History / Comment(s): PRE CA UTERINE, CHEST TUBE X1 SPONTANEOUS PNEUMOTHORAX X2, HX ENVIRONMENTAL ALLERGIES., STATES HX OF PRE-CANCEROUS COLON POLYPS. History of Any Multi-Drug Resistant Organisms: None Reported Past Surgical History: Appendectomy, Bladder Surgery, Section, Ch olecystectomy, Hysterectomy, Uterine Ablation Additional Past Surgical History / Comment(s): shaheed 06-16-, COLONOSCOPY POLYPECTOMY, EGD, RT WRIST GANGLION CYST REMOVED., PARTIAL HYSTERECTOMY (HAS OVARIES). Past Anesthesia/Blood Transfusion Reactions: No Reported Reaction, Family History of Problems w/ Anesthesia Additional Past Anesthesia/Blood Transfusion Reaction / Comment(s): mother had problems coming out of anesthesia. no problems with prior blood transfusions Past Psychological History: Anxiety, Depression Smoking Status: Current every day smoker Past Alcohol Use History: Rare Past Drug Use History: Marijuana - Past Family History Father Family Medical History: Cancer, CVA/TIA, Osteoarthritis (OA) Additional Family Medical History / Comment(s): LUNG CA AND CIRRHOSIS. Mother Family Medical History: COPD, Osteoarthritis (OA) Additional Family Medical History / Comment(s): GLAUCOMA <Blanka Hdz - Last Filed: 05/02/20 02:49> General Exam Limitations: no limitations General appearance: alert, in no apparent distress, other (This is a well- developed, well-nourished adult female patient in no acute distress. Vital signs upon presentation are temperature 99.2F, pulse 76, respirations 18, blood pressure 142/84, pulse ox 99% on room air.) Eye exam: Present: normal appearance, PERRL, EOMI. Absent: scleral icterus, conjunctival injection, periorbital swelling ENT exam: Present: normal exam, normal oropharynx, mucous membranes moist Respiratory exam: Present: normal lung sounds bilaterally. Absent: respiratory distress, wheezes, rales, rhonchi, stridor Cardiovascular Exam: Present: regular rate, normal rhythm, normal heart sounds. Absent: systolic murmur, diastolic murmur, rubs, gallop, clicks GI/Abdominal exam: Present: soft, normal bowel sounds. Absent: distended, tenderness, guarding, rebound, rigid Neurological exam: Present: alert, oriented X3, CN II-XII intact Psychiatric exam: Present: normal affect, normal mood Skin exam: Present: warm, dry, intact, normal color. Absent: rash <Blanka Hdz - Last Filed: 05/02/20 02:49> Course <Fortunato Robin - Last Filed: 05/01/20 22:53> Vital Signs 05/01/20 05/01/20 05/01/20 20:52 22:40 23:30 Temperature 99.2 F 98.3 F Pulse Rate 76 78 Respiratory 18 16 16 Rate Blood Pressure 142/84 105/77 O2 Sat by Pulse 99 97 Oximetry - Reevaluation(s) Reevaluation #1: 05/01/20 22:53 OLIVE GROWER supervision: Patient case was reviewed patient does have complaints of diff iculty swallowing. He does demonstrate evidence of a stricture at the GE junction. The case was discussed with Dr. Medellin. Patient be admitted (Fortunato Robin) Medical Decision Making - Lab Data Result diagrams: 05/01/20 21:30 05/01/20 21:30 <Fortunato Robin - Last Filed: 05/01/20 22:53> - Lab Data Result diagrams: 05/01/20 21:30 05/01/20 21:30 - Radiology Data Radiology results: report reviewed, image reviewed <Blanka Hdz - Last Filed: 05/02/20 02:49> - Medical Decision Making 64-year-old female patient presents to the emergency department today for evaluation of difficulty swallowing and immediate regurgitation of any ingested food or fluids. Physical examination reveals a soft nontender abdomen. Vital signs are unremarkable. Patient underwent labs which were unremarkable. Barium swallow was performed and showed severe obstruction at the gastroesophageal junction. I did discuss the case with on-call surgeon Dr. Medellin who also performed the patient's fundoplication in August. She will be admitted to the hospital with IV fluids, nausea medication, she will remain nothing by mouth. He will evaluate the patient in the morning. (Blanka Hdz) - Lab Data Lab Results 05/01/20 05/01/20 Range/Units 21:30 21:30 WBC 10.3 (3.8-10.6) k/uL RBC 4.51 (3.80-5.40) m/uL Hgb 14.2 (11.4-16.0) gm/dL Hct 44.1 (34.0-46.0) % MCV 97.9 (80.0-100.0) fL MCH 31.6 (25.0-35.0) pg MCHC 32.3 (31.0-37.0) g/dL RDW 12.9 (11.5-15.5) % Plt Count 277 (150-450) k/uL Neutrophils % 63 % Lymphocytes % 27 % Monocytes % 4 % Eosinophils % 4 % Basophils % 1 % Neutrophils # 6.5 (1.3-7.7) k/uL Lymphocytes # 2.7 (1.0-4.8) k/uL Monocytes # 0.4 (0-1.0) k/uL Eosinophils # 0.4 (0-0.7) k/uL Basophils # 0.1 (0-0.2) k/uL Sodium 137 (137-145) mmol/L Potassium 4.0 (3.5-5.1) mmol/L Chloride 103 (98-107) mmol/L Carbon Dioxide 26 (22-30) mmol/L Anion Gap 8 mmol/L BUN 10 (7-17) mg/dL Creatinine 0.62 (0.52-1.04) mg/dL Est GFR (CKD-EPI)AfAm >90 (>60 ml/min/1.73 sqM) Est GFR (CKD-EPI)NonAf >90 (>60 ml/min/1.73 sqM) Glucose 109 H (74-99) mg/dL Calcium 9.7 (8.4-10.2) mg/dL Total Bilirubin 0.4 (0.2-1.3) mg/dL AST 26 (14-36) U/L ALT 16 (4-34) U/L Alkaline Phosphatase 110 (38-126) U/L Total Protein 7.4 (6.3-8.2) g/dL Albumin 4.6 (3.5-5.0) g/dL Lipase 37 (23-300) U/L - Radiology Data Single contrast barium swallow was performed. Report reviewed in its entirety. Impression by Dr. Sesay shows very tight gastroesophageal junction resulting in a moderate to severe obstruction with pooling of contrast up to the thoracic inlet after only 2 swallows. Resultant recurrent episodes of injury esophageal reflex. Occasional intermittent passage of a narrow stream of contrast into the stomach. Consider postoperative stenosis of the knee since site or developing achalasia. No recurrent hiatal hernias clearly seen on the study. (Blanka Hdz) Disposition <Fortunato Robin - Last Filed: 05/01/20 22:53> Decision to Admit Reason: Admit from EC Decision Date: 05/01/20 Decision Time: 22:52 <Blanka Hdz - Last Filed: 05/02/20 02:49> Clinical Impression: Esophageal obstruction Disposition: ADMITTED IP TO THIS [facility] Condition: Serious
[2020-05-01] MEDS: SODIUM CHLORIDE 0.9% 1,000 ML IV SCH (23:48)
--- NOTE | 2020-05-02 10:24 | P.GSHP ---
History of Present Illness H&P Date: 05/02/20 Chief Complaint: Dysphagia, vomiting CHIEF COMPLAINT: Dysphagia HISTORY OF PRESENT ILLNESS: 64-year-old female who presented to the emergency room with a chief complaint of dysphagia and vomiting. Patient has a history of Shama fundoplication in August 2019. She states on Friday she began vomiting and has been unable to hold down liquids since then. PAST MEDICAL HISTORY: See list. PAST SURGICAL HISTORY: See list. SOCIAL HISTORY: No illicit drug use. REVIEW OF SYSTEMS: CONSTITUTIONAL: Denies fever or chills. HEENT: Denies blurred vision, vision changes, or eye pain. Denies hemoptysis CARDIOVASCULAR: Denies chest pain or pressure. RESPIRATORY: No shortness of breath. GASTROINTESTINAL: Refer to [facility] for pertinent findings HEMATOLOGIC: Denies bleeding disorders. GENITOURINARY: Denies any blood in urine. SKIN: Denies pruitis. Denies rash. PHYSICAL EXAM: VITAL SIGNS: Reviewed. GENERAL: Well-developed in no acute distress. HEENT: No sclera icterus. Extraocular movements grossly intact. Moist buccal mucosa. Head is atraumatic, normocephalic. ABDOMEN: Soft. Nondistended. Nontender. NEUROLOGIC: Alert and oriented. Cranial nerves II through XII grossly intact. LABORATORY DATA: WBC 10.3. Hemoglobin 14.2. Platelet count 277. IMAGING: Barium swallow: Very tight GE junction resulting in moderate to severe obstru ction. ASSESSMENT: 1. Obstruction at GE junction 2. History of Shama fundoplication, 2019 PLAN: NPO Patient to undergo EGD today with Dr. Medellin Nurse practitioner note has been reviewed by physician. Signing provider agrees with the documented findings, assessment, and plan of care. 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 History of Any Multi-Drug Resistant Organisms: None Reported Past Surgical History: Appendectomy, Bladder Surgery, Section, Cholecystectomy, Hysterectomy, Uterine Ablation Additional Past Surgical History / Comment(s): shaheed 06-16-19, COLONOSCOPY POLYPECTOMY, EGD, RT WRIST GANGLION CYST REMOVED., PARTIAL HYSTERECTOMY (HAS OVARIES). Past Anesthesia/Blood Transfusion Reactions: No Reported Reaction, Family History of Problems w/ Anesthesia Additional Past Anesthesia/Blood Transfusion Reaction / Comment(s): mother had problems coming out of anesthesia. no problems with prior blood transfusions Past Psychological History: Anxiety, Depression Smoking Status: Current every day smoker Past Alcohol Use History: Rare Past Drug Use History: Marijuana - Past Family History Father Family Medical History: Cancer, CVA/TIA, Osteoarthritis (OA) Additional Family Medical History / Comment(s): LUNG CA AND CIRRHOSIS. Mother Family Medical History: COPD, Osteoarthritis (OA) Additional Family Medical History / Comment(s): GLAUCOMA Medications and Allergies Home Medications Medication Instructions Recorded Confirmed Type Aspirin [Adult Low Dose Aspirin EC] 81 mg PO DAILY 03/29/19 05/02/20 History Atorvastatin Calcium [Lipitor] 40 mg PO HS 05/02/20 05/02/20 History Cholecalciferol [Vitamin D3 (25 1,000 units PO DAILY 05/02/20 05/02/20 History Mcg = 1000 Iu)] Clotrimazole/Betameth Cream 1 applic TOPICAL BID PRN 05/02/20 05/02/20 History [Lotrisone] Loratadine [Claritin] 10 mg PO DAILY 05/02/20 05/02/20 History Multivit-Min/Iron/Folic/Lutein 1 each PO DAILY 05/02/20 05/02/20 History [Centrum Silver Women Tablet] Potassium Gluconate 99 mg PO DAILY 05/02/20 05/02/20 History Allergies Allergy/AdvReac Type Severity Reaction Status Date / Time latex Allergy Rash/Hives Verified 05/02/20 08:05 sulfamethoxazole Allergy Rash/Hives Verified 05/02/20 08:05 [From Bactrim] Surgical - Exam Vital Signs Temp Pulse Resp BP Pulse Ox 99.2 F 76 18 142/84 99 05/01/20 20:52 05/01/20 20:52 05/01/20 20:52 05/01/20 20:52 05/01/20 20:52 Results - Labs 05/01/20 21:30 05/01/20 21:30 Abnormal Lab Results - Last 24 Hours (Table) 05/01/20 Range/Units 21:30 Glucose 109 H (74-99) mg/dL Diabetes panel 05/01/20 Range/Units 21:30 Sodium 137 (137-145) mmol/L Potassium 4.0 (3.5-5.1) mmol/L Chloride 103 (98-107) mmol/L Carbon Dioxide 26 (22-30) mmol/L BUN 10 (7-17) mg/dL Creatinine 0.62 (0.52-1.04) mg/dL Glucose 109 H (74-99) mg/dL Calcium 9.7 (8.4-10.2) mg/dL AST 26 (14-36) U/L ALT 16 (4-34) U/L Alkaline Phosphatase 110 (38-126) U/L Total Protein 7.4 (6.3-8.2) g/dL Albumin 4.6 (3.5-5.0) g/dL Calcium panel 05/01/20 Range/Units 21:30 Calcium 9.7 (8.4-10.2) mg/dL Albumin 4.6 (3.5-5.0) g/dL Pituitary panel 05/01/20 Range/Units 21:30 Sodium 137 (137-145) mmol/L Potassium 4.0 (3.5-5.1) mmol/L Chloride 103 (98-107) mmol/L Carbon Dioxide 26 (22-30) mmol/L BUN 10 (7-17) mg/dL Creatinine 0.62 (0.52-1.04) mg/dL Glucose 109 H (74-99) mg/dL Calcium 9.7 (8.4-10.2) mg/dL Adrenal panel 05/01/20 Range/Units 21:30 Sodium 137 (137-145) mmol/L Potassium 4.0 (3.5-5.1) mmol/L Chloride 103 (98-107) mmol/L Carbon Dioxide 26 (22-30) mmol/L BUN 10 (7-17) mg/dL Creatinine 0.62 (0.52-1.04) mg/dL Glucose 109 H (74-99) mg/dL Calcium 9.7 (8.4-10.2) mg/dL Total Bilirubin 0.4 (0.2-1.3) mg/dL AST 26 (14-36) U/L ALT 16 (4-34) U/L Alkaline Phosphatase 110 (38-126) U/L Total Protein 7.4 (6.3-8.2) g/dL Albumin 4.6 (3.5-5.0) g/dL
[2020-05-02] MEDS ORDERED: LIDOCAINE 1% INJ 10MG/ML (20 ML MDV) ONE (12:47)
[2020-05-02] MEDS ORDERED: PROPOFOL 10 MG/ML 20 ML VIAL IV ONE (12:47)
[2020-05-02] MEDS ORDERED: LACTATED RINGERS 1,000 ML IV ONE (12:51)
--- NOTE | 2020-05-02 13:05 | P.OP ---
Date of Procedure: 05/02/20 Preoperative Diagnosis: Dysphagia Postoperative Diagnosis: Dysphagia Procedure(s) Performed: EGD with balloon dilatation GE junction Anesthesia: RITA Surgeon: Shaheed Medellin Pathology: none sent Condition: stable Disposition: PACU Description of Procedure: Patient's placed on the operating table in the lateral position. She received IV sedation. The gastroscope placed oropharynx and passed in the esophagus into the stomach. Scope was then placed through the pylorus. The first second portion duodenum. Normal. Scope summer back and stomach and there was no evidence of any inflammation. The scope was retroflexed there is no significant hiatal hernia. The GE junction did not appear to be tight. Due to patient's symptoms of dysphagia a 20 mm balloon was placed across the GE junction and held in position for 3 minutes. The balloon was easy to move at the GE junction. There is no evidence of any obstruction of the GE junction. This point was removed. There is no evidence of any mucosal injury of the GE junction. The proximal esophagus appeared normal. The distal esophagus appeared normal. Scope was withdrawn for patient.
[2020-05-02] MEDS: DEXAMETHASONE SOD PHOSPHATE 4 MG/ML 1 ML VIAL IV SCH ×2 (18:35→23:14)
[2020-05-02] MEDS: SODIUM CHLORIDE 0.9% 1,000 ML IV SCH (20:27)
[2020-05-03] MEDS: DEXAMETHASONE SOD PHOSPHATE 4 MG/ML 1 ML VIAL IV SCH ×2 (06:08→12:42)
[2020-05-03] MEDS: SODIUM CHLORIDE 0.9% 1,000 ML IV SCH (06:10)
[2020-05-03 07:49] VITALS: BP 142/69; PULSE 91; RESP 16; TEMP 97.8
== END 2020-05-03 14:05 | disposition home or self-care (01) ==
LOC: EC 20:46 → 1SOBS 22:53
PROVIDERS: ADMIT Surgery; ATTEND Surgery
DX: K22.2 Esophageal obstruction (principal); K21.9 Gastro-esophageal reflux disease without esophagitis; R11.2 Nausea with vomiting, unspecified; J44.9 Chronic obstructive pulmonary disease, unspecified; E78.5 Hyperlipidemia, unspecified; M19.90 Unspecified osteoarthritis, unspecified site; F41.9 Anxiety disorder, unspecified; F32.9 Major depressive disorder, single episode, unspecified; Z98.890 Other specified postprocedural states; F17.200 Nicotine dependence, unspecified, uncomplicated; Z79.82 Long term (current) use of aspirin; Z79.899 Other long term (current) drug therapy; Z88.2 Allergy status to sulfonamides; Z88.1 Allergy status to other antibiotic agents; Z91.040 Latex allergy status; Z85.038 Personal history of other malignant neoplasm of large intestine; Z90.49 Acquired absence of other specified parts of digestive tract; Z90.711 Acquired absence of uterus with remaining cervical stump; Z98.891 History of uterine scar from previous surgery; Z82.3 Family history of stroke; Z82.61 Family history of arthritis; Z80.1 Family history of malignant neoplasm of trachea, bronchus and lung; Z82.5 Family history of asthma and other chronic lower respiratory diseases; Z83.511 Family history of glaucoma; Z83.79 Family history of other diseases of the digestive system; Z03.818 Encounter for observation for suspected exposure to other biological agents ruled out
CPT/HCPCS: 96361; 96374; 99285; 36415; 80053; 83690; 85025; 74220; 43249; G0378 ×3; U0003; J1100 ×2; J2405; J2001; J2704; C1726

== ENCOUNTER → 2020-05-12 | Outpatient (CLI) | payer MEDICARE ==
--- NOTE | 2020-05-12 13:19 | FL ---
EXAMINATION TYPE: FL UGI air w esophagus DATE OF EXAM: 05/12/2020 CLINICAL INDICATION: 64-year-old female unspecified dysplasia. History of Shama fundoplication in No 2019. Episodes of vomiting, trouble swallowing, and food sticking beginning this month. COMPARISON: None Total Fluoroscopy Time: 3 minutes Total images: 57 FINDINGS: The swallowing mechanism is normal and hypopharyngeal anatomy is preserved. There is mild hypertrophy of the cricopharyngeus noted. Moderate tertiary peristalsis is demonstrated with blunted secondary stripping waves. Ingested contra st remains pooled in the esophagus when the patient is supine with episodes of intraesophageal reflux and tertiary contractions. Otherwise, the cervical and thoracic portions have a normal course and caliber. The mucosa is normal and no persistent filling defect is encountered. There is no gastroesophageal reflux identified. Postsurgical changes of Shama fundoplication. No recurrent hiatal hernia is identified. Gastroesopha geal reflux could not be elicited during the course of the exam. The stomach and duodenum are free of any persistent filling defect and demonstrate a normal mucosal p attern. IMPRESSION: 1. Findings suggest presbyesophagus with contrast remaining within the esophagus when the patient is supine with bouts of intraesophageal reflux and tertiary contractions. 2. Mild hypertrophy of the cricopharyngeus may be a secondary, protective mechanism. 3. Status post Shama fundoplication. No recurrent hiatal hernia is identified. 4. Gastroesophageal reflux could not be elicited during the course of the exam. 5. No specific abnormality identified of the stomach or proximal duodenum.
== END | disposition home or self-care (01) ==
LOC: RADUSWWP 11:01
PROVIDERS: ATTEND Surgery
DX: K21.9 Gastro-esophageal reflux disease without esophagitis (principal)
CPT/HCPCS: 74246

== ENCOUNTER → 2020-05-17 | Outpatient (CLI) | payer MEDICARE ==
[2020-05-17 12:57] LABS: Basophils # (A) 0.1 k/uL (0-0.2); Basophils % (A) 1 %; Eosinophils # (A) 0.3 k/uL (0-0.7); Eosinophils % (A) 3 %; HCT 43.9 % (34.0-46.0); HGB 14.5 gm/dL (11.4-16.0); Lymphocytes # (A) 2.2 k/uL (1.0-4.8); Lymphocytes % (A) 25 %; MCH 32.8 pg (25.0-35.0); MCV 99.4 fL (80.0-100.0); Mean Platelet Volume 7.2; Monocytes # (A) 0.3 k/uL (0-1.0); Monocytes % (A) 3 %; Neutrophils # (A) 5.9 k/uL (1.3-7.7); Neutrophils % (A) 67 %; Platelet Count 310 k/uL (150-450); RBC 4.41 m/uL (3.80-5.40); RDW 13.1 % (11.5-15.5); WBC 8.8 k/uL (3.8-10.6)
== END | disposition home or self-care (01) ==
LOC: LABPAT 11:52
PROVIDERS: ATTEND Surgery
DX: Z01.818 Encounter for other preprocedural examination (principal); R13.19 Other dysphagia; D64.9 Anemia, unspecified; F17.200 Nicotine dependence, unspecified, uncomplicated
CPT/HCPCS: 36415; 85025

== ENCOUNTER 2020-05-23 07:17 | Day surgery (SDC) | payer MEDICARE ==
[~2020-05-23 07:17] MED LIST changes: -DEXAMETHASONE SOD PHOSPHATE 10 MG/ML 1 ML VIAL IV ONE; -HEPARIN SODIUM,PORCINE 5,000 UNIT/ML 1 ML VIAL SQ ONE; +HYDROmorphone 0.5 MG/0.5 ML SYRINGE IVP PRN; -LACTATED RINGERS 1,000 ML IV SCH; -LIDOCAINE 1% 20 ML VIAL (10MG/ML) FOR IV START INTRADERMA PRN; -SCOPOLAMINE 1.5MG/72HR PATCH TRANSDERM ONE; +fentaNYL (PF) 50 MCG/ML 2 ML AMP IV PRN
[2020-05-23] MEDS ORDERED: HEPARIN SODIUM,PORCINE 5,000 UNIT/ML 1 ML VIAL SQ ONE (07:50)
[2020-05-23] MEDS ORDERED: LIDOCAINE 1% (10MG/ML) FOR IV START INTRADERMA ONE (07:50)
[2020-05-23] MEDS: LACTATED RINGERS 1,000 ML IV SCH ×2 (07:50→14:20)
[2020-05-23] MEDS ORDERED: DEXAMETHASONE SOD PHOSPHATE 10 MG/ML 1 ML VIAL IV ONE (07:50)
[2020-05-23] MEDS ORDERED: ONDANSETRON 4 MG/2 ML VIAL IVP ONE (07:50)
[2020-05-23 08:06] LABS: Glucose,Whole Blood 121 mg/dL (75-99)
[2020-05-23] MEDS ORDERED: HEPARIN SODIUM,PORCINE 5,000 UNIT/ML 1 ML VIAL SQ STA (08:10)
[2020-05-23 08:24] LABS: Glucose,Whole Blood 20 mg/dL (75-99)
[2020-05-23 08:24] LABS: Glucose,Whole Blood 32 mg/dL (75-99)
[2020-05-23 08:24] LABS: Glucose,Whole Blood 35 mg/dL (75-99)
--- NOTE | 2020-05-23 09:03 | P.GSHP ---
History of Present Illness H&P Date: 05/23/20 Chief Complaint: Dysphagia Is a 64-year-old female who's had developed dysphagia after Shama fundal plication. Patient presents today for repair of recurrent hiatal hernia and revision of Shama fundal plication. Past Medical History Past Medical History: COPD, GERD/Reflux, Hyperlipidemia, Osteoarthritis (OA), Skin Disorder Additional Past Medical History / Comment(s): Hx Pre-cancer uterus, & colon polyps. Chest tube x1 D/T Spontaneous Pneumothorax x2. HX Environmental Allergies. Rash on body, fungal infection, on steroids & topical Rx. Having dysphagia, drinking Boost or Ensure. History of Any Multi-Drug Resistant Organisms: None Reported Past Surgical History: Appendectomy, Bladder Surgery, Section, Cholecystectomy, Hysterectomy, Uterine Ablation Additional Past Surgical History / Comment(s): C-S x2. COLONOSCOPY POLYPECTOMY, EGD, RT WRIST GANGLION CYST REMOVED. PARTIAL HYSTERECTOMY (HAS OVARIES). EGD w/ dilation 05/03/20 Past Anesthesia/Blood Transfusion Reactions: No Reported Reaction, Family History of Problems w/ Anesthesia Additional Past Anesthesia/Blood Transfusion Reaction / Comment(s): mother had problems coming out of anesthesia. no problems with prior blood transfusions Past Psychological History: Anxiety, Depression Additional Psychological History / Comment(s): In past hx. Smoking Status: Current every day smoker Past Alcohol Use History: Rare Additional Past Alcohol Use History / Comment(s): SMOKING SINCE 18 YEARS OLD, 2 - 2 1/2 ppd, cut back to 1 ppd. Past hx alcohol abuse. Past Drug Use History: Marijuana Additional Drug Use History / Comment(s): EDIBLE AND SMOKES OCCASION - Past Family History Father Family Medical History: Cancer, CVA/TIA, Osteoarthritis (OA) Additional Family Medical History / Comment(s): LUNG CA AND CIRRHOSIS. Mother Family Medical History: COPD, Osteoarthritis (OA) Additional Family Medical History / Comment(s): GLAUCOMA Medications and Allergies Home Medications Medication Instructions Recorded Confirmed Type Aspirin [Adult Low Dose Aspirin EC] 81 mg PO DAILY 03/29/19 05/18/20 History Atorvastatin Calcium [Lipitor] 40 mg PO HS 05/02/20 05/18/20 History Cholecalciferol [Vitamin D3 (25 1,000 units PO DAILY 05/02/20 05/18/20 History Mcg = 1000 Iu)] Multivit-Min/Iron/Folic/Lutein 1 each PO DAILY 05/02/20 05/18/20 History [Centrum Silver Women Tablet] Potassium Gluconate 99 mg PO DAILY 05/02/20 05/18/20 History Benadryl Allergy Plus 2 tab PO DIRECTED PRN 05/18/20 History Melatonin 20 mg PO HS 05/18/20 05/18/20 History Nystatin 15 gm TP BID PRN 05/18/20 05/18/20 History Allergies Allergy/AdvReac Type Severity Reaction Status Date / Time latex Allergy Rash/Hives Verified 05/18/20 18:14 sulfamethoxazole Allergy Rash/Hives Verified 05/18/20 18:14 [From Bactrim] Surgical - Exam Vital Signs Temp Pulse Resp BP Pulse Ox 97.3 F L 60 20 114/60 96 05/23/20 07:36 05/23/20 07:36 05/23/20 07:36 05/23/20 07:36 05/23/20 07:36 - General well developed, well nourished, no distress - Eyes PERRL - ENT normal pinna - Neck no masses - Respiratory normal expansion - Cardiovascular Rhythm: regular - Abdomen Abdomen: soft, non tender Results - Labs Abnormal Lab Results - Last 24 Hours (Table) 05/23/20 05/23/20 05/23/20 Range/Units 07:54 07:56 08:01 POC Glucose (mg/dL) 35 L 20 L 32 L (75-99) mg/dL 05/23/20 Range/Units 08:03 POC Glucose (mg/dL) 121 H (75-99) mg/dL Assessment and Plan Assessment: Dysphagia Recurrent hiatal hernia We'll perform revision of Shama fundoplication and repair of recurrent hiatal hernia
[2020-05-23] MEDS ORDERED: PROPOFOL 10 MG/ML 20 ML VIAL IV ONE (09:17)
[2020-05-23] MEDS ORDERED: ROCURONIUM BROMIDE 10 MG/ML 5 ML VIAL IV ONE (09:17)
[2020-05-23] MEDS ORDERED: MIDAZOLAM 2 MG/2 ML VIAL ONE (09:17)
[2020-05-23] MEDS ORDERED: ePHEDrine SULFATE/0.9% NACL/PF 50 MG/5 ML SYRINGE IV ONE (09:17)
[2020-05-23] MEDS ORDERED: SUCCINYLCHOLINE CHLORIDE 100 MG/5 ML SYR IV ONE (09:17)
[2020-05-23] MEDS ORDERED: GLYCOPYRROLATE 0.2 MG/ML 2 ML VIAL ONE (09:17)
[2020-05-23] MEDS ORDERED: fentaNYL (PF) 50 MCG/ML 2 ML AMP ONE (09:17)
[2020-05-23] MEDS ORDERED: NEOSTIGMINE 1 MG/ML 10 ML VIAL ONE (09:17)
[2020-05-23] MEDS ORDERED: HYDROmorphone (PF) 1 MG/ML ONE (09:17)
[2020-05-23] MEDS ORDERED: LIDOCAINE 1% INJ 10MG/ML (20 ML MDV) ONE (09:17)
[2020-05-23] MEDS ORDERED: SODIUM CHLORIDE 0.9% 50 ML with ceFAZolin 2,000 MG IV ONE ×2 (09:23)
[2020-05-23] MEDS ORDERED: ONDANSETRON 4 MG/2 ML VIAL IVP PRN (10:34)
--- NOTE | 2020-05-23 10:34 | P.OP ---
Date of Procedure: 05/23/20 Preoperative Diagnosis: Dysphagia Postoperative Diagnosis: Dysphagia Recurrent hiatal hernia Procedure(s) Performed: Laparoscopic repair of hiatal hernia Anesthesia: RITA Surgeon: Shaheed Medellin Estimated Blood Loss (ml): 10 Pathology: none sent Condition: stable Disposition: PACU Description of Procedure: HarThe patient was placed on the operating table in the supine position. The patient received general anesthesia. And was placed in dorsal lithotomy po sition. The patient was prepped and draped in the usual sterile fashion. The skin incision sites were anesthetized with 1% local Xylocaine. The skin was incised in the left periumbilical area and then using a blade less 5 mm trocar under direct visualization panel cavity was entered. After adequate insufflation the laparoscope was then placed into the peritoneal cavity. Next a 5 mm trochars placed in the right epigastric position. Another 5 millimeter trocar the right lateral position. Another 5 millimeter trocar in the left lateral position a 5 mm trocar is placed in the left epigastric position. And then the initial 5 mm trocar was exchanged for a 10 mm trocar. The left lateral lobe liver was retracted. There was a recurrent hiatal hernia.. The crural defect was then dissected using the Harmonic scissors device. A 360 crural dissection was performed the esophagus stomach was reduced back into the peritoneal Cavity. The crural defect was then closed using 2-0 Ethibond suture. Next the fundoplication wrap was taken down with sharp dissection. The stomach was visualized. There is no evidence of any injury to the stomach. A 180 wrap remained. The abdomen was irrigated. There is no being seen. The trochars withdrawn. The skin closed interrupted 3-0 Monocryl suture. Dermabond was applied.
[2020-05-23] MEDS ORDERED: LACTATED RINGERS 1,000 ML IV ONE (12:38)
--- NOTE | 2020-05-23 13:18 | FL ---
EXAMINATION TYPE: FL esophagus cervic/pharynx DATE OF EXAM: 05/23/2020 LIMITED UGI-ESOPHAGRAM: CLINICAL HISTORY: Dysphasia, recurrent hernia, status post Shama fundoplication revision surgery ea ronald today. TECHNIQUE: Limited esophagram is performed utilizing 2 oz of [id number]-370. A total of 49 seconds of fl uoroscopic time was utilized during procedure. 32 spot images are saved to PACS. Comparison: Upper GI study 11 days ago. FINDINGS: The patient swallowed contrast without difficulty or delay. Esophageal peristalsis and mo tility are within normal limits. There is good flow of contrast along the diaphragmatic hiatus into t he stomach, there is no evidence of contrast extravasation to suggest leak. No persistent hiatal rustam ia is seen. Patient remains asymptomatic. IMPRESSION: No evidence of leak or significant obstruction status post Evens fundoplication revision surgery earlier today.
[2020-05-23 15:39] VITALS: BMI 24.3
[2020-05-23] MEDS: D5-0.45% NACL WITH KCL 20MEQ/L 1,000 ML IV SCH ×2 (16:42→17:14)
[2020-05-23 19:57] LABS: Glucose,Whole Blood 239 mg/dL (75-99)
[2020-05-23 20:34] LABS: Glucose,Whole Blood 207 mg/dL (75-99)
[2020-05-23] MEDS: HYDROmorphone 1 MG/ML 1 ML SYRINGE IVP PRN (20:34)
[2020-05-23] MEDS: NICOTINE 14MG/24HR PATCH TRANSDERM SCH (22:14)
[2020-05-24 00:11] VITALS: RESP 16
[2020-05-24] MEDS: D5-0.45% NACL WITH KCL 20MEQ/L 1,000 ML IV SCH ×2 (00:20→08:56)
--- NOTE | 2020-05-24 04:10 | CONS ---
CONSULTATION REASON FOR CONSULTATION: Advice regarding history of COPD and multiple other medical issues requested by Dr. Medellin. HISTORY OF PRESENT ILLNESS: This 64-year-old woman with past medical history of COPD, GERD, hyperlipidemia, history of precancer uterus, being followed by Dr. Emmie Thakur in the outpatient setting underwent laparoscopic repair of hiatal hernia for recurrent hiatal hernia and dysphagia. The patient tolerated the procedure well. No chest pain. No palpitations. No fever. The glucose was reported to be 20 and 32 but subsequently elevated to 239 and 207. There is no history of fever or rigors. No history of headache, loss of consciousness or seizures. PAST MEDICAL HISTORY: COPD, GERD, hyperlipidemia, history of DJD. MEDICATIONS: Medications prior to admission home medications are: 1. Potassium gluconate 99 mg p.o. daily. 2. Nystatin. 3. Multivitamins one p.o. daily. 4. Melatonin. 5. Cholecalciferol. 6. Benadryl. 7. Lipitor. 8. Aspirin. FAMILY HISTORY: History of cancer, lung cancer and degenerative joint disease. SOCIAL HISTORY: History of smoking continuing. History of THC. REVIEW OF SYSTEMS: ENT: No diminished hearing or diminished vision. CARDIOVASCULAR SYSTEM: No angina. RESPIRATORY SYSTEM: No cough or hemoptysis. GI: As mentioned earlier. : No dysuria. NERVOUS SYSTEM: No numbness or weakness. ALLERGY/IMMUNOLOGY: No asthma or hayfever. MUSCULOSKELETAL: As mentioned earlier. HEMATOLOGY/ONCOLOGY: No history of anemia. ENDOCRINE: No history of diabetes or hypothyroidism. CONSTITUTIONAL: As mentioned earlier. DERMATOLOGY: Negative. RHEUMATOLOGY: Negative. PSYCHIATRY: As mentioned earlier. PHYSICAL EXAMINATION: The patient is alert and oriented x3. Pulse 81, blood pressure 136/81, respiration 20, temperature 98.6, pulse ox 94% on room air. HEENT: Conjunctivae normal. NECK: No jugular venous distention. CARDIOVASCULAR: S1, S2 muffled. RESPIRATORY: Breath sounds diminished at the bases. No rhonchi. No crackles. ABDOMEN: Soft, status post surgery. LEGS: No edema. No swelling. NERVOUS SYSTEM: No focal deficits. LABS: Accu-Cheks 239, 207. ASSESSMENT: 1. Status post laparoscopic repair of hiatal hernia for recurrent hiatal hernia for dysphagia. 2. Hypoglycemia and subsequently elevated blood glucose of undetermined etiology possibly secondary from diminished p.o. intake. 3. Chronic obstructive pulmonary disease. 4. Gastroesophageal reflux disease. 5. Hyperlipidemia. 6. History of degenerative joint disease. 7. History of spontaneous pneumothorax. 8. History of appendectomy. 9. History of bladder surgery. 10.History of cholecystectomy. 11.History of anxiety, depression. 12.History of nicotine dependence. RECOMMENDATIONS AND DISCUSSION: This 64-year-old woman presented with multiple complex medical issues, we will monitor the patient closely. Continue the current medications, continue symptomatic treatment. DVT prophylaxis. Proton pump inhibitors. Otherwise, resume the home medications. Prognosis guarded because of multiple complex medical issues. Will monitor the blood glucose closely. Otherwise, will initiate home medications once the patient is p.o. Further recommendations to follow. MMODL / IJN: [id number] /
[2020-05-24] MEDS: HYDROmorphone 1 MG/ML 1 ML SYRINGE IVP PRN ×2 (04:35→08:56)
[2020-05-24 06:28] LABS: Basophils % (A) 0 %; Eosinophils # (A) 0.1 k/uL (0-0.7); Eosinophils % (A) 1 %; HCT 39.3 % (34.0-46.0); HGB 12.9 gm/dL (11.4-16.0); Lymphocytes # (A) 3.1 k/uL (1.0-4.8); Lymphocytes % (A) 23 %; MCH 32.7 pg (25.0-35.0); MCHC 32.9 g/dL (31.0-37.0); MCV 99.4 fL (80.0-100.0); Mean Platelet Volume 6.9; Monocytes # (A) 0.5 k/uL (0-1.0); Monocytes % (A) 4 %; Neutrophils # (A) 9.4 k/uL (1.3-7.7); Neutrophils % (A) 71 %; Platelet Count 279 k/uL (150-450); RBC 3.95 m/uL (3.80-5.40); RDW 13.2 % (11.5-15.5); WBC 13.1 k/uL (3.8-10.6)
[2020-05-24 06:29] LABS: Glucose,Whole Blood 129 mg/dL (75-99)
[2020-05-24 06:36] LABS: African American GFR (CKD) >90 (>60 ml/min/1.73 sqM); Anion Gap 3 mmol/L; Blood Urea Nitrogen 10 mg/dL (7-17); Calcium 8.4 mg/dL (8.4-10.2); Carbon Dioxide 29 mmol/L (22-30); Chloride 105 mmol/L (98-107); Glucose 128 mg/dL (74-99); Non-African American GFR(CKD) >90 (>60 ml/min/1.73 sqM); Potassium 4.7 mmol/L (3.5-5.1); Sodium 137 mmol/L (137-145)
[2020-05-24] MEDS ORDERED: ENOXAPARIN 40 MG/0.4 ML SYRINGE SQ SCH (09:00)
[2020-05-24] MEDS: NICOTINE 14MG/24HR PATCH TRANSDERM SCH (09:17)
--- NOTE | 2020-05-24 11:31 | P.DS ---
Providers Expected date of discharge: 05/24/20 Attending physician: Shaheed Medellin Primary care physician: [facility] Hospital Course: This is a 64-year-old female who underwent revision of Shama fundal plication and repair of hiatal hernia. Patient did well postoperative. Her esophagram showed no evidence of obstruction or reflux. Patient was tolerating liquids. She was discharged home on postoperative day 1. Procedures: Laparoscopic repair of hiatal hernia and revision of Shama fundoplication Patient Condition at Discharge: Good Plan - Discharge Summary Discharge Rx Participant: No New Discharge Prescriptions: New Docusate [Colace] 100 mg PO BID #20 capsule HYDROcodone/APAP 5-325MG [Elsa 5-325] 1 tab PO Q6HR PRN #10 tab PRN Reason: Pain No Action Aspirin [Adult Low Dose Aspirin EC] 81 mg PO DAILY Atorvastatin Calcium [Lipitor] 40 mg PO HS Multivit-Min/Iron/Folic/Lutein [Centrum Silver Women Tablet] 1 each PO DAILY Cholecalciferol [Vitamin D3 (25 Mcg = 1000 Iu)] 1,000 units PO DAILY Potassium Gluconate 99 mg PO DAILY Nystatin 15 gm TP BID PRN PRN Reason: fungal Rash Benadryl Allergy Plus 2 tab PO DIRECTED PRN PRN Reason: allergy sx Melatonin 20 mg PO HS Discharge Medication List Aspirin [Adult Low Dose Aspirin EC] 81 mg PO DAILY 03/29/19 [History] Atorvastatin Calcium [Lipitor] 40 mg PO HS 05/02/20 [History] Cholecalciferol [Vitamin D3 (25 Mcg = 1000 Iu)] 1,000 units PO DAILY 05/02/20 [History] Multivit-Min/Iron/Folic/Lutein [Centrum Silver Women Tablet] 1 each PO DAILY 05/02/20 [History] Potassium Gluconate 99 mg PO DAILY 05/02/20 [History] Benadryl Allergy Plus 2 tab PO DIRECTED PRN 05/18/20 [History] Melatonin 20 mg PO HS 05/18/20 [History] Nystatin 15 gm TP BID PRN 05/18/20 [History] Docusate [Colace] 100 mg PO BID #20 capsule 05/24/20 [Rx] HYDROcodone/APAP 5-325MG [Elsa 5-325] 1 tab PO Q6HR PRN #10 tab 05/24/20 [Rx] Follow up Appointment(s)/Referral(s): Shaheed Medellin MD [STAFF PHYSICIAN] - 1 Week Patient Instructions/Handouts: Laparoscopic Hiatal Hernia Repair (DC) Discharge Disposition: HOME SELF-CARE
[2020-05-24 12:47] LABS: Glucose,Whole Blood 129 mg/dL (75-99)
[2020-05-24 13:46] VITALS: BP 104/61; PULSE 59; TEMP 98
--- NOTE | 2020-05-24 13:49 | P.PN ---
Subjective Progress Note Date: 05/24/20 Principal diagnosis: This is a 64-year-old female who was recently admitted for laparoscopic repair of hiatal hernia for recurrent hiatal hernia and dysphagia with Dr. Medellin and is being closely monitored. Patient is tolerating food and continues to have some mild hesitation in swallowing with thin liquids. Patient underwent fluoroscopy of the esophagus and pharynx which showed no evidence of leak or significant obstruction status post Shama fundoplication revision and esophageal peristalsis and motility are within normal limits, and no persistent hiatal hernia is seen. Currently patient has no reports of chest pain, shortness of breath, or palpitations. Patient is afebrile. No reports of nausea or vomiting noted and patient is tolerating diet. Patient states she does have a slight cough and believes it is due to to the fact that she has not been smoking cigarettes in the last couple of days. Discussed with the patient about continuing to refrain from tobacco use. Will continue to follow along with surgery. Objective - Vital Signs Vital signs: Vital Signs Temp 98.5 F 05/24/20 08:30 Pulse 66 05/24/20 08:30 Resp 16 05/24/20 08:30 BP 119/68 05/24/20 08:30 Pulse Ox 96 05/24/20 08:30 Intake & Output 05/23/20 05/24/20 05/24/20 18:59 06:59 18:59 Intake Total 1025 1250 Output Total 525 700 Balance 500 550 Weight 72.4 kg Intake: IV 1025 Intake, IV Titration 1000 Amount D5-0.45% NaCl with KCl 1000 20Meq/l 1,000 ml @ 125 mls/hr IV .Q8H VENECIA Rx#: [id number] Oral 250 Output: Urine 500 700 Estimated Blood Loss 25 Other: # Voids 4 - Exam Gen: This is a 64-year-old female sitting up in bed, awake, alert and oriented 3, well-developed, well-nourished HEENT: Head is atraumatic, normocephalic. Pupils equal, round. Sclerae is anicteric. NECK: Supple. No JVD. No lymphadenopathy. No thyromegaly. LUNGS: Manage breath sounds at the bases with no wheezing or rhonchi noted No intercostal retractions. HEART: S1, S2 are muffled ABDOMEN: Soft. Bowel sounds are present. No masses. No tenderness. EXTREMITIES: No pedal edema. No calf tenderness. NEUROLOGICAL: Patient is awake, alert and oriented x3. Cranial nerves 2 through 12 are grossly intact. - Labs CBC & Chem 7: 05/24/20 05:55 05/24/20 05:55 Labs: Abnormal Lab Results - Last 24 Hours (Table) 05/23/20 05/23/20 05/24/20 Range/Units 19:55 20:33 05:55 WBC 13.1 H (3.8-10.6) k/uL Neutrophils # 9.4 H (1.3-7.7) k/uL Creatinine (0.52-1.04) mg/dL Glucose (74-99) mg/dL POC Glucose (mg/dL) 239 H 207 H (75-99) mg/dL 05/24/20 05/24/20 05/24/20 Range/Units 05:55 06:27 12:41 WBC (3.8-10.6) k/uL Neutrophils # (1.3-7.7) k/uL Creatinine 0.47 L (0.52-1.04) mg/dL Glucose 128 H (74-99) mg/dL POC Glucose (mg/dL) 129 H 129 H (75-99) mg/dL Assessment and Plan Assessment: Status post laparoscopic repair of hiatal hernia for recurrent hiatal hernia for dysphagia Hypoglycemia and subsequently elevated blood glucose of undetermined etiology possibly secondary from diminished by mouth intake Chronic obstructive pulmonary disease Gastroesophageal reflux disease Hyperlipidemia for history of degenerative joint disease History of spontaneous pneumothorax History of appendectomy History of bladder surgery History of cholecystectomy History of anxiety, depression History of nicotine dependence Recommendations and discussion: Recommend continue current medications, management, and symptomatic treatment. Continue with PPI. Patient states she will be discharged today. Continue home medications. Patient is tolerating diet with some delayed response and swallowing with thin liquids. Patient will be following up with surgery in the outpatient setting. Will continue to follow along with surgery during hospitalization. Further recommendations to follow.
== END 2020-05-24 15:20 | disposition home or self-care (01) ==
LOC: OR 07:17 → 6PED 10:42 → OR 05-24 15:20
PROVIDERS: ATTEND Surgery
DX: K44.9 Diaphragmatic hernia without obstruction or gangrene (principal); E16.2 Hypoglycemia, unspecified; F41.9 Anxiety disorder, unspecified; F32.9 Major depressive disorder, single episode, unspecified; E78.5 Hyperlipidemia, unspecified; K21.9 Gastro-esophageal reflux disease without esophagitis; J44.9 Chronic obstructive pulmonary disease, unspecified; F17.210 Nicotine dependence, cigarettes, uncomplicated; M19.90 Unspecified osteoarthritis, unspecified site; Z88.2 Allergy status to sulfonamides; Z90.49 Acquired absence of other specified parts of digestive tract; Z91.040 Latex allergy status; Z79.82 Long term (current) use of aspirin; Z79.899 Other long term (current) drug therapy; Z90.710 Acquired absence of both cervix and uterus; Z98.890 Other specified postprocedural states; Z86.010 Personal history of colon polyps; Z82.3 Family history of stroke; Z82.61 Family history of arthritis; Z80.1 Family history of malignant neoplasm of trachea, bronchus and lung; Z82.5 Family history of asthma and other chronic lower respiratory diseases; Z83.511 Family history of glaucoma
CPT/HCPCS: 80048; 85025; 74210; 43280; S4990 ×2; J1644; J1100; J2405; J0690; J1650; J1170 ×2; Q9967

== ENCOUNTER → 2020-12-28 | Outpatient (CLI) | payer MEDICARE | END | disposition home or self-care (01) | LOC: LABWHC1 13:40 | PROVIDERS: ATTEND Family Medicine | DX: Z20.822 Contact with and (suspected) exposure to COVID-19 (principal) | CPT/HCPCS: U0003; C9803 ==

== ENCOUNTER 2021-06-27 17:25 | Observation (INO) | payer MEDICARE ==
[2021-06-27] MEDS ORDERED: NITROGLYCERIN OINT 1 INCH/GM PACKET TOPICAL STA (18:00)
[2021-06-27] MEDS ORDERED: ASPIRIN 81 MG PO STA (18:00)
[2021-06-27 18:16] LABS: Basophils # (A) 0.1 k/uL (0-0.2); Basophils % (A) 1 %; Eosinophils # (A) 0.3 k/uL (0-0.7); Eosinophils % (A) 2 %; HCT 44.5 % (34.0-46.0); HGB 14.7 gm/dL (11.4-16.0); Lymphocytes # (A) 3.7 k/uL (1.0-4.8); Lymphocytes % (A) 32 %; MCH 31.6 pg (25.0-35.0); MCHC 33.1 g/dL (31.0-37.0); MCV 95.4 fL (80.0-100.0); Mean Platelet Volume 7.4; Monocytes # (A) 0.4 k/uL (0-1.0); Monocytes % (A) 3 %; Neutrophils % (A) 61 %; Platelet Count 310 k/uL (150-450); RBC 4.67 m/uL (3.80-5.40); WBC 11.5 k/uL (3.8-10.6)
--- NOTE | 2021-06-27 18:20 | ED ---
General Adult HPI - General Chief complaint: Chest Pain Stated complaint: Pain in chest, back, and neck Time Seen by Provider: 06/27/21 17:30 Source: patient, RN notes reviewed, old records reviewed Mode of arrival: ambulatory Limitations: no limitations - History of Present Illness Initial comments: This is a 65-year-old female who has a past medical history significant for smoking and high cholesterol and a family history of heart disease per patient states today just prior to arrival she had some jaw pain neck pain and chest pain it also radiated to her back and arm. Patient states she was mildly short of breath mildly nauseated and had some sweating though she states she sweats quite easily. Patient states that lasted for probably 40 minutes and then subsided and now she feels at her baseline. Patient denies any recent fever chills or cough. Patient denies headache patient denies lightheadedness or dizziness. Patient denies any leg swelling or calf tenderness. - Related Data Home Medications Medication Instructions Recorded Confirmed Aspirin [Adult Low Dose Aspirin EC] 162 mg PO DAILY 03/29/19 06/27/21 Multivit-Min/Iron/Folic/Lutein 1 tab PO WE 05/02/20 06/27/21 [Centrum Silver Women Tablet] Cholecalciferol [Vitamin D3 (25 50 mcg PO DAILY 06/27/21 06/27/21 Mcg = 1000 Iu)] Allergies Allergy/AdvReac Type Severity Reaction Status Date / Time latex Allergy Rash/Hives Verified 06/27/21 18:29 sulfamethoxazole Allergy Rash/Hives Verified 06/27/21 18:29 [From Bactrim] Review of Systems ROS Statement: Those systems with pertinent positive or pertinent negative responses have been documented in the HPI. ROS Other: All systems not noted in ROS Statement are negative. 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 History of Any Multi-Drug Resistant Organisms: None Reported Past Surgical History: Appendectomy, Bladder Surgery, Section, Cholecystectomy, Hysterectomy, Uterine Ablation Additional Past Surgical History / Comment(s): shaheed 06-16-, COLONOSCOPY POLYPECTOMY, EGD, RT WRIST GANGLION CYST REMOVED., PARTIAL HYSTERECTOMY (HAS OVARIES). Past Anesthesia/Blood Transfusion Reactions: No Reported Reaction, Family History of Problems w/ Anesthesia Additional Past Anesthesia/Blood Transfusion Reaction / Comment(s): mother had problems coming out of anesthesia. no problems with prior blood transfusions Past Psychological History: Anxiety, Depression Smoking Status: Current every day smoker Past Alcohol Use History: Rare Past Drug Use History: Marijuana - Past Family History Father Family Medical History: Cancer, CVA/TIA, Osteoarthritis (OA) Additional Family Medical History / Comment(s): LUNG CA AND CIRRHOSIS. Mother Family Medical History: COPD, Osteoarthritis (OA) Additional Family Medical History / Comment(s): GLAUCOMA General Exam - General Exam Comments Initial Comments: GENERAL: Patient is well-developed and well-nourished. Patient is nontoxic and well- hydrated and is in mild distress. ENT: Neck is soft and supple. No significant lymphadenopathy is noted. Oropharynx is clear. Moist mucous membranes. Neck has full range of motion without eliciting any pain. EYES: The sclera were anicteric and conjunctiva were pink and moist. Extraocular movements were intact and pupils were equal round and reactive to light. Eyelids were unremarkable. PULMONARY: Unlabored respirations. Good breath sounds bilaterally. No audible rales rhonchi or wheezing was noted. CARDIOVASCULAR: There is a regular rate and rhythm without any murmurs gallops or rubs. ABDOMEN: Soft and nontender with normal bowel sounds. SKIN: Skin is clear with no lesions or rashes and otherwise unremarkable. NEUROLOGIC: Patient is alert and oriented x3. Cranial nerves II through XII are grossly intact. Motor and sensory are also intact. Normal speech, volume and content. Symmetrical smile. MUSCULOSKELETAL: Normal extremities with adequate strength and full range of motion. LYMPHATICS: No significant lymphadenopathy is noted PSYCHIATRIC: Normal psychiatric evaluation. Limitations: no limitations Course Vital Signs 06/27/21 06/27/21 06/27/21 17:29 18:00 18:41 Temperature 98.3 F Pulse Rate 85 63 50 L Respiratory 17 18 18 Rate Blood Pressure 161/103 129/80 118/71 O2 Sat by Pulse 97 100 98 Oximetry Medical Decision Making - Medical Decision Making EKG shows normal sinus rhythm at 66 bpm DC interval is 146 QRS is 86 QT interval 42 QTC is 421. Patient has some slight ST segment depression in inferior leads. Chest x-ray shows no acute abnormality. Patient remained pain-free throughout the ED stay. I started the patient heparin. I spoke with the [facility] hospitalist and they agreed to admit the patient admitted the patient admitted wrote admitting orders I continued heparin Nitropaste on the floor. - Lab Data Result diagrams: 06/27/21 18:05 06/27/21 18:05 Lab Results 06/27/21 06/27/21 06/27/21 Range/Units 18:05 18:05 18:05 WBC 11.5 H (3.8-10.6) k/uL RBC 4.67 (3.80-5.40) m/uL Hgb 14.7 (11.4-16.0) gm/dL Hct 44.5 (34.0-46.0) % MCV 95.4 (80.0-100.0) fL MCH 31.6 (25.0-35.0) pg MCHC 33.1 (31.0-37.0) g/dL RDW 13.0 (11.5-15.5) % Plt Count 310 (150-450) k/uL MPV 7.4 Neutrophils % 61 % Lymphocytes % 32 % Monocytes % 3 % Eosinophils % 2 % Basophils % 1 % Neutrophils # 7.0 (1.3-7.7) k/uL Lymphocytes # 3.7 (1.0-4.8) k/uL Monocytes # 0.4 (0-1.0) k/uL Eosinophils # 0.3 (0-0.7) k/uL Basophils # 0.1 (0-0.2) k/uL PT 10.2 (9.0-12.0) sec INR 0.9 (<1.2) APTT 23.0 (22.0-30.0) sec Sodium 135 L (137-145) mmol/L Potassium 3.7 (3.5-5.1) mmol/L Chloride 103 (98-107) mmol/L Carbon Dioxide 21 L (22-30) mmol/L Anion Gap 11 mmol/L BUN 11 (7-17) mg/dL Creatinine 0.69 (0.52-1.04) mg/dL Est GFR (CKD-EPI)AfAm >90 (>60 ml/min/1.73 sqM) Est GFR (CKD-EPI)NonAf >90 (>60 ml/min/1.73 sqM) Glucose 101 H (74-99) mg/dL Calcium 9.4 (8.4-10.2) mg/dL Magnesium 1.9 (1.6-2.3) mg/dL Total Bilirubin 0.6 (0.2-1.3) mg/dL AST 25 (14-36) U/L ALT 17 (4-34) U/L Alkaline Phosphatase 110 (38-126) U/L Troponin I (0.000-0.034) ng/mL Total Protein 7.3 (6.3-8.2) g/dL Albumin 4.5 (3.5-5.0) g/dL 06/27/21 Range/Units 18:05 WBC (3.8-10.6) k/uL RBC (3.80-5.40) m/uL Hgb (11.4-16.0) gm/dL Hct (34.0-46.0) % MCV (80.0-100.0) fL MCH (25.0-35.0) pg MCHC (31.0-37.0) g/dL RDW (11.5-15.5) % Plt Count (150-450) k/uL MPV Neutrophils % % Lymphocytes % % Monocytes % % Eosinophils % % Basophils % % Neutrophils # (1.3-7.7) k/uL Lymphocytes # (1.0-4.8) k/uL Monocytes # (0-1.0) k/uL Eosinophils # (0-0.7) k/uL Basophils # (0-0.2) k/uL PT (9.0-12.0) sec INR (<1.2) APTT (22.0-30.0) sec Sodium (137-145) mmol/L Potassium (3.5-5.1) mmol/L Chloride (98-107) mmol/L Carbon Dioxide (22-30) mmol/L Anion Gap mmol/L BUN (7-17) mg/dL Creatinine (0.52-1.04) mg/dL Est GFR (CKD-EPI)AfAm (>60 ml/min/1.73 sqM) Est GFR (CKD-EPI)NonAf (>60 ml/min/1.73 sqM) Glucose (74-99) mg/dL Calcium (8.4-10.2) mg/dL Magnesium (1.6-2.3) mg/dL Total Bilirubin (0.2-1.3) mg/dL AST (14-36) U/L ALT (4-34) U/L Alkaline Phosphatase (38-126) U/L Troponin I <0.012 (0.000-0.034) ng/mL Total Protein (6.3-8.2) g/dL Albumin (3.5-5.0) g/dL Critical Care Time Critical Care Time: Yes Total Critical Care Time: 35 Disposition Clinical Impression: Unstable angina pectoris Disposition: ADMITTED IP TO THIS HOSP Referrals: Emmie Thakur MD [Primary Care Provider] - 1-2 days Time of Disposition: 19:43
[2021-06-27 18:27] LABS: INR 0.9 (<1.2); Prothrombin Time 10.2 sec (9.0-12.0)
[2021-06-27 18:32] LABS: ALT 17 U/L (4-34); AST 25 U/L (14-36); African American GFR (CKD) >90 (>60 ml/min/1.73 sqM); Albumin 4.5 g/dL (3.5-5.0); Alkaline Phosphatase 110 U/L (38-126); Anion Gap 11 mmol/L; Blood Urea Nitrogen 11 mg/dL (7-17); Calcium 9.4 mg/dL (8.4-10.2); Carbon Dioxide 21 mmol/L (22-30); Chloride 103 mmol/L (98-107); Glucose 101 mg/dL (74-99); Magnesium 1.9 mg/dL (1.6-2.3); Non-African American GFR(CKD) >90 (>60 ml/min/1.73 sqM); Potassium 3.7 mmol/L (3.5-5.1); Sodium 135 mmol/L (137-145); Total Bilirubin 0.6 mg/dL (0.2-1.3); Total Protein 7.3 g/dL (6.3-8.2)
--- NOTE | 2021-06-27 18:33 | XR ---
EXAMINATION TYPE: XR chest 2V DATE OF EXAM: 06/27/2021 COMPARISON: 11/05/2019 HISTORY: Chest pain TECHNIQUE: FINDINGS: Heart and mediastinum are normal. Lungs are clear. Diaphragm is normal. Bony thorax is inta ct. There are chest leads. There is mild pleural thickening at the lung apices. IMPRESSION: No active cardiopulmonary disease. No change.
[2021-06-27] MEDS ORDERED: HEPARIN SODIUM 1,000 UN/ML (10ML VL) IV ONE (19:40)
[2021-06-27] MEDS ORDERED: NITROGLYCERIN SL TABS 0.4 MG TAB SUBLINGUAL PRN (19:43)
[2021-06-27] MEDS ORDERED: HEPARIN SOD,PORK IN 0.45% NACL 25,000 UNIT in 0.45% NACL 1 250ML.BAG IV SCH (19:45)
[2021-06-27] MEDS ORDERED: HEPARIN SODIUM 1,000 UN/ML (10ML VL) IV PRN (22:41)
[2021-06-28] MEDS: NITROGLYCERIN OINT 1 INCH/GM PACKET TOPICAL SCH ×2 (00:54→06:15)
[2021-06-28] MEDS ORDERED: NICOTINE 21MG/24HR PATCH TRANSDERM STA (03:10)
[2021-06-28] MEDS ORDERED: ACETAMINOPHEN TAB 325 MG TAB PO STA (03:11)
[2021-06-28 07:47] VITALS: RESP 18
[2021-06-28] MEDS: ASPIRIN 81 MG PO SCH ×2 (08:57→09:46)
[2021-06-28] MEDS ORDERED: ASPIRIN 325 MG TAB PO SCH (09:00)
--- NOTE | 2021-06-28 10:04 | P.CRDCN ---
History of Present Illness Consult date: 06/28/21 History of present illness: HISTORY OF PRESENT ILLNESS: This is a 65-year-old female with a past medical history significant for hyperlipidemia and nicotine dependence. Patient does not follow with a rayon coner, but she used to see Dr. Becker in the past. We have been asked to see the patient in consultation for chest pain. Patient examined at the bedside. Patient states yesterday she was putting away groceries when she started having chest discomfort. She states the pain was in the middle of her chest and felt like a burning throbbing sensation. She states the pain went up into her jaw. She also reports the pain into her back. She denies feeling short of breath. She reports feeling diaphoretic. She also reports feeling nauseated. She states that she went to lay down in bed and took a Prilosec as she has a history of GERD and thought it was related to that. She states the pain lasted on and off until she came to the emergency room and then her pain resolved. She denies having any pain overnight or this morning. Patient is a current smoker and states she smokes 2-1/2 packs per day. She reports occasional alcohol use only on special occasions such as a wedding or birthday democrat. She denies any marijuana or drug use. She states that she does have a history of hyperlipidemia and is prescribed Lipitor on an outpatient basis. However she states her co-pay is $50 a month and she cannot afford it because she lives on $751 a month so she has not been taking it. EKG reveals sinus mechanism with ST depressions in inferior leads, similar to previous EKG. She does have some ST depression noted in V3-V6 which appears new compared to previous EKG. Chest xray negative for acute process Laboratory data: WBC 11.5. Hemoglobin 14.7. Platelet count 310. Sodium 135. Potassium 3.7. BUN 11. Creatinine 0.69. Magnesium 1.9. Troponin negative 3. Current home cardiac medications include aspirin 162 mg daily Most recent echocardiogram obtained in 2017 revealed ejection fraction 55-60%. Trace mitral regurgitation. Trace tricuspid regurgitation. Patient underwent Wallace stress test in 2015 which was moderately positive. She states she did not have a cardiac catheterization. Patient underwent a dobutamine stress test in December 2017 which was negative for ischemia. REVIEW OF SYSTEMS: At the time of my exam: CONSTITUTIONAL: Denies fever or chills. HEENT: Denies blurred vision, vision changes, or eye pain. Denies hemoptysis CARDIOVASCULAR: Denies chest pain. Denies orthopnea. Denies PND. Denies palpitations RESPIRATORY: Denies shortness of breath. GASTROINTESTINAL: Denies abdominal pain. Denies nausea or vomiting. HEMATOLOGIC: Denies bleeding disorders. GENITOURINARY: Denies any blood in urine. SKIN: Denies pruitis. Denies rash. PHYSICAL EXAM: VITAL SIGNS: Reviewed. GENERAL: Well-developed in no acute distress. HEENT: Head is normocephalic. Pupils are equal, round. Sclerae anicteric. Mucous membranes of the mouth are moist. Neck supple. No JVD or thyromegaly LUNGS: Respirations even and unlabored. Lungs essentially clear to auscultation bilaterally. HEART: Regular rate and rhythm. S1 and S2 heard. ABDOMEN: Soft. Nondistended. Nontender. EXTREMITIES: Normal range of motion. No clubbing or cyanosis. Peripheral pulses intact. No lower extremity edema NEUROLOGIC: Awake and alert. Oriented x 3. ASSESSMENT: Chest pain, troponin negative x 3 Hyperlipidemia, not on statin treatment Nicotine dependence GERD PLAN: An acute coronary event has been ruled out Obtain 2D echo to assess cardiac structure and function Check lipid panel Smoking cessation recommended Patient to undergo stress test today to assess for ischemia Further recommendations pending patient course Nurse practitioner note has been reviewed by physician. Signing provider agrees with the documented findings, assessment, and plan of care. 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 History of Any Multi-Drug Resistant Organisms: None Reported Past Surgical History: Appendectomy, Bladder Surgery, Section, Cholecystectomy, Hysterectomy, Uterine Ablation Additional Past Surgical History / Comment(s): shaheed 7-19, COLONOSCOPY POLYPECTOMY, EGD, RT WRIST GANGLION CYST REMOVED., PARTIAL HYSTERECTOMY (HAS OVARIES). Past Anesthesia/Blood Transfusion Reactions: No Reported Reaction, Family History of Problems w/ Anesthesia Additional Past Anesthesia/Blood Transfusion Reaction / Comment(s): mother had problems coming out of anesthesia. no problems with prior blood transfusions Past Psychological History: Anxiety, Depression Smoking Status: Current every day smoker Past Alcohol Use History: Rare Past Drug Use History: Marijuana - Past Family History Father Family Medical History: Cancer, CVA/TIA, Osteoarthritis (OA) Additional Family Medical History / Comment(s): LUNG CA AND CIRRHOSIS. Mother Family Medical History: COPD, Osteoarthritis (OA) Additional Family Medical History / Comment(s): GLAUCOMA Medications and Allergies Home Medications Medication Instructions Recorded Confirmed Type Aspirin [Adult Low Dose Aspirin EC] 162 mg PO DAILY 03/29/19 06/27/21 History Multivit-Min/Iron/Folic/Lutein 1 tab PO WE 05/02/20 06/27/21 History [Centrum Silver Women Tablet] Cholecalciferol [Vitamin D3 (25 50 mcg PO DAILY 06/27/21 06/27/21 History Mcg = 1000 Iu)] Allergies Allergy/AdvReac Type Severity Reaction Status Date / Time latex Allergy Rash/Hives Verified 06/27/21 18:29 sulfamethoxazole Allergy Rash/Hives Verified 06/27/21 18:29 [From Bactri] Physical Exam Vitals: Vital Signs Temp Pulse Resp BP Pulse Ox 06/28/21 07:44 62 18 104/56 97 06/28/21 06:16 51 L 16 94/56 98 06/28/21 03:23 98.0 F 57 L 18 131/84 99 06/27/21 22:03 97.7 F 61 18 118/71 99 06/27/21 19:54 99.4 F 57 L 16 119/76 98 06/27/21 18:41 50 L 18 118/71 98 06/27/21 18:00 63 18 129/80 100 06/27/21 17:29 98.3 F 85 17 161/103 97 Intake and Output 06/27/21 06/28/21 06/28/21 22:59 06:59 14:59 Intake Total 89.356 Balance 89.356 Intake: Intake, IV Titration 89.356 Amount Heparin Sod,Pork in 0.45% 89.356 NaCl 25,000 unit In 0.45 % NaCl 1 250ml.bag @ 12 UNITS/KG/HR 8.818 mls/hr IV .Q24H [facility] Rx#: [id number] Other: Weight 73.482 kg Results 06/27/21 18:05 06/27/21 18:05 Cardiac Enzymes 06/27/21 06/27/21 06/27/21 Range/Units 18:05 18:05 21:10 AST 25 (14-36) U/L Troponin I <0.012 <0.012 (0.000-0.034) ng/mL 06/28/21 Range/Units 00:57 AST (14-36) U/L Troponin I <0.012 (0.000-0.034) ng/mL Coagulation 06/27/21 06/28/21 06/28/21 Range/Units 18:05 00:57 06:11 PT 10.2 (9.0-12.0) sec APTT 23.0 45.8 H 38.5 H (22.0-30.0) sec CBC 06/27/21 Range/Units 18:05 WBC 11.5 H (3.8-10.6) k/uL RBC 4.67 (3.80-5.40) m/uL Hgb 14.7 (11.4-16.0) gm/dL Hct 44.5 (34.0-46.0) % Plt Count 310 (150-450) k/uL Comprehensive Metabolic Panel 06/27/21 Range/Units 18:05 Sodium 135 L (137-145) mmol/L Potassium 3.7 (3.5-5.1) mmol/L Chloride 103 (98-107) mmol/L Carbon Dioxide 21 L (22-30) mmol/L BUN 11 (7-17) mg/dL Creatinine 0.69 (0.52-1.04) mg/dL Glucose 101 H (74-99) mg/dL Calcium 9.4 (8.4-10.2) mg/dL AST 25 (14-36) U/L ALT 17 (4-34) U/L Alkaline Phosphatase 110 (38-126) U/L Total Protein 7.3 (6.3-8.2) g/dL Albumin 4.5 (3.5-5.0) g/dL Current Medications Generic Name Dose Route Start Last Admin Trade Name Freq PRN Reason Stop Dose Admin Aspirin 325 mg 06/28/21 09:00 Aspirin 325 Mg Tab PO DAILY VENECIA Heparin Sodium (Porcine) 0 unit 06/27/21 22:41 06/28/21 07:01 Heparin Sodium 1,000 Un/Ml (10ml Vl) IV 1,837 unit Q6HR PRN Administration Low PTT Protocol Heparin Sodium/Sodium Chloride 250 mls @ 8.818 mls/hr 06/27/21 19:45 06/28/21 07:03 25,000 unit/ Sodium Chloride IV 14.72 units/kg/hr .Q24H VENECIA 10.818 mls/hr Titration Protocol 12 UNITS/KG/HR Nitroglycerin 0.4 mg 06/27/21 19:43 Nitroglycerin Sl Tabs 0.4 Mg Tab SUBLINGUAL Q5M PRN Chest Pain Nitroglycerin 1 inch 06/28/21 00:00 06/28/21 06:15 Nitroglycerin Oint 1 Inch/Gm Packet TOPICAL Not Given Q6HR [facility] Intake and Output 06/27/21 06/28/21 06/28/21 22:59 06:59 14:59 Intake Total 89.356 Balance 89.356 Intake: Intake, IV Titration 89.356 Amount Heparin Sod,Pork in 0.45% 89.356 NaCl 25,000 unit In 0.45 % NaCl 1 250ml.bag @ 12 UNITS/KG/HR 8.818 mls/hr IV .Q24H [facility] Rx#: [id number] Other: Weight 73.482 kg 06/27/21 18:05 06/27/21 18:05
--- NOTE | 2021-06-28 11:01 | ECHOF ---
Referral Reason:Rule out heart disease MEASUREMENTS -------- HEIGHT: 172.7 cm WEIGHT: 73.5 kg BP: 104/56 RVIDd: 3.0 cm (< 3.3) IVSd: 1.1 cm (0.6 - 1.1) LVIDd: 4.4 cm (3.9 - 5.3) LVPWd: 1.2 cm (0.6 - 1.1) IVSs: 1.5 cm LVIDs: 3.1 cm LVPWs: 1.2 cm LAESV Index (A-L): 28.92 ml/m Ao Diam: 3.4 cm (2.0 - 3.7) AV Cusp: 2.0 cm (1.5 - 2.6) LA Diam: 3.6 cm (2.7 - 3.8) MV EXCURSION: 16.631 mm (> 18.000) MV EF SLOPE: 161 mm/s (70 - 150) EPSS: 1.0 cm MV E Michael: 0.91 m/s MV DecT: 185 ms MV A Michael: 0.58 m/s MV E/A Ratio: 1.57 RAP: 5.00 mmHg RVSP: 15.34 mmHg FINDINGS -------- Sinus rhythm. This was a technically adequate study. The left ventricular size is normal. Left ventricular wall thickness is normal. Overall left vent ricular systolic function is normal with, an EF between 55 - 60 %. The diastolic filling pattern is normal for the age of the patient 9.67. The right ventricle is normal in size. Normal LA size by volume 22+/-6 ml/m2. The right atrial size is normal. Interatrial and interventricular septum intact. The aortic valve is trileaflet and appears structurally normal. There is no evidence of aortic regu rgitation. There is no evidence of aortic stenosis. Mild mitral regurgitation is present. Mild tricuspid regurgitation present. There is no evidence of pulmonary hypertension. The right v entricular systolic pressure, as measured by Doppler, is 15.34mmHg. There is no pulmonic regurgitation present. The aortic root size is normal. The inferior vena cava is dilated with poor inspiratory collapse which is consistent with estimated r ight atrial pressure of 20 mmHg. There is no pericardial effusion. CONCLUSIONS -------- 1. Sinus rhythm. 2. The left ventricular size is normal. 3. Left ventricular wall thickness is normal. 4. Overall left ventricular systolic function is normal with, an EF between 55 - 60 %. 5. The diastolic filling pattern is normal for the age of the patient 9.67 6. Mild mitral regurgitation is present. 7. Mild tricuspid regurgitation present. 8. The inferior vena cava is dilated with poor inspiratory collapse which is consistent with estimate d right atrial pressure of 20 mmHg. PILOT SUBMERSIBLE: Norah Morales RDCS
--- NOTE | 2021-06-28 12:19 | NM ---
EXAMINATION TYPE: NM stress cardiolite complete DATE OF EXAM: 06/28/2021 COMPARISON: NONE HISTORY: 65-year-old female with chest pain, unstable angina. TECHNIQUE: After the intravenous administration of 10.1 mCi Tc 99m Sestamibi - Rest images obtained 45 minutes post injection. The patient exercised using a ALECIA protocol and 1 minute prior to peak exercise was injected with 25 mCi Tc 99m Sestamibi - Stress images obtained 20 minutes post injection . FINDINGS: Targeted heart rate was 132 BPM. Heart rate was achieved (144 BPM). Total exercise time 7 minutes 14 seconds. Review of stress and rest SPECT images demonstrates no distinct perfusion abnormality. Gated analysis shows normal wall motion with an estimated left ventricular ejection fraction of 67 %. TID is calculated at 0.89, within normal limits. IMPRESSION: No scintigraphic evidence for reversible ischemia
--- NOTE | 2021-06-28 14:41 | P.HPIM ---
History of Present Illness Please consider this note as combined H&P and discharge summary This is a pleasant 65 years old female with past medical history of COPD, GERD, hyperlipidemia, osteoarthritis. She is a patient of Dr. garibay. Patient presents because of chest pain. She follows up with Dr. garibay. And she is to see Dr. Becker her construction management assistant This time presents because of chest pain which lasted for about 20 minutes, it happens after she was lying down her grocery and went up from bending position she felt dizzy, lightheaded and she started having burning chest pain radiating to both necks sites and Jaws sides. She reports her troponin was about 10/10 but now is completely resolved as 0/10 in the size the neck was also get into her back She states that she having these attacks of chest pain and burning radiating to the neck on on off frequently for the last 5 years. She had some headache last night but resolved with atenolol and now she does not have any headache. No dizziness. Also she denies any chest pain, no dyspnea, no coughing. Currently also denies headache, no blurred vision or slurred speech. This or numbness. Denies vomiting or diarrhea. No change in her urine or bowel habits Also she has chronic hearing difficulty and tinnitus in the left ear which also is been going on for years. She smokes about 2.5 packs per day Vitas looks stable mild leukocytosis of 11.5 k, rest of cbc, inr and bmp and liver enzymes are unremarkable. troponin 3 are negative with less than 0.012. ekg showing normal sinus rhythm with no significant st-t changes and qtc 421 2 chest x-ray: no acute process. In the emergency room patient was given aspirin 325 mg and heparin drip was initiated as well as nitroglycerin and nicotine patch at bedside and all their questions were answered Review of Systems CONSTITUTIONAL: No fever, no malaise, no fatigue. HEENT: No recent visual problems or hearing problems. Denied any sore throat. CARDIOVASCULAR: No orthopnea, PND, no palpitations, no syncope. PULMONARY: No shortness of breath, no cough, no hemoptysis. GASTROINTESTINAL: No diarrhea, no nausea, no vomiting, no abdominal pain. Normoactive bowel sounds. NEUROLOGICAL: No headaches, no weakness, no numbness. HEMATOLOGICAL: Denies any bleeding or petechiae. GENITOURINARY: Denies any burning micturition, frequency, or urgency. MUSCULOSKELETAL/RHEUMATOLOGICAL: Denies any joint pain, swelling, or any muscle pain. ENDOCRINE: Denies any polyuria or polydipsia. Past Medical History Past Medical History: COPD, GERD/Reflux, Hyperlipidemia, Osteoarthritis (OA) Additional Past Medical History / Comment(s): PRE CA UTERINE, CHEST TUBE X1 SPONTANEOUS PNEUMOTHORAX X2, HX ENVIRONMENTAL ALLERGIES., STATES HX OF PRE-CA NCEROUS COLON POLYPS. History of Any Multi-Drug Resistant Organisms: None Reported Past Surgical History: Appendectomy, Bladder Surgery, Section, Cholecystectomy, Hysterectomy, Uterine Ablation Additional Past Surgical History / Comment(s): shaheed 06-16-19, COLONOSCOPY POLYPECTOMY, EGD, RT WRIST GANGLION CYST REMOVED., PARTIAL HYSTERECTOMY (HAS OVARIES). Past Anesthesia/Blood Transfusion Reactions: No Reported Reaction, Family History of Problems w/ Anesthesia Additional Past Anesthesia/Blood Transfusion Reaction / Comment(s): mother had problems coming out of anesthesia. no problems with prior blood transfusions Past Psychological History: Anxiety, Depression Smoking Status: Current every day smoker Past Alcohol Use History: Rare Past Drug Use History: Marijuana - Past Family History Father Family Medical History: Cancer, CVA/TIA, Osteoarthritis (OA) Additional Family Medical History / Comment(s): LUNG CA AND CIRRHOSIS. Mother Family Medical History: COPD, Osteoarthritis (OA) Additional Family Medical History / Comment(s): GLAUCOMA Medications and Allergies Home Medications Medication Instructions Recorded Confirmed Type Aspirin [Adult Low Dose Aspirin EC] 162 mg PO DAILY 03/29/19 06/27/21 History Multivit-Min/Iron/Folic/Lutein 1 tab PO WE 05/02/20 06/27/21 History [Centrum Silver Women Tablet] Cholecalciferol [Vitamin D3 (25 50 mcg PO DAILY 06/27/21 06/27/21 History Mcg = 1000 Iu)] Atorvastatin [Lipitor] 40 mg PO HS #30 tab 06/28/21 Rx Allergies Allergy/AdvReac Type Severity Reaction Status Date / Time latex Allergy Rash/Hives Verified 06/27/21 18:29 sulfamethoxazole Allergy Rash/Hives Verified 06/27/21 18:29 [From Bactrim] Physical Exam Vitals: Vital Signs Temp Pulse Resp BP Pulse Ox 06/28/21 07:44 62 18 104/56 97 06/28/21 06:16 51 L 16 94/56 98 06/28/21 03:23 98.0 F 57 L 18 131/84 99 06/27/21 22:03 97.7 F 61 18 118/71 99 06/27/21 19:54 99.4 F 57 L 16 119/76 98 06/27/21 18:41 50 L 18 118/71 98 06/27/21 18:00 63 18 129/80 100 06/27/21 17:29 98.3 F 85 17 161/103 97 Intake and Output 06/27/21 06/28/21 06/28/21 22:59 06:59 14:59 Intake Total 89.356 Balance 89.356 Intake: Intake, IV Titration 89.356 Amount Heparin Sod,Pork in 0.45% 89.356 NaCl 25,000 unit In 0.45 % NaCl 1 250ml.bag @ 12 UNITS/KG/HR 8.818 mls/hr IV .Q24H [facility] Rx#: [id number] Other: Weight 73.482 kg GENERAL: The patient is alert and oriented x3, not in any acute distress. Well developed, well nourished. HEENT: Pupils are round and equally reacting to light. EOMI. No scleral icterus. No conjunctival pallor. Normocephalic, atraumatic. No pharyngeal erythema. No thyromegaly. CARDIOVASCULAR: S1 and S2 present. No murmurs, rubs, or gallops. PULMONARY: Chest is clear to auscultation, no wheezing or crackles. ABDOMEN: Soft, nontender, nondistended, normoactive bowel sounds. No palpable organomegaly. MUSCULOSKELETAL: No joint swelling or deformity. EXTREMITIES: No cyanosis, clubbing, or pedal edema. NEUROLOGICAL: Gross neurological examination did not reveal any focal deficits. SKIN: No rashes. No petechiae Results CBC & Chem 7: 06/27/21 18:05 06/27/21 18:05 Labs: Abnormal Lab Results - Last 24 Hours (Table) 06/27/21 06/27/21 06/28/21 Range/Units 18:05 18:05 00:57 WBC 11.5 H (3.8-10.6) k/uL APTT 45.8 H (22.0-30.0) sec Sodium 135 L (137-145) mmol/L Carbon Dioxide 21 L (22-30) mmol/L Glucose 101 H (74-99) mg/dL 06/28/21 Range/Units 06:11 WBC (3.8-10.6) k/uL APTT 38.5 H (22.0-30.0) sec Sodium (137-145) mmol/L Carbon Dioxide (22-30) mmol/L Glucose (74-99) mg/dL Assessment and Plan Assessment: Chest pain, cardiac causes were ruled out with negative stress test. Chest pain resolved completely episodic dizziness and lightheadedness with tinnitus and drinking in the ear. It has been going on for 5 years. Patient wants to follow up as an outpatient Nicotine dependence, patient was counseled to quit Hyperlipidemia History of GERD COPD, no acute exacerbation History of osteoarthritis Plan: This is a pleasant 65 years old female who presents with chest pain. We'll do serial troponins, cardiology consult. Continue with aspirin echocardiogram showed ejection fraction of 55-60% If stress test on construction management assistant cleared her for discharge Labs and medication were reviewed.. Continue same treatment. Continue with symptomatic treatment. Resume home medication. Monitor lytes and vitals. DVT and GI prophylaxis. Further recommendations depends on the clinical course of the patient Patient back to her normal self and she is currently asymptomatic and she does not want to the hospital and she wants to go home and follow up with her PCP Dr. phoenix Marquez she told me she already has an appointment with Dr. garibay on med that appointment I suggested for the patient to see ENT and neurologist for further evaluation s rosy she has the symptoms of episodic lightheadedness and tinnitus in her left ear with hearing difficulty besides episodes of burning in her chest and neck. Patient says that she is back to her normal self and she does not want to stay in the hospital, this looks fine as patient has close follow-up appointment and she is asymptomatic currently and her symptoms are chronic Dr. garibay and I discussed the case with her with a recommendation for referral for neurologist or ENT as an outpatient and she kindly took note of these. Other than that patient is medically stable for discharge and guarded prognosis however she needs follow-up as an outpatient Patient was extensively counseled to quit smoking and she agrees to try Time spent more than 35 minutes
[2021-06-28 14:50] VITALS: BP 108/72; PULSE 62; TEMP 98.3
[2021-06-28 19:56] LABS: Chol/HDL Ratio 6.83; LDL Cholesterol,Calculated 151.4 mg/dL (0.0-131.0); VLDL Calculation 23.6 mg/dL (5.00-40.00)
[2021-06-28] MEDS ORDERED: ATORVASTATIN 40 MG TAB PO SCH (21:00)
--- NOTE | 2021-06-29 12:47 | EST ---
EXERCISE STRESS DATE OF SERVICE: INDICATION: Chest pain. AGE: 65 SEX: F HT: 5'8" WT: 161 lbs. PROTOCOL: Cardiolite STAGE: 3 DURATION OF EXERCISE: 7:14 HEART RATE REST: 59 BLOOD PRESSURE REST: 104/68 MAXIMUM HEART RATE ACHIEVED: 144 MAXIMUM BLOOD PRESSURE: 156/76 85% MPHR: 132 100% MPHR: 155 METS: 8.5 STRESS DATA: Heart rate is 59, pressure is 104/68 mmHg. Baseline EKG showed sinus mechanism. The patient exercised on the treadmill according to Wallace protocol for a total of 7 minutes and achieved 8.5 METs. Max heart rate was 144 which is about 93% of maximum predicted heart rate. Maximum blood pressure was 156/76 mmHg. Clinically, the patient did not have symptoms and the EKG showed about 0.[address]-segment depression. CONCLUSION: 1. Excellent exercise tolerance. 2. Mild EKG changes in response to exercise. 3. Please follow up on the Cardiolite portion on a separate report from Radiology Department. MMODL / IJN: [id number] /
== END 2021-06-28 15:07 | disposition home or self-care (01) ==
LOC: EC 17:25 → 6NMEDSUR 19:44
PROVIDERS: ADMIT Hospitalist; ATTEND Hospitalist
DX: R07.9 Chest pain, unspecified (principal); K21.9 Gastro-esophageal reflux disease without esophagitis; R11.0 Nausea; E78.00 Pure hypercholesterolemia, unspecified; E78.5 Hyperlipidemia, unspecified; F17.210 Nicotine dependence, cigarettes, uncomplicated; F32.9 Major depressive disorder, single episode, unspecified; F41.9 Anxiety disorder, unspecified; J44.9 Chronic obstructive pulmonary disease, unspecified; Z79.82 Long term (current) use of aspirin; Z79.899 Other long term (current) drug therapy; Z80.1 Family history of malignant neoplasm of trachea, bronchus and lung; Z82.49 Family history of ischemic heart disease and other diseases of the circulatory system; Z82.5 Family history of asthma and other chronic lower respiratory diseases; Z85.038 Personal history of other malignant neoplasm of large intestine; Z90.711 Acquired absence of uterus with remaining cervical stump
CPT/HCPCS: 99291; 96376 ×3; 96365; 96366 ×2; 36415; 93017; 93005 ×2; 93306; 80061; 80053; 83735; 84484 ×2; 85025; 85610; 85730 ×2; 71046; 78452; G0378; A9500; S4990; J1644 ×3

== ENCOUNTER → 2021-07-25 | Outpatient (CLI) | payer MEDICARE ==
--- NOTE | 2021-07-25 12:58 | MR ---
EXAMINATION TYPE: MR brain wo con DATE OF EXAM: 07/25/2021 12:32 PM COMPARISON: NONE HISTORY: Dizziness, tinnitus left ear, lightheadedness FINDINGS: The ventricles, basal cisterns and sulci overlying the cerebral convexities are mildly enlarged. There is evidence of mild periventricular white matter ischemic demyelination. Remote deep white matter insults are also noted. No acute edema is seen on diffusion weighted imaging. There is no evidence for midline shift or mass effect. Acute intracranial hemorrhage or extra-axial collection is not evident. The paranasal sinuses and mastoid air cells are well-aerated. IMPRESSION: Age-related atrophic and chronic small vessel ischemic change. No acute intracranial process at this time.
== END | disposition home or self-care (01) ==
LOC: RADMRIMAIN 11:48
PROVIDERS: ATTEND Family Medicine
DX: G31.9 Degenerative disease of nervous system, unspecified (principal); I67.89 Other cerebrovascular disease; H93.12 Tinnitus, left ear; H91.92 Unspecified hearing loss, left ear; R42 Dizziness and giddiness
CPT/HCPCS: 70551

== ENCOUNTER → 2021-07-27 | Outpatient (CLI) | payer MEDICARE ==
--- NOTE | 2021-07-28 09:03 | US ---
EXAMINATION TYPE: US carotid duplex BILAT DATE OF EXAM: 07/27/2021 COMPARISON: NONE CLINICAL HISTORY: H93.12 Tinnitus, H91.92 hearing problem L ear, R42 Intermitt. dizziness EXAM MEASUREMENTS: RIGHT: Peak Systolic Velocity (PSV) cm/sec ----- Right CCA: 93.0 ----- Right ICA: 102.9 ----- Right ECA: 69.4 ICA/CCA ratio: 1.1 RIGHT: End Diastole cm/sec ----- Right CCA: 27.0 ----- Right ICA: 36.9 ----- Right ECA: 17.1 LEFT: Peak Systolic Velocity (PSV) cm/sec ----- Left CCA: 98.5 ----- Left ICA: 114.7 ----- Left ECA: 97.8 ICA/CCA ratio: 1.2 LEFT: End Diastole cm/sec ----- Left CCA: 30.3 ----- Left ICA: 38.3 ----- Left ECA: 20.2 VERTEBRALS (direction of flow): Right Vertebral: Antegrade Left Vertebral: Antegrade Rhythm: Normal Grayscale, color Doppler, spectral Doppler imaging obtained of the carotid arteries. Waveform analysi s does not show significant stenosis of the internal carotid arteries. mild plaque bilateral bifurcat ions. no evidence of elevated velocities IMPRESSION: No hemodynamic significant stenosis of the proximal internal carotid arteries by Doppler criteria, an indirect measurement of carotid stenosis. Criteria for Assigning % of Stenosis / Diameter reduction (Estimation based on the indirect measurements of the internal carotid artery velocities (ICA PSV). 1. Normal (no stenosis)=ICA PSV < 125 cm/s: ratio < 2.0: ICA EDV<40 cm/s. 2. Less than 50% stenosis=ICA PSV < 125 cm/s: ratio < 2.0: ICA EDV<40 cm/s. 3. 50 to 69% stenosis=ICA PSV of 125 to 230 cm/s: ration 2.0 ? 4.0: ICA EDV 40-100 cm/s. 4. Greater than 70% stenosis to near occlusion= ICA PSV > 230 cm/s: ratio > 4.0: ICA EDV > 100 cm/s. 5. Near occlusion= ICA PSV velocities may be low or undetectable: variable ratio and ICA EDV. 6. Total occlusion=unable to detect flow.
== END | disposition home or self-care (01) ==
LOC: RADUSWWP 16:42
PROVIDERS: ATTEND Family Medicine
DX: H93.12 Tinnitus, left ear (principal); H91.92 Unspecified hearing loss, left ear; R42 Dizziness and giddiness
CPT/HCPCS: 93880

== ENCOUNTER → 2021-08-14 | Outpatient (CLI) | payer MEDICARE ==
--- NOTE | 2021-08-16 14:13 | MM ---
Reason for exam: screening (asymptomatic). Last mammogram was performed 2 years and 4 months ago. History: Patient is postmenopausal and has history of other cancer at age 36. Physical Findings: A clinical breast exam by your physician is recommended on an annual basis and results should be correlated with mammographic findings. MG 3D Screening Mammo W/Cad Bilateral CC and MLO view(s) were taken. Prior study comparison: April 07, 2019, bilateral MG screening mammo w CAD. The breast tissue is heterogeneously dense. This may lower the sensitivity of mammography. No significant changes when compared with prior studies. ASSESSMENT: Benign, BI-RAD 2 RECOMMENDATION: Routine screening mammogram of both breasts in 1 year.
== END | disposition home or self-care (01) ==
LOC: RADMAMWWP 15:11
PROVIDERS: ATTEND Family Medicine
DX: Z12.31 Encounter for screening mammogram for malignant neoplasm of breast (principal); R42 Dizziness and giddiness
CPT/HCPCS: 77063; 77067; 84550

== ENCOUNTER 2021-12-05 23:06 | Emergency (ER) | payer MEDICARE ==
[2021-12-05 23:23] LABS: Glucose,Whole Blood 116 mg/dL (75-99)
--- NOTE | 2021-12-05 23:48 | ED ---
Dizziness HPI - General Chief Complaint: Syncope Stated Complaint: Near Syncope Time Seen by Provider: 12/05/21 23:21 Source: patient Mode of arrival: EMS Limitations: physical limitation - History of Present Illness Initial Comments: Shouldn't is a 66-year-old woman who presents to be evaluated for an episode in which she nearly passed out. The patient states that she had been sitting and writing her nonverbal, she reached down to turn on a heater, and then when she sat back down, she noted that she was feeling lightheaded like she would pass out. She also broke into a sweat and she was a little nauseated. The patient denied any dyspnea. No chest pain or palpitations. She and her became very nervous and they called EMS who brought the patient here for evaluation. The patient feels like she is back at her baseline now. Other review of systems she notes that she had some substernal chest pressure that lasted number of hours yesterday. It did subsequently resolve MD Complaint: near syncope -: minutes(s) Timing: sudden onset Description: lightheadedness, near-syncope History of Same: No History of Trauma: No Improves With: remaining still Associated Symptoms: diaphoresis - Related Data Home Medications Medication Instructions Recorded Confirmed Aspirin [Adult Low Dose Aspirin EC] 162 mg PO DAILY 03/29/19 06/27/21 Multivit-Min/Iron/Folic/Lutein 1 tab PO WE 05/02/20 06/27/21 [Centrum Silver Women Tablet] Cholecalciferol [Vitamin D3 (25 50 mcg PO DAILY 06/27/21 06/27/21 Mcg = 1000 Iu)] Previous Rx's Medication Instructions Recorded Atorvastatin [Lipitor] 40 mg PO HS #30 tab 06/28/21 Allergies Allergy/AdvReac Type Severity Reaction Status Date / Time latex Allergy Rash/Hives Verified 06/27/21 18:29 sulfamethoxazole Allergy Rash/Hives Verified 06/27/21 18:29 [From Bactrim] Review of Systems ROS Statement: Those systems with pertinent positive or pertinent negative responses have been documented in the HPI. ROS Other: All systems not noted in ROS Statement are negative. Constitutional: Denies: fever, chills Respiratory: Denies: cough, dyspnea Cardiovascular: Reports: as per HPI, syncope. Denies: chest pain, palpitations, orthopnea, edema Gastrointestinal: Reports: nausea. 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 History of Any Multi-Drug Resistant Organisms: None Reported Past Surgical History: Appendectomy, Bladder Surgery, Section, Cholecystectomy, Hysterectomy, Uterine Ablation Additional Past Surgical History / Comment(s): shaheed 06-16-19, COLONOSCOPY POLYPECTOMY, EGD, RT WRIST GANGLION CYST REMOVED., PARTIAL HYSTERECTOMY (HAS OVARIES). Past Anesthesia/Blood Transfusion Reactions: No Reported Reaction, Family History of Problems w/ Anesthesia Additional Past Anesthesia/Blood Transfusion Reaction / Comment(s): mother had problems coming out of anesthesia. no problems with prior blood transfusions Past Psychological History: Anxiety, Depression Smoking Status: Current every day smoker Past Alcohol Use History: Rare Past Drug Use History: Marijuana - Past Family History Father Family Medical History: Cancer, CVA/TIA, Osteoarthritis (OA) Additional Family Medical History / Comment(s): LUNG CA AND CIRRHOSIS. Mother Family Medical History: COPD, Osteoarthritis (OA) Additional Family Medical History / Comment(s): GLAUCOMA General Exam Limitations: physical limitation General appearance: alert, in no apparent distress Head exam: Present: atraumatic, normocephalic Eye exam: Present: normal appearance. Absent: scleral icterus, conjunctival injection Neck exam: Present: normal inspection Respiratory exam: Present: normal lung sounds bilaterally. Absent: respiratory distress, wheezes, rales, rhonchi, stridor Cardiovascular Exam: Present: regular rate, normal rhythm, normal heart sounds. Absent: systolic murmur, diastolic murmur, rubs, gallop GI/Abdominal exam: Present: soft. Absent: distended, tenderness, guarding, rebound, rigid, mass Extremities exam: Present: normal capillary refill. Absent: tenderness, pedal edema, calf tenderness Back exam: Present: normal inspection Neurological exam: Present: alert Skin exam: Present: warm, dry, intact, normal color. Absent: rash Course Vital Signs 12/05/21 12/06/21 12/06/21 23:12 00:00 03:12 Pulse Rate 64 72 75 Respiratory 16 16 Rate Blood Pressure 139/87 131/77 107/68 O2 Sat by Pulse 97 95 97 Oximetry EKG Findings - EKG Results: EKG: interpreted by ERMD, sinus rhythm (Rate 66 bpm), normal axis - Blocks, [place], Hypertrophy, ST Abn: Repolarization changes or abnormalities: nonspecific abnormality, ST segment, and/or T wave Medical Decision Making - Lab Data Result diagrams: 12/05/21 23:40 12/05/21 23:40 Lab Results 12/05/21 12/05/21 12/05/21 Range/Units 23:22 23:40 23:40 WBC 15.1 H (3.8-10.6) k/uL RBC 4.41 (3.80-5.40) m/uL Hgb 14.2 (11.4-16.0) gm/dL Hct 43.8 (34.0-46.0) % MCV 99.3 (80.0-100.0) fL MCH 32.1 (25.0-35.0) pg MCHC 32.4 (31.0-37.0) g/dL RDW 13.4 (11.5-15.5) % Plt Count 298 (150-450) k/uL MPV 7.6 Neutrophils % 65 % Lymphocytes % 28 % Monocytes % 3 % Eosinophils % 2 % Basophils % 1 % Neutrophils # 9.9 H (1.3-7.7) k/uL Lymphocytes # 4.3 (1.0-4.8) k/uL Monocytes # 0.5 (0-1.0) k/uL Eosinophils # 0.3 (0-0.7) k/uL Basophils # 0.1 (0-0.2) k/uL PT 10.5 (9.0-12.0) sec INR 1.0 (<1.2) APTT 20.3 L (22.0-30.0) sec Sodium (137-145) mmol/L Potassium (3.5-5.1) mmol/L Chloride (98-107) mmol/L Carbon Dioxide (22-30) mmol/L Anion Gap mmol/L BUN (7-17) mg/dL Creatinine (0.52-1.04) mg/dL Est GFR (CKD-EPI)AfAm (>60 ml/min/1.73 sqM) Est GFR (CKD-EPI)NonAf (>60 ml/min/1.73 sqM) Glucose (74-99) mg/dL POC Glucose (mg/dL) 116 H (75-99) mg/dL POC Glu Route Aide ID Reynaldo [place] Calcium (8.4-10.2) mg/dL Total Bilirubin (0.2-1.3) mg/dL AST (14-36) U/L ALT (4-34) U/L Alkaline Phosphatase (38-126) U/L Troponin I (0.000-0.034) ng/mL Total Protein (6.3-8.2) g/dL Albumin (3.5-5.0) g/dL Urine Color Urine Appearance (Clear) Urine pH (5.0-8.0) Ur Specific [place] (1.001-1.035) Urine Protein (Negative) Urine Glucose (UA) (Negative) Urine Ketones (Negative) Urine Blood (Negative) Urine Nitrite (Negative) Urine Bilirubin (Negative) Urine Urobilinogen (<2.0) mg/dL Ur Leukocyte Esterase (Negative) Urine RBC (0-5) /hpf Urine WBC (0-5) /hpf Ur Squamous Epith Cells (0-4) /hpf Urine Bacteria (None) /hpf Hyaline Casts (0-2) /lpf Urine Mucus (None) /hpf 12/05/21 12/05/21 12/06/21 Range/Units 23:40 23:40 00:15 WBC (3.8-10.6) k/uL RBC (3.80-5.40) m/uL Hgb (11.4-16.0) gm/dL Hct (34.0-46.0) % MCV (80.0-100.0) fL MCH (25.0-35.0) pg MCHC (31.0-37.0) g/dL RDW (11.5-15.5) % Plt Count (150-450) k/uL MPV Neutrophils % % Lymphocytes % % Monocytes % % Eosinophils % % Basophils % % Neutrophils # (1.3-7.7) k/uL Lymphocytes # (1.0-4.8) k/uL Monocytes # (0-1.0) k/uL Eosinophils # (0-0.7) k/uL Basophils # (0-0.2) k/uL PT (9.0-12.0) sec INR (<1.2) APTT (22.0-30.0) sec Sodium 137 (137-145) mmol/L Potassium 3.6 (3.5-5.1) mmol/L Chloride 104 (98-107) mmol/L Carbon Dioxide 24 (22-30) mmol/L Anion Gap 9 mmol/L BUN 17 (7-17) mg/dL Creatinine 0.79 (0.52-1.04) mg/dL Est GFR (CKD-EPI)AfAm >90 (>60 ml/min/1.73 sqM) Est GFR (CKD-EPI)NonAf 79 (>60 ml/min/1.73 sqM) Glucose 121 H (74-99) mg/dL POC Glucose (mg/dL) (75-99) mg/dL POC Glu Route Aide ID Calcium 8.7 (8.4-10.2) mg/dL Total Bilirubin 0.5 (0.2-1.3) mg/dL AST 18 (14-36) U/L ALT 13 (4-34) U/L Alkaline Phosphatase 88 (38-126) U/L Troponin I <0.012 (0.000-0.034) ng/mL Total Protein 6.3 (6.3-8.2) g/dL Albumin 3.7 (3.5-5.0) g/dL Urine Color Yellow Urine Appearance Cloudy H (Clear) Urine pH 5.5 (5.0-8.0) Ur Specific [place] 1.023 (1.001-1.035) Urine Protein 1+ H (Negative) Urine Glucose (UA) Negative (Negative) Urine Ketones Negative (Negative) Urine Blood Small H (Negative) Urine Nitrite Negative (Negative) Urine Bilirubin Negative (Negative) Urine Urobilinogen 3.0 (<2.0) mg/dL Ur Leukocyte Esterase Trace H (Negative) Urine RBC 3 (0-5) /hpf Urine WBC 8 H (0-5) /hpf Ur Squamous Epith Cells 7 H (0-4) /hpf Urine Bacteria Rare H (None) /hpf Hyaline Casts 52 H (0-2) /lpf Urine Mucus Many H (None) /hpf Disposition Clinical Impression: Pre-syncope Disposition: HOME SELF-CARE Condition: Good Instructions (If sedation given, give patient instructions): Near Syncope (ED) Is patient prescribed a controlled substance at d/c from ED?: No Referrals: Emmie Thakur MD [Primary Care Provider] - 1-2 days
[2021-12-06 00:22] LABS: Partial Thromboplastin Time 20.3 sec (22.0-30.0); Prothrombin Time 10.5 sec (9.0-12.0)
[2021-12-06 00:28] LABS: ALT 13 U/L (4-34); AST 18 U/L (14-36); African American GFR (CKD) >90 (>60 ml/min/1.73 sqM); Albumin 3.7 g/dL (3.5-5.0); Alkaline Phosphatase 88 U/L (38-126); Anion Gap 9 mmol/L; Blood Urea Nitrogen 17 mg/dL (7-17); Calcium 8.7 mg/dL (8.4-10.2); Carbon Dioxide 24 mmol/L (22-30); Chloride 104 mmol/L (98-107); Glucose 121 mg/dL (74-99); Non-African American GFR(CKD) 79 (>60 ml/min/1.73 sqM); Potassium 3.6 mmol/L (3.5-5.1); Sodium 137 mmol/L (137-145); Total Bilirubin 0.5 mg/dL (0.2-1.3); Total Protein 6.3 g/dL (6.3-8.2)
--- NOTE | 2021-12-06 00:30 | XR ---
EXAMINATION TYPE: XR chest 1V portable DATE OF EXAM: 12/06/2021 COMPARISON: 06/27/2021 HISTORY: Syncope TECHNIQUE: Single view FINDINGS: Heart and mediastinum are normal. Lungs are clear of infiltrate. There is no heart failure. There are no hilar masses. IMPRESSION: No active cardiopulmonary disease. No change.
[2021-12-06 00:50] LABS: Appearance,Urine Cloudy (Clear); Bacteria,Urine Rare /hpf; Bilirubin,Urine Negative (Negative); Blood,Urine Small (Negative); Color,Urine Yellow; Glucose,Urine (UA) Negative (Negative); Hyaline Casts,Urine 52 /lpf (0-2); Ketones,Urine Negative (Negative); Leukocyte Esterase,Urine Trace (Negative); Mucus,Urine Many /hpf; Nitrite,Urine Negative (Negative); PH, Urine 5.5 (5.0-8.0); Protein,Urine 1+ (Negative); RBC,Urine 3 /hpf (0-5); Specific Gravity,Urine 1.023 (1.001-1.035); Squamous Epithelial Cell,Urine 7 /hpf (0-4); WBC,Urine 8 /hpf (0-5)
[2021-12-06 01:00] LABS: Basophils # (A) 0.1 k/uL (0-0.2); Basophils % (A) 1 %; Eosinophils # (A) 0.3 k/uL (0-0.7); Eosinophils % (A) 2 %; HCT 43.8 % (34.0-46.0); HGB 14.2 gm/dL (11.4-16.0); Lymphocytes # (A) 4.3 k/uL (1.0-4.8); Lymphocytes % (A) 28 %; MCH 32.1 pg (25.0-35.0); MCHC 32.4 g/dL (31.0-37.0); MCV 99.3 fL (80.0-100.0); Mean Platelet Volume 7.6; Monocytes # (A) 0.5 k/uL (0-1.0); Monocytes % (A) 3 %; Neutrophils # (A) 9.9 k/uL (1.3-7.7); Neutrophils % (A) 65 %; Platelet Count 298 k/uL (150-450); RBC 4.41 m/uL (3.80-5.40); RDW 13.4 % (11.5-15.5); WBC 15.1 k/uL (3.8-10.6)
[2021-12-06 03:12] VITALS: BP 107/68; PULSE 75; RESP 16
== END 2021-12-06 04:02 | disposition home or self-care (01) ==
LOC: EC 23:06
DX: R55 Syncope and collapse (principal); R42 Dizziness and giddiness; F17.200 Nicotine dependence, unspecified, uncomplicated; J44.9 Chronic obstructive pulmonary disease, unspecified; Z91.040 Latex allergy status; Z88.2 Allergy status to sulfonamides; Z79.82 Long term (current) use of aspirin
CPT/HCPCS: 36415; 71045; 80053; 81001; 84484; 85025; 85610; 85730; 93005; 99284

== ENCOUNTER → 2022-08-15 | Outpatient (CLI) | payer MEDICARE ==
--- NOTE | 2022-08-16 19:11 | MM ---
Reason for Exam: Screening (asymptomatic). Last screening mammogram was performed 12 month(s) ago. Patient History: Menarche at age 11. First Full-Term at age 23. Hysterectomy at age 36. Postmenopausal. Risk Values: Laura 5 year model risk: 1.6%. NCI Lifetime model risk: 5.9%. Prior Study Comparison: 05/24/2003 Bilateral Screening Mammogram, [facility]. 04/07/2019 Bilateral Screening Mammogram, [facility]. 08/14/2021 Bilateral Screening Mammogram, [facility]. Tissue Density: The breast tissue is heterogeneously dense. This may lower the sensitivity of mammography. Findings: Analyzed By CAD. There is no suspicious group of microcalcifications or new suspicious mass in either breast. Overall Assessment: Negative, BI-RAD 1 Management: Screening Mammogram of both breasts in 1 year. A clinical breast exam by your physician is recommended on an annual basis and results should be correlated with mammographic findings. Electronically signed and approved by: Fortunato Iqbal DO
== END | disposition home or self-care (01) ==
LOC: RADMAMWWP 11:16
PROVIDERS: ATTEND Family Medicine
DX: Z12.31 Encounter for screening mammogram for malignant neoplasm of breast (principal); Z78.0 Asymptomatic menopausal state
CPT/HCPCS: 77063; 77067

== ENCOUNTER → 2022-08-19 | Outpatient (CLI) | payer MEDICARE ==
--- NOTE | 2022-08-19 15:24 | FL ---
EXAMINATION TYPE: FL barium swallow DATE OF EXAM: 08/19/2022 CLINICAL INDICATION: 67-year-old female R1 3.10, dysphagia, history of previous hiatal hernia repair and stretching of previously junction narrowing. Tightening in pain along the upper chest. COMPARISON: 05/23/2020 Total Flouroscopy Time: 2 minutes 32 seconds 61 images obtained. FINDINGS: Intermittent penetration is demonstrated during swallows. A couple episodes of yovani aspiration are i dentified. Otherwise, hypopharyngeal anatomy is maintained. There is normal course and caliber of the thoracic esophagus. Mild tertiary peristaltic contractions are noted. No hiatal hernia is identified. No fixed narrowing, suspicious filling defect, or mucosal lesion is s een. After seeing a larger episode of aspiration, the stop the exam. Prone imaging was not performed. The patient does experience coughing after the aspiration. IMPRESSION: 1. Intermittent episodes of penetration and a couple episodes of yovani aspiration seen. [facility] referral for further assessment. 2. Mild age-related esophageal dysmotility. No stricture, mucosal lesion, or other abnormality is see n.
== END | disposition home or self-care (01) ==
LOC: RADUSWWP 10:50
PROVIDERS: ATTEND Surgery
DX: R13.10 Dysphagia, unspecified (principal)
CPT/HCPCS: 74220

== ENCOUNTER 2022-10-15 17:29 | Emergency (ER) | payer MEDICARE ==
[2022-10-15 17:41] VITALS: BP 138/72; PULSE 71; RESP 20; TEMP 98.8
[2022-10-15] MEDS ORDERED: AMOXIC-POT CLAV 875-125MG 1 EACH TAB PO STA (18:44)
--- NOTE | 2022-10-15 19:42 | ED ---
General Adult HPI - General Chief complaint: Recheck/Abnormal Lab/Rx Stated complaint: Dental/L eye issues Time Seen by Provider: 10/15/22 17:57 Source: patient Mode of arrival: ambulatory Limitations: no limitations - History of Present Illness Initial comments: Patient began develops and some swelling on the left side of the face while eating. She has no trouble opening her mouth. She has no trouble swallowing. She has no neck pain or stiffness. He has no fevers. She has no headache. She has no change in vision or hearing. She has no facial droop. She has no weakness. She has no paresthesias. She took no medicine to help with the symptoms. - Related Data Home Medications Medication Instructions Recorded Confirmed Aspirin [Adult Low Dose Aspirin EC] 162 mg PO DAILY 03/29/19 06/27/21 Multivit-Min/Iron/Folic/Lutein 1 tab PO WE 05/02/20 06/27/21 [Centrum Silver Women Tablet] Cholecalciferol [Vitamin D3 (25 50 mcg PO DAILY 06/27/21 06/27/21 Mcg = 1000 Iu)] Previous Rx's Medication Instructions Recorded Atorvastatin [Lipitor] 40 mg PO HS #30 tab 06/28/21 Amoxic-Pot Clav 875-125Mg 1 each PO Q12HR #20 tablet 10/15/22 [Augmentin Xr 875-125] Allergies Allergy/AdvReac Type Severity Reaction Status Date / Time latex Allergy Rash/Hives Verified 10/15/22 17:40 sulfamethoxazole Allergy Rash/Hives Verified 10/15/22 17:40 [From Bactrim] Review of Systems ROS Statement: Those systems with pertinent positive or pertinent negative responses have been documented in the HPI. ROS Other: All systems not noted in ROS Statement are negative. 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 History of Any Multi-Drug Resistant Organisms: None Reported Past Surgical History: Appendectomy, Bladder Surgery, Section, Cholecystectomy, Hysterectomy, Uterine Ablation Additional Past Surgical History / Comment(s): shaheed 06-16-19, COLONOSCOPY POLYPECTOMY, EGD, RT WRIST GANGLION CYST REMOVED., PARTIAL HYSTERECTOMY (HAS OVARIES). Past Anesthesia/Blood Transfusion Reactions: No Reported Reaction, Family History of Problems w/ Anesthesia Additional Past Anesthesia/Blood Transfusion Reaction / Comment(s): mother had problems coming out of anesthesia. no problems with prior blood transfusions Past Psychological History: Anxiety, Depression Smoking Status: Current every day smoker Past Alcohol Use History: Rare Past Drug Use History: Marijuana - Past Family History Father Family Medical History: Cancer, CVA/TIA, Osteoarthritis (OA) Additional Family Medical History / Comment(s): LUNG CA AND CIRRHOSIS. Mother Family Medical History: COPD, Osteoarthritis (OA) Additional Family Medical History / Comment(s): GLAUCOMA General Exam Limitations: no limitations General appearance: alert, in no apparent distress Head exam: Present: atraumatic, normocephalic, normal inspection Eye exam: Present: normal appearance, PERRL, EOMI. Absent: scleral icterus, conjunctival injection, periorbital swelling ENT exam: Present: normal exam, mucous membranes moist Neck exam: Present: normal inspection. Absent: tenderness, meningismus, lymphadenopathy Respiratory exam: Present: normal lung sounds bilaterally. Absent: respiratory distress, wheezes, rales, rhonchi, stridor Cardiovascular Exam: Present: regular rate, normal rhythm, normal heart sounds. Absent: systolic murmur, diastolic murmur, rubs, gallop, clicks GI/Abdominal exam: Present: soft, normal bowel sounds. Absent: distended, tenderness, guarding, rebound, rigid Extremities exam: Present: normal inspection, full ROM, normal capillary refill. Absent: tenderness, pedal edema, joint swelling, calf tenderness Back exam: Present: normal inspection Neurological exam: Present: alert, oriented X3, CN II-XII intact Psychiatric exam: Present: normal affect, normal mood Skin exam: Present: warm, dry, intact, normal color. Absent: rash Course Vital Signs 10/15/22 17:38 Temperature 98.8 F Pulse Rate 71 Respiratory 20 Rate Blood Pressure 138/72 O2 Sat by Pulse 99 Oximetry Medical Decision Making - Medical Decision Making Patient presents with left-sided face swelling. Based on my examination and the patient's description it appears that she has sialoadenitis. I have given her anticipatory guidance and started her on antibiotic. Disposition Clinical Impression: Sialadenitis Disposition: HOME SELF-CARE Condition: Good Instructions (If sedation given, give patient instructions): Sialoadenitis (ED) Prescriptions: Amoxic-Pot Clav 875-125Mg [Augmentin Xr 875-125] 1 each PO Q12HR #20 tablet Is patient prescribed a controlled substance at d/c from ED?: No Referrals: Emmie Thakur MD [Primary Care Provider] - 1-2 days
== END 2022-10-15 19:47 | disposition home or self-care (01) ==
LOC: EC 17:29
DX: K11.20 Sialoadenitis, unspecified (principal); J44.9 Chronic obstructive pulmonary disease, unspecified; K21.9 Gastro-esophageal reflux disease without esophagitis; E78.5 Hyperlipidemia, unspecified; M19.90 Unspecified osteoarthritis, unspecified site; F32.A Depression, unspecified; F41.9 Anxiety disorder, unspecified; F17.200 Nicotine dependence, unspecified, uncomplicated; Z79.82 Long term (current) use of aspirin; Z79.02 Long term (current) use of antithrombotics/antiplatelets; Z91.040 Latex allergy status; Z88.2 Allergy status to sulfonamides; Z79.899 Other long term (current) drug therapy
CPT/HCPCS: 99283

== ENCOUNTER → 2023-03-19 | Outpatient (CLI) | payer MEDICARE ==
--- NOTE | 2023-03-19 15:03 | CTL ---
EXAMINATION TYPE: CT Low Dose Lung DATE OF EXAM ORDERED: 03/19/2023 HISTORY: Z87.891. Lung cancer screening CT DLP: [address] CTDI: 1.87 mGy Automated exposure control for dose reduction was used. SCREENING VISIT: First screening visit COMPARISON: Chest radiograph 12/05/2021 CTA thoracoabdominal pelvis 12/02/2017 TECHNIQUE: Low dose computed tomography scan was performed through the chest at 1 mm thick sections a nd reconstructed images in multiple planes at 1 mm and [address] DIAGNOSTIC QUALITY: Satisfactory FINDINGS: LUNG NODULES: Right lower lobe pleural-based 5 mm pulmonary nodule (series 4, image 258). Right lower lobe 5 mm nodular density (series 4, image 210). Calcified nodule versus calcified granuloma in the lateral right upper lobe (series 4, image 94). These are all stable dating back to 2018 exam. No new or enlarging pulmonary nodules. LUNGS: COPD: Severity: Mild Fibrosis: Severity: None Lymph nodes: None Other findings: Biapical pleural-parenchymal scarring. RIGHT PLEURAL SPACE: Effusion: None Calcification: None Thickening: None Pneumothorax: None LEFT PLEURAL SPACE: Effusion: None Calcification: None Thickening: None Pneumothorax: None HEART: Heart Size: Normal Coronary Calcification: Small Pericardial Effusion: None OTHER FINDINGS: Upper abdomen: Post surgical changes the GE junction. Bony thorax: None Supraclavicular region: None Other: Atherosclerotic calcification of the aorta and its branches. Stable ascending thoracic ectasia measuring up to 3.9 cm. IMPRESSION: 1. Few pulmonary nodules measuring up to 5 mm which are stable dating back to 2018 and considered twin ign. No new or enlarging pulmonary nodules. 2. Mild COPD changes. 3. Stable ectasia of the ascending thoracic aorta measuring up to 3.[address] LUNG RAD AND CT CHEST RECOMMENDATION: Lung-Rad 2 Benign Appearance or Behavior: Continue annual sc reening with LDCT in 12 months. S Modifier (other clinically significant findings): None
== END | disposition home or self-care (01) ==
LOC: RADCTMAIN 13:40
PROVIDERS: ATTEND Family Medicine
DX: Z12.2 Encounter for screening for malignant neoplasm of respiratory organs (principal); F17.210 Nicotine dependence, cigarettes, uncomplicated; J44.9 Chronic obstructive pulmonary disease, unspecified; R91.8 Other nonspecific abnormal finding of lung field; I77.810 Thoracic aortic ectasia
CPT/HCPCS: 71271

== ENCOUNTER → 2023-07-15 | Outpatient (CLI) | payer MEDICARE ==
--- NOTE | 2023-07-15 15:46 | XR ---
EXAMINATION TYPE: XR ribs RT w pa chest xray DATE OF EXAM: 07/15/2023 3:31 PM INDICATION: Patient age:Female; 67 years old; Reason for study: R07.81; [facility]. COMPARISON: Chest radiograph 12/06/2019 TECHNIQUE: Frontal and oblique views of the right ribs. FINDINGS: The ribs have a normal appearance. No evidence of fracture. No pleural effusion, focal con solidation. Right apical pleural thickening. Hyperinflation. The cardiac silhouette is normal in size . The remaining osseous structures are intact. IMPRESSION: 1. No acute osseous pathology. 2. COPD changes.
== END | disposition home or self-care (01) ==
LOC: RADXRMAIN 15:15
PROVIDERS: ATTEND Family Medicine
DX: J44.9 Chronic obstructive pulmonary disease, unspecified (principal); R07.81 Pleurodynia

== ENCOUNTER → 2024-03-09 | Outpatient (CLI) | payer MEDICARE ==
--- NOTE | 2024-03-09 12:49 | BD ---
EXAMINATION TYPE: Axial Bone Density DATE OF EXAM: 03/09/2024 CLINICAL HISTORY: 68 years old Female. ICD-10 CODE: Z78.0 MENOPAUSAL STATE, OSTEOPOROSIS Height: 66.25 Weight: 159.7 FRAX RISK QUESTIONS: Alcohol (3 or more units per day): no Family History (Parent hip fracture): no Glucocorticoids (More than 3mos): no History of Fracture in Adulthood: clavicle, ribs, shoulder, ankle, Secondary Osteoporosis: 1. Type 1 Diabetes: no 2. Hyperthyroidism: no 3. Menopause before 45: yes 4. Malnutrition: no 5. Chronic liver disease: no Rheumatoid Arthritis: no Current Tobacco Use: yes RISK FACTORS HISTORY OF: Hip Fracture (Right/Left): no Spine Fracture: no History of Wrist Fracture: no Surgery to Spine/Hip(right/left)/Wrist (right/left): no MEDICATIONS: Thyroid Medications: no Osteoporosis Medications: no EXAM MEASUREMENTS: Bone mineral densitometry was performed using the [employer] System. Bone mineral density as measured about the Lumbar spine is: ----- L1-L4(G/cm2): 0.898 T Score Values are as follows: ----- L1: -2.4 ----- L2: -2.7 ----- L3: -2.5 ----- L4: -1.9 ----- L1-L4: -2.3 Z Score Values are as follows: ----- L1: -1.0 ----- L2: -1.3 ----- L3: -1.1 ----- L4: -0.6 ----- L1-L4: -1.0 Baseline Study Bone mineral density about the R hip (g/cm2): 0.715 Bone mineral density about the L hip (g/cm2): 0.691 T Score values are as follows: -----R Neck: -2.3 -----L Neck: -2.3 -----R Total: -2.3 -----L Total: -2.5 Z Score values are as follows: -----R Neck: -0.8 -----L Neck: -0.9 -----R Total: -1.1 -----L Total: -1.3 Baseline Study FRAX%s: The graph provided illustrates a 22.8% chance for a major osteoporotic fx and a 7.7% chance f or the hips probability for fx in 10 years time. IMPRESSION: Osteopenia (T Score between -2.5 and -1). There is slightly increased risk of fracture and the patient may be considered for treatment. Re-Screen 2-5 years. NOTE: T-SCORE=SD OF THE YOUNG ADULT MEAN.
--- NOTE | 2024-03-09 18:56 | US ---
EXAMINATION TYPE: US arterial LE single level DATE OF EXAM: 03/09/2024 8:02 AM CLINICAL INDICATION: Female, 68 years old with history of I73.9 PAD; Patient states having an at home test that showed hard to get pulse. Current smoker. History of: Smoker: Current Smoker Hypertension: Yes Diabetic: No Hyperlipidemia: No TIA/CVA: No Previous Vascular Surgery: No CAD: Yes AR: No Vascular Ulcers: No Claudication: No Gangrene: No Doppler Waveforms: Right: Biphasic Left: Biphasic Right Brachial Pressure: 108 Left Brachial Pressure: 103 Ankle-Brachial Indices: Right: 1.0 Left: 1.1 (Vessel hardening > 1.4; Normal 0.9 - 1.4, Moderate 0.7 - 0.9, Severe 0.5-0.7) IMPRESSION: Ankle-brachial indices within normal limits bilaterally.
--- NOTE | 2024-03-10 14:13 | MM ---
Reason for Exam: Screening (asymptomatic). Last mammogram was performed 1 year(s) and 7 month(s) ago. Patient History: Menarche at age 11. First Full-Term at age 23. Hysterectomy at age 36. Postmenopausal. Risk Values: Laura 5 year model risk: 1.7%. NCI Lifetime model risk: 5.5%. Prior Study Comparison: 04/07/2019 Bilateral Screening Mammogram, [facility]. 08/14/2021 Bilateral Screening Mammogram, [facility]. 08/15/2022 Bilateral MG 3D screening mammo w/cad, [facility]. Tissue Density: The breasts are heterogeneously dense, which may obscure small masses. Findings: Analyzed By CAD. The microcalcifications upper outer right breast persist and may have increased slightly in size. Spot magnification compression is recommended. No microvascular calcifications left breast. No masses seen. Overall Assessment: Incomplete: need additional imaging evaluation, BI-RAD 0 Management: Diagnostic Mammogram of the right breast. . Patient should continue monthly self-breast exams. A clinical breast exam by your physician is recommended on an annual basis. This exam should not preclude additional follow-up of suspicious palpable abnormalities. Note on Laura scores and lifetime risk: 1. A Laura score greater than 3% is considered moderate risk. If this is the case, consider specialist referral to assess eligibility for a risk reducing agent. 2. If overall lifetime risk for the development of breast cancer is 20% or higher, the patient may qualify for future screening with alternating mammogram and breast MRI. Electronically signed and approved by: Lucio Perkins M.D. Radiologis
== END | disposition home or self-care (01) ==
LOC: RADBDWWP 06:59
PROVIDERS: ATTEND Family Medicine
DX: Z12.31 Encounter for screening mammogram for malignant neoplasm of breast (principal); Z13.820 Encounter for screening for osteoporosis; I73.9 Peripheral vascular disease, unspecified; I10 Essential (primary) hypertension; I25.10 Atherosclerotic heart disease of native coronary artery without angina pectoris; M81.0 Age-related osteoporosis without current pathological fracture; M85.89 Other specified disorders of bone density and structure, multiple sites; F17.200 Nicotine dependence, unspecified, uncomplicated; Z78.0 Asymptomatic menopausal state
CPT/HCPCS: 77063; 77067; 77080; 93922

== ENCOUNTER → 2024-03-15 | Outpatient (CLI) | payer MEDICARE ==
--- NOTE | 2024-03-15 14:04 | MM ---
Reason for Exam: Additional evaluation requested from abnormal screening. Last screening mammogram was performed less than 1 month ago. Patient History: Menarche at age 11. First Full-Term at age 23. Hysterectomy at age 36. Postmenopausal. Risk Values: Laura 5 year model risk: 1.7%. NCI Lifetime model risk: 5.5%. Prior Study Comparison: 05/24/2003 Bilateral Screening Mammogram, [facility]. 04/07/2019 Bilateral Screening Mammogram, [facility]. 08/15/2022 Bilateral MG 3D screening mammo w/cad, [facility]. 03/09/2024 Bilateral MG 3D screening mammo w/cad, [facility]. Tissue Density: Right: The breasts are heterogeneously dense, which may obscure small masses. Findings: Analyzed By CAD. Pattern is stable. There are grouped punctate calcifications at the 9:00 middle position right breast. These appear to be increasing 2018 and 2021. Stereotactic core biopsy is recommended. Overall Assessment: Suspicious, BI-RAD 4 Management: Stereotactic Core Biopsy of the right breast. A negative mammogram report should not preclude additional follow up of suspicious palpable abnormalities. Patient should continue monthly self breast exam. A clinical breast exam by your physician is recommended on an annual basis and results should be correlated with mammographic findings. Electronically signed and approved by: Butch Staley D.O. Radiologis
== END | disposition home or self-care (01) ==
LOC: RADMAMWWP 13:29
PROVIDERS: ATTEND Family Medicine
DX: R92.331 Mammographic heterogeneous density, right breast (principal); Z78.0 Asymptomatic menopausal state
CPT/HCPCS: 77061; 77065

== ENCOUNTER → 2024-03-22 | Outpatient (CLI) | payer MEDICARE ==
--- NOTE | 2024-03-22 19:40 | CTL ---
EXAMINATION TYPE: CT Low Dose Lung DATE OF EXAM ORDERED: 03/22/2024 HISTORY: Lung cancer screening CT DLP: [address] CTDI: 2.4 mGy Automated exposure control for dose reduction was used. COMPARISON: 03/19/2023 TECHNIQUE: Low dose computed tomography scan was performed through the chest at 1 mm thick sections a nd reconstructed images in multiple planes at 1 mm and [address] DIAGNOSTIC QUALITY: Satisfactory FINDINGS: There are moderate emphysematous changes within upper lobe predominance. There is prominent stable pl eural-parenchymal scarring in the right lung apex. There are some scattered stable micronodules. There is a stable 7.7 mm nodule in the right lower lobe posteriorly. There is no abnormal airspace/consolidative density or abnormal interstitial density. There is mild stable prominence of the ascending thoracic aorta which measures 3.9 cm.. There is no m ediastinal, hilar or axillary adenopathy. Limited scanning through the upper abdomen reveals no gross abnormality. No focal osseous lesions are seen. IMPRESSION: 1. Lung RADS category 2. Stable 7.7 mm nodule in the right lower lobe and multiple stable micronodule s. 2. Moderate emphysematous changes. 3. No acute cardiopulmonary disease.
== END | disposition home or self-care (01) ==
LOC: RADCTMAIN 15:51
PROVIDERS: ATTEND Family Medicine
DX: Z12.2 Encounter for screening for malignant neoplasm of respiratory organs (principal); J43.9 Emphysema, unspecified; I77.810 Thoracic aortic ectasia; R91.1 Solitary pulmonary nodule; R91.8 Other nonspecific abnormal finding of lung field; F17.210 Nicotine dependence, cigarettes, uncomplicated
CPT/HCPCS: 71271

== ENCOUNTER → 2024-03-25 | Day surgery (SDC) | payer MEDICARE ==
[~2024-03-25] MED LIST changes: +ALPRAZolam 0.25 MG TAB PO PRN; +ALPRAZolam 0.5 MG TAB PO PRN; -HYDROmorphone 0.5 MG/0.5 ML SYRINGE IVP PRN; -ONDANSETRON 4 MG/2 ML VIAL IVP ONE; -fentaNYL (PF) 50 MCG/ML 2 ML AMP IV PRN
--- NOTE | 2024-03-31 11:23 | MM ---
Risk Values: Laura 5 year model risk: 1.7%. NCI Lifetime model risk: 5.5%. Prior Study Comparison: 08/15/2022 Bilateral MG 3D screening mammo w/cad, [facility]. 03/09/2024 Bilateral MG 3D screening mammo w/cad, [facility]. 03/15/2024 Right MG 3D work up w/cad RT, [facility]. Pathology Description: Marker Left Behind. Specimen Radiograph. Approach: Lateral to Medial Needle Type: Eviva Cores: 7 Skin Nicks: 1 Gauge: 9 The microcalcifications in question within the right breast were targeted by the undersigned. Procedure was performed by the undersigned. Informed consent was obtained and all of the patients questions were answered. The standard sterile technique was utilized and appropriate local anesthesia was obtained with 1% licocaine. Mammotome probe was advanced and multiple core samples were obtained and sent to pathology for interpretation. Microclip marker was deployed at the site of biopsy. Post procedural mammogram demonstrates appropriate deployment of radiopaque clip marker. The patient tolerated the procedure well and left the department in stable condition. Pathology results are pending. Impression: Successful stereotactic core biopsy right breast. Pathology Results: Result: High risk, Atypical lobular hyperplasia. Pathology and radiology were reviewed. Findings are concordant. RIGHT BREAST, NEEDLE CORE BIOPSY: Focal atypical lobular hyperplasia (ALH) and fibrocystic changes including cysts with apocrine metaplasia. Negative for invasive malignancy. Intraluminal calcifications are identified. Overall Assessment: High risk Management: Surgical Consultation of the right breast. Electronically signed and approved by: Lucio Perkins M.D. Radiologis
== END ==
LOC: RADMAMWWP 10:00
PROVIDERS: ATTEND Family Medicine
DX: N60.81 Other benign mammary dysplasias of right breast (principal)
CPT/HCPCS: 88305; 19081; A4648

== ENCOUNTER → 2024-04-07 | Outpatient (CLI) | payer MEDICARE ==
[2024-04-07 12:55] LABS: African American GFR (CKD) >90 (>60 ml/min/1.73 sqM); Blood Urea Nitrogen 13 mg/dL (7-17); Non-African American GFR(CKD) 79 (>60 ml/min/1.73 sqM)
--- NOTE | 2024-04-13 20:57 | CT ---
EXAMINATION TYPE: CT abdomen pelvis w con CT DLP: 1288 mGycm, Automated exposure control for dose reduction was used. DATE OF EXAM: 04/07/2024 1:53 PM COMPARISON: CT abdomen pelvis most recent from 12/02/2017 CLINICAL INDICATION:Female, 68 years old with history of R82.90 UNSPECIFIED ABNORMAL FINDINGS IN URIN E; hematuria TECHNIQUE: Axial CT abdomen pelvis w con;Sagittal and coronal reformats were created on a separate w orkstation. Contrast used:100 mL of Isovue 300 with IV Contrast, (none if empty) Oral contrast used: with Oral Contrast (none if empty) FINDINGS: LOWER CHEST: Unremarkable ABDOMEN LIVER: Unremarkable GALLBLADDER AND BILE DUCTS: Unremarkable. PANCREAS: Unremarkable. SPLEEN: Unremarkable. ADRENAL GLANDS: Unremarkable. KIDNEYS AND URETERS: No evidence of hydronephrosis or renal calculus. The ureters are unremarkable. PELVIS BLADDER: Unremarkable REPRODUCTIVE: Unremarkable. ABDOMEN & PELVIS STOMACH AND BOWEL: Fundoplication. Stomach and duodenum are otherwise unremarkable. No evidence of bowel obstruction. PERITONEUM/RETROPERITONEUM: No evidence of pneumoperitoneum or free fluid. VASCULATURE: No evidence of aortic aneurysm. MUSCULOSKELETAL: No acute osseous abnormalities LYMPH NODES: No gross evidence for lymphadenopathy. SOFT TISSUE/ABDOMINAL WALL: Unremarkable IMPRESSION: 1. No renal mass. No urolithiasis. 2. Explanation for patient's symptoms is not appreciated.
== END | disposition home or self-care (01) ==
LOC: RADCTMAIN 11:14
PROVIDERS: ATTEND Family Medicine
DX: R31.29 Other microscopic hematuria (principal); R82.90 Unspecified abnormal findings in urine; Z72.0 Tobacco use
CPT/HCPCS: 82565; 84520; 74177; 36415; Q9967

== ENCOUNTER 2024-04-13 10:02 | Day surgery (SDC) | payer MEDICARE ==
[2024-04-06 12:10] VITALS: BMI 26.7
[~2024-04-13 10:02] MED LIST changes: -ALPRAZolam 0.25 MG TAB PO PRN; -ALPRAZolam 0.5 MG TAB PO PRN; +LIDOCAINE 1% (10MG/ML) FOR IV START INTRADERMA PRN
[2024-04-13] MEDS: LACTATED RINGERS 1,000 ML IV SCH (10:18)
[2024-04-13 11:15] VITALS: RESP 16; TEMP 97
[2024-04-13] MEDS ORDERED: PROPOFOL 10 MG/ML 20 ML VIAL IV ONE (11:52)
--- NOTE | 2024-04-13 12:08 | P.PCN ---
Date of Procedure: 04/13/24 Procedure(s) Performed: BRIEF HISTORY: Patient is a 68-year-old pleasant white female scheduled for an elective colonoscopy as a part of screening for colon cancer. PROCEDURE PERFORMED: Colonoscopy. PREOPERATIVE DIAGNOSIS: Screening for colon cancer. IV sedation per Anesthesia. PROCEDURE: After informed consent was obtained, the patient, was brought into the endoscopy unit. IV sedation was administered by Anesthesia under continuous monitoring. Digital rectal examination was normal. Initially the Olympus CF-160 flexible video colonoscope was then inserted in the rectum, gradually advanced into the cecum without any difficulty. Careful examination was performed as the scope was gradually being withdrawn. Ileocecal valve and the appendiceal orifice were visualized and appeared normal. Prep was excellent. Mucosa of the cecum, ascending colon, transverse colon, descending colon, sigmoid colon, and rectum appeared normal. Retroflexion was performed in the rectum and no lesions were seen. The patient tolerated the procedure well. IMPRESSION: Normal-appearing colon from rectum to cecum with no evidence of colorectal neoplasia. RECOMMENDATIONS: Findings of this examination were discussed with the patient as well as her family. She was advised to have a repeat screening colonoscopy in 10 years..
[2024-04-13 13:04] VITALS: BP 146/79; PULSE 62
== END 2024-04-13 12:53 | disposition home or self-care (01) ==
LOC: ORWHC2ENDO 10:02
PROVIDERS: ATTEND Internal Medicine Gastroenterology
DX: Z12.11 Encounter for screening for malignant neoplasm of colon (principal); E78.5 Hyperlipidemia, unspecified; J44.9 Chronic obstructive pulmonary disease, unspecified; F17.210 Nicotine dependence, cigarettes, uncomplicated; Z86.010 Personal history of colon polyps; K21.9 Gastro-esophageal reflux disease without esophagitis; Z79.899 Other long term (current) drug therapy; Z88.2 Allergy status to sulfonamides; Z91.040 Latex allergy status
CPT/HCPCS: 45378; J2704

== ENCOUNTER → 2024-04-16 | Outpatient (CLI) | payer MEDICARE ==
--- NOTE | 2024-04-16 14:19 | P.GSCN ---
History of Present Illness Consult date: 04/16/24 Reason for Consult: atypical lobular hyperplasia right breast Requesting physician: Emmie Thakur History of present illness: Avni is a 68 year old female seen in consultation for DR. Thakur regarding a biopsy of the right breast revealing atypical lobular hyperplasia. She had a bilateral mammogram on 03-09-24 which led to a right breast diagnostic mammogram and a right breast stero biopsy on 03-25-24. The stero biopsy showed atypical lobular hyperplasia. The patient did not feel anything in her breast. This was found on a routine mammogram. The patient states that the biopsy was painful although she tolerated without difficulty. She has not had any recent trauma or infection in her breast. She has never had any surgery on her breast. Caffeine: 1 cup/day nicotine: 1 PPD/ for 50 years chocolate: occasional BCP: 6 months hormones: none Family History: father: lung cancer/ smoker Hormonal History: menarche: 11 , breast fed: no, age at first : 23 menopause: partial hysterectomy at 36 Surgical History: hysterectomy left both ovaries gallbladder 2 c-sections pneumothorax/chest tube ganglion cyst stomach GERD bladder lift Medical History: none Social History: nicotine: 1 PPD alcohol: none drugs: Marijuana Gummies Review of Systems - Constitutional Reports sweats - EENT Eyes: denies blurred vision Ears: left: decreased hearing, tinnitus Ears, nose, mouth and throat: Denies dysphagia - Breasts bilateral: as per HPI - Cardiovascular Reports shortness of breath, Denies chest pain - Respiratory Reports cough - Gastrointestinal Reports as per HPI - Genitourinary Genitourinary: Reports hematuria, Denies dysuria Menstruation: Reports post hysterectomy - Musculoskeletal Reports myalgias - Integumentary Reports pruritus - Neurological Denies headaches, Denies syncope - Psychiatric Reports as per HPI - Endocrine Reports as per HPI, Reports weight change - Hematologic/Lymphatic Denies easy bleeding, Denies easy bruising - Allergic/Immunologic Reports seasonal allergies Past Medical History Past Medical History: COPD, GERD/Reflux, Hyperlipidemia, Osteoarthritis (OA) Additional Past Medical History / Comment(s): PRE CA UTERINE, CHEST TUBE X1 SPONTANEOUS PNEUMOTHORAX X2, HX ENVIRONMENTAL ALLERGIES., 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 History of Any Multi-Drug Resistant Organisms: None Reported Past Surgical History: Appendectomy, Bladder Surgery, Section, Cholecystectomy, Hysterectomy, Uterine Ablation Additional Past Surgical History / Comment(s): shaheed 06-16-19, COLONOSCOPY POLYPECTOMY, EGD, RT WRIST GANGLION CYST REMOVED., PARTIAL HYSTERECTOMY (HAS OVARIES). Past Anesthesia/Blood Transfusion Reactions: No Reported Reaction, Family History of Problems w/ Anesthesia Additional Past Anesthesia/Blood Transfusion Reaction / Comm: mother had problems coming out of anesthesia. no problems with prior blood transfusions. no blood transfusion reaction Past Psychological History: No Psychological Hx Reported Additional Psychological History / Comment(s): History of homelessness, currently lives with her mother. NO recent problems with anxiety or depression Smoking Status: Current every day smoker Past Alcohol Use History: Rare Additional Past Alcohol Use History / Comment(s): SMOKING SINCE 18 YEARS OLD,2 ppd Past Drug Use History: Marijuana Additional Drug Use History / Comment(s): EDIBLE, knows to not have any 24 hours prior to procedure - Past Family History Father Family Medical History: Cancer, CVA/TIA, Osteoarthritis (OA) Additional Family Medical History / Comment(s): LUNG CA AND CIRRHOSIS. Mother Family Medical History: COPD, Osteoarthritis (OA) Additional Family Medical History / Comment(s): GLAUCOMA Medications and Allergies Home Medications Medication Instructions Recorded Confirmed Type Aspirin [Adult Low Dose Aspirin EC] 81 mg PO DAILY 03/29/19 04/16/24 History Multivit-Min/Iron/Folic/Lutein 1 tab PO DIRECTED 05/02/20 04/16/24 History [Centrum Silver Women Tablet] Cholecalciferol [Vitamin D3 (25 50 mcg PO DAILY 06/27/21 04/16/24 History Mcg = 1000 Iu)] Atorvastatin [Lipitor] 40 mg PO HS #30 tab 06/28/21 04/16/24 Rx Allergies Allergy/AdvReac Type Severity Reaction Status Date / Time latex Allergy Rash/Hives Verified 04/16/24 13:45 sulfamethoxazole Allergy Rash/Hives Verified 04/16/24 13:45 [From Bactrim] Surgical - Exam Vital Signs Temp Pulse Resp BP Pulse Ox 98.1 F 78 17 97/52 99 04/16/24 13:46 04/16/24 13:46 04/16/24 13:46 04/16/24 13:46 04/16/24 13:46 - General no distress - Eyes normal ocular movement - Neck trachea midline - Respiratory normal respiratory effort, clear to auscultation - Cardiovascular Rhythm: regular Heart Sounds: normal: S1, S2 - Integumentary normal turgor - Neurologic no disoriented, no combative - Musculoskeletal normal gait - Psychiatric oriented to time, oriented to person, oriented to place, speech is normal, memory intact Breast Exam: BRA: 38C Inspection: Bilateral grade 3 ptosis Palpation: Right breast: Multi positional exam fibrocystic changes no dominant masses or nodules of concern Right axilla: No adenopathy of concern Left breast: Multi positional exam fibrocystic changes no dominant masses or n odules of concern Left axilla: No adenopathy of concern Biopsy site right breast no evidence of infection or hematoma Results Stereotactic specimen personally reviewed Assessment and Plan Assessment: Impression: Abnormal right breast mammogram Status post stereotactic core biopsy right breast/atypical lobular hyperplasia High risk for breast cancer We have discussed chemoprophylaxis Plan: Appointment medical oncology possible chemoprophylaxis We have discussed surgical resection but at this time the patient would prefer to be followed conservatively and we are now following some atypical lobular hyperplsias Repeat right breast mammogram in 6 months CC: Dr. Sheila Reed
[2024-04-16 14:22] VITALS: BP 97/52; PULSE 78; RESP 17; TEMP 98.1
== END ==
LOC: WWCWWP 12:56
PROVIDERS: ATTEND Surgery
DX: R92.8 Other abnormal and inconclusive findings on diagnostic imaging of breast (principal); N60.91 Unspecified benign mammary dysplasia of right breast; F17.210 Nicotine dependence, cigarettes, uncomplicated; Z88.2 Allergy status to sulfonamides; Z91.040 Latex allergy status

== ENCOUNTER → 2024-10-18 | Outpatient (CLI) | payer MEDICARE ==
--- NOTE | 2024-10-18 10:02 | MM ---
Reason for Exam: Follow-up at short interval from prior study. Last screening mammogram was performed 7 month(s) ago. Patient History: Menarche at age 11. First Full-Term at age 23. Hysterectomy at age 36. Postmenopausal. Previous Atypical Lobular Hyperplasia at age 68. 03/25/2024, High risk MG stereo VAD BX RT on the right side. Risk Values: Laura 5 year model risk: 3.9%. NCI Lifetime model risk: 11.6%. Prior Study Comparison: 08/15/2022 Bilateral MG 3D screening mammo w/cad, [facility]. 03/09/2024 Bilateral MG 3D screening mammo w/cad, [facility]. 03/15/2024 Right MG 3D work up w/cad RT, [facility]. Tissue Density: Right: There are scattered areas of fibroglandular density. Findings: Analyzed By CAD. Microclip marker From prior biopsy is unchanged in position. No masses. No suspicious calcifications. Overall Assessment: Benign, BI-RAD 2 Management: Screening Mammogram of both breasts in 6 months. . Results were given to the patient verbally at the time of exam. Patient should continue monthly self-breast exams. A clinical breast exam by your physician is recommended on an annual basis. This exam should not preclude additional follow-up of suspicious palpable abnormalities. Note on Laura scores and lifetime risk: 1. A Laura score greater than 3% is considered moderate risk. If this is the case, consider specialist referral to assess eligibility for a risk reducing agent. 2. If overall lifetime risk for the development of breast cancer is 20% or higher, the patient may qualify for future screening with alternating mammogram and breast MRI. [facility], , 10/18/2024 9:59 AM. Electronically signed and approved by: Lucio Perkins M.D. Radiologis
== END | disposition home or self-care (01) ==
LOC: RADMAMWWP 09:39
PROVIDERS: ATTEND Surgery
DX: R92.323 Mammographic fibroglandular density, bilateral breasts (principal); Z78.0 Asymptomatic menopausal state
CPT/HCPCS: 77061; 77065

== ENCOUNTER → 2024-10-21 | Outpatient (CLI) | payer MEDICARE ==
[2024-10-21 10:39] VITALS: BP 113/73; PULSE 59; RESP 17; TEMP 98.1
--- NOTE | 2024-10-21 10:47 | P.PN ---
Subjective Progress Note Date: 10/21/24 Principal diagnosis: Atypical lobular hyperplasia right breast History of Present Illness Consult date: 04/16/24 Reason for Consult: atypical lobular hyperplasia right breast Requesting physician: Emmie Thakur History of present illness: Avni is a 68 year old female seen in consultation for DR. Thakur on 04-16-24 regarding a biopsy of the right breast revealing atypical lobular hyperplasia. She had a bilateral mammogram on 03-09-24 which led to a right breast diagnostic mammogram and a right breast stero biopsy on 03-25-24. The stero biopsy showed atypical lobular hyperplasia. The patient did not feel anything in her breast. This was found on a routine mammogram. The patient states that the biopsy was painful although she tolerated without difficulty. She has not had any recent trauma or infection in her breast. She has never had any surgery on her breast. repeat right breast mammogrma personally reviewed and interpreted from 10-18-24 BIRAD 2. At this time she is not complaining of any new changes in her breast. note medical oncology reviewed 04-27-24 recommended raloxefene; she declined Caffeine: 1 cup/day nicotine: 1 1/2 -2 PPD/ for 51 years chocolate: occasional BCP: 6 months hormones: none Family History: father: lung cancer/ smoker Hormonal History: menarche: 11 , breast fed: no, age at first : 23 menopause: partial hysterectomy at 36 Surgical History: hysterectomy left both ovaries gallbladder 2 c-sections pneumothorax/chest tube ganglion cyst stomach GERD bladder lift Medical History: none Social History: nicotine: 1 PPD alcohol: none drugs: Marijuana Gummies Review of Systems - Constitutional Reports sweats - EENT Eyes: denies blurred vision Ears: left: decreased hearing, tinnitus Ears, nose, mouth and throat: Denies dysphagia - Breasts bilateral: as per HPI - Cardiovascular Reports shortness of breath, Denies chest pain - Respiratory Reports cough - Gastrointestinal Reports as per HPI - Genitourinary Genitourinary: Reports hematuria, Denies dysuria Menstruation: Reports post hysterectomy - Musculoskeletal Reports myalgias - Integumentary Reports pruritus - Neurological Denies headaches, Denies syncope - Psychiatric Reports as per HPI - Endocrine Reports as per HPI, Reports weight change - Hematologic/Lymphatic Denies easy bleeding, Denies easy bruising - Allergic/Immunologic Reports seasonal allergies Past Medical History Past Medical History: COPD, GERD/Reflux, Hyperlipidemia, Osteoarthritis (OA) Additional Past Medical History / Comment(s): PRE CA UTERINE, CHEST TUBE X1 SPONTANEOUS PNEUMOTHORAX X2, HX ENVIRONMENTAL ALLERGIES., 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 History of Any Multi-Drug Resistant Organisms: None Reported Past Surgical History: Appendectomy, Bladder Surgery, Section, Cholecystectomy, Hysterectomy, Uterine Ablation Additional Past Surgical History / Comment(s): shaheed 06-16-19, COLONOSCOPY POLYPECTOMY, EGD, RT WRIST GANGLION CYST REMOVED., PARTIAL HYSTERECTOMY (HAS OVARIES). Past Anesthesia/Blood Transfusion Reactions: No Reported Reaction, Family History of Problems w/ Anesthesia Additional Past Anesthesia/Blood Transfusion Reaction / Comm: mother had problems coming out of anesthesia. no problems with prior blood transfusions. no blood transfusion reaction Past Psychological History: No Psychological Hx Reported Additional Psychological History / Comment(s): History of homelessness, currently lives with her mother. NO recent problems with anxiety or depression Smoking Status: Current every day smoker Past Alcohol Use History: Rare Additional Past Alcohol Use History / Comment(s): SMOKING SINCE 18 YEARS OLD,2 ppd Past Drug Use History: Marijuana Additional Drug Use History / Comment(s): EDIBLE, knows to not have any 24 hours prior to procedure - Past Family History Father Family Medical History: Cancer, CVA/TIA, Osteoarthritis (OA) Additional Family Medical History / Comment(s): LUNG CA AND CIRRHOSIS. Mother Family Medical History: COPD, Osteoarthritis (OA) Additional Family Medical History / Comment(s): GLAUCOMA Medications and Allergies Home Medications Medication Instructions Recorded Confirmed Type Aspirin [Adult Low Dose Aspirin EC] 81 mg PO DAILY 03/29/19 04/16/24 History Multivit-Min/Iron/Folic/Lutein 1 tab PO DIRECTED 05/02/20 04/16/24 History [Centrum Silver Women Tablet] Cholecalciferol [Vitamin D3 (25 50 mcg PO DAILY 06/27/21 04/16/24 History Mcg = 1000 Iu)] Atorvastatin [Lipitor] 40 mg PO HS #30 tab 06/28/21 04/16/24 Rx Allergies Allergy/AdvReac Type Severity Reaction Status Date / Time latex Allergy Rash/Hives Verified 04/16/24 13:45 sulfamethoxazole Allergy Rash/Hives Verified 04/16/24 13:45 [From Bactrim] Objective - Vital Signs Vital signs: Intake & Output 10/20/24 10/21/24 10/21/24 18:59 06:59 18:59 Weight 71.214 kg - Constitutional General appearance: Present: cooperative - EENT Eyes: Present: EOMI ENT: Present: hearing grossly normal - Neck Neck: Present: normal ROM - Respiratory Respiratory: bilateral: CTA - Cardiovascular Rhythm: regular Heart sounds: normal: S1, S2 - Integumentary Integumentary: Present: normal turgor - Musculoskeletal Musculoskeletal: Present: gait normal - Psychiatric Psychiatric: Present: A&O x's 3, appropriate affect, intact judgment & insight - Additional findings Additional findings: Breast Exam: BRA: 38C Inspection: Bilateral grade 3 ptosis Palpation: Right breast: Multi positional exam fibrocystic changes no dominant masses or nodules of concern Right axilla: No adenopathy of concern Left breast: Multi positional exam fibrocystic changes no dominant masses or nodules of concern Left axilla: No adenopathy of concern Assessment and Plan Assessment: Impression: Abnormal right breast mammogram March 2024; stero biopsy Status post stereotactic core biopsy right breast/atypical lobular hyperplasia High risk for breast cancer We have discussed chemoprophylaxis, saw Dr. Walker and recommended raloxifene patient declined right breast mammogram on 10-18-24 BIRAD 2 Plan: I am in 6 months with physician exam at that time Patient to follow-up sooner any questions or concerns Discussed smoking cessation and she is going to consider this, she is going to consider discussing this with her primary care physician CC: Dr. Sheila Reed
== END ==
LOC: WWCWWP 10:15
PROVIDERS: ATTEND Surgery
DX: R92.8 Other abnormal and inconclusive findings on diagnostic imaging of breast (principal); N60.91 Unspecified benign mammary dysplasia of right breast; F17.210 Nicotine dependence, cigarettes, uncomplicated; Z88.2 Allergy status to sulfonamides; Z91.040 Latex allergy status